=== PATIENT | male | born 1955 | race Caucasian/White ===

== ENCOUNTER → 2017-05-12 06:01 | Outpatient (CLI) | payer OTHER, SELFPAY ==
[2017-05-12 08:24] LABS: Hemoglobin A1c 6.9 % (4.2-6.3)
[2017-05-12 08:31] LABS: AST(SGOT) 24 U/L (15-37); Alanine Aminotransfer ALT/SGPT 32 U/L (16-61); Albumin, Serum 3.3 g/dL (3.2-5.0); Alkaline Phosphatase 52 U/L (45-117); Anion Gap 6 (5-15); BUN 14 mg/dL (7-18); BUN/Creat Ratio 17.7 RATIO (10-20); Calcium,Total 8.3 mg/dL (8.5-10.1); Chloride 110 mmol/L (98-107); Cholesterol 181 mg/dL (200); Creatinine, Serum 0.79 mg/dL (0.70-1.30); EST Glomerular Filtration Rate 107 mL/min (>60); Est Glom Filt Rate - Afr Amer 129 mL/min (>60); Globulin 3.3 g/dL (2.2-4.2); Glucose 73 mg/dL (74-106); High Density Lipoprotein 44 mg/dL; Potassium 3.9 mmol/L (3.5-5.1); Protein, Total 6.6 g/dL (6.4-8.2); Sodium Level 143 mmol/L (136-145); Triglycerides 81 mg/dL; Very Low Density Lipoprotein 16 mg/dL (5-40)
== END ==
PROVIDERS: Family Provider Internal Medicine; PCP Internal Medicine; Visit Provider Nurse Practitioner
DX: E10.65 Type 1 diabetes mellitus with hyperglycemia (principal); E78.2 Mixed hyperlipidemia
CPT/HCPCS: 36415; 80053; 80061; 83036

== ENCOUNTER → 2017-08-28 06:00 | Outpatient (CLI) | payer OTHER, SELFPAY ==
[2017-08-28 07:48] LABS: Hemoglobin A1c 7.4 % (4.2-6.3)
[2017-08-28 07:50] LABS: ALB/GLOB Ratio 0.9 RATIO (0.9-2.4); AST(SGOT) 25 U/L (15-37); Alanine Aminotransfer ALT/SGPT 32 U/L (16-61); Albumin, Serum 3.2 g/dL (3.2-5.0); Alkaline Phosphatase 52 U/L (45-117); Anion Gap 7 (5-15); BUN 16 mg/dL (7-18); BUN/Creat Ratio 18.8 RATIO (10-20); Calcium,Total 8.3 mg/dL (8.5-10.1); Chloride 108 mmol/L (98-107); Cholesterol 180 mg/dL (200); Creatinine, Serum 0.85 mg/dL (0.70-1.30); EST Glomerular Filtration Rate 98 mL/min (>60); Est Glom Filt Rate - Afr Amer 118 mL/min (>60); Globulin 3.4 g/dL (2.2-4.2); Glucose 87 mg/dL (74-106); High Density Lipoprotein 41 mg/dL; Protein, Total 6.6 g/dL (6.4-8.2); Sodium Level 142 mmol/L (136-145); Triglycerides 123 mg/dL; Very Low Density Lipoprotein 25 mg/dL (5-40)
== END ==
PROVIDERS: Family Provider Internal Medicine; PCP Internal Medicine; Visit Provider Nurse Practitioner
DX: E10.9 Type 1 diabetes mellitus without complications (principal)
CPT/HCPCS: 36415; 80053; 80061; 83036

== ENCOUNTER → 2017-10-02 09:26 | Outpatient (CLI) | payer OTHER, SELFPAY ==
[2017-10-02 10:55] LABS: PTHIN 58.7 pg/mL (18.4-80.1)
[2017-10-05 16:56] LABS: Vitamin D 1,25-Dihydroxy 91.8 pg/mL (19.9-79.3)
== END ==
PROVIDERS: Family Provider Internal Medicine; PCP Internal Medicine; Visit Provider Nurse Practitioner
DX: E83.51 Hypocalcemia (principal)
CPT/HCPCS: 36415; 82330; 82652; 83970

== ENCOUNTER → 2018-01-01 05:55 | Outpatient (CLI) | payer OTHER, SELFPAY ==
[2018-01-01 06:48] LABS: Microalbumin,Random Urine 6.4 mg/L (NO RANGE EST.); Microalbumin:Creatinine Ratio 4.6 mg/g CRE (<30 mg/g CRE)
[2018-01-01 06:55] LABS: ALB/GLOB Ratio 0.9 RATIO (0.9-2.4); AST(SGOT) 34 U/L (15-37); Alanine Aminotransfer ALT/SGPT 62 U/L (16-61); Albumin, Serum 3.2 g/dL (3.2-5.0); Alkaline Phosphatase 102 U/L (45-117); Anion Gap 5 (5-15); BUN 14 mg/dL (7-18); BUN/Creat Ratio 16.2 RATIO (10-20); Calcium,Total 8.9 mg/dL (8.5-10.1); Chloride 109 mmol/L (98-107); Creatinine, Serum 0.86 mg/dL (0.70-1.30); EST Glomerular Filtration Rate 96 mL/min (>60); Est Glom Filt Rate - Afr Amer 116 mL/min (>60); Globulin 3.6 g/dL (2.2-4.2); Glucose 113 mg/dL (74-106); Potassium 4.2 mmol/L (3.5-5.1); Protein, Total 6.8 g/dL (6.4-8.2); Sodium Level 140 mmol/L (136-145)
[2018-01-01 07:06] LABS: Hemoglobin A1c 6.6 % (4.2-6.3)
== END ==
PROVIDERS: Family Provider Internal Medicine; PCP Internal Medicine; Referring Provider Nurse Practitioner; Visit Provider Nurse Practitioner
DX: E10.9 Type 1 diabetes mellitus without complications (principal)
CPT/HCPCS: 36415; 80053; 82043; 82570; 83036

== ENCOUNTER 2018-03-30 10:27 | Emergency (ER) | payer OTHER, SELFPAY ==
[2018-03-30 10:30] VITALS: BP 137/68; PULSE 103; RESP 18; TEMP 37.3; O2SAT 92; BMI 23.8
--- NOTE | 2018-03-30 10:41 | RAD_ITS ---
STUDY: X-RAY CHEST REASON FOR EXAM: Male, 62 years old. Flulike symptoms. TECHNIQUE: Single AP portable view of the chest. COMPARISON: None. FINDINGS: Minimal increased linear markings in the medial aspects of the lower lobes suggestive of atelectasis and/or early infiltrate. There is no demonstrated pleural abnormality. Normal size heart. Normal mediastinum and jake. Normal visualized pulmonary arteries. Normal visualized aortic arch and descending thoracic aorta. Normal visualized thoracic spine. Normal visualized ribs, clavicles, and shoulders. There is no demonstrated abnormality of the visualized soft tissue structures of the upper abdomen. RAD/Chest 1 View (Portable) IMPRESSION: Mild degree of increased linear markings in the medial aspects of both lower lobes as described. Follow-up is recommended. Electronically Signed: Alexander Bauer MD at 11:03 EST , Service support ,
--- NOTE | 2018-03-30 10:45 | ED.VISSUMM ---
- ER Visit Summary Date of Service: 03/30/18 Chief Complaint: Cough, congestion, fever History of Present Illness: The patient is a 62 M developed nausea, vomiting, and diarrhea on the evening of March 27. He continues with the symptoms. He is complaining of body aches and headache. He has noted decreased urination with some slight burning. He does have mild cough. Past history is significant for diabetes along with prostate cancer. Physical Examination: Blood pressure is 137/68, temperature 99.1, heart rate 103, respiratory rate 18, pulse ox 92% on room air. Patient sitting upright in bed. He is in no acute distress and nontoxic appearing. Head neck examination grossly unremarkable. Heart is regular rate and rhythm. Lungs sounds are clear. Abdomen is soft with no focal tenderness. Hypoactive bowel sounds are present. Test Results: CBC was normal white count with a left shift. Chemistry studies reveal BUN of 24. Glucose is 128. Portable chest x-ray shows mild increased linear markings in the medial aspect of both lower lobes. Emergency Department Course and Treatment: Patient is given 2 mg of morphine, 30 mg of Toradol, Zofran, and IV fluids. Influenza swab was obtained and returns positive for flu A. Patient is given Tamiflu. He has received 2 L of fluid and still has not had to urinate. Bladder scan shows 220 cc. Patient be discharged home with a prescription for Tamiflu. Treatment Plan: [] Disposition: Discharge Impression: Influenza A This note was generated with [employer] dictation software. It may contain incorrect words, spelling, and punctuation that were not noted in review of the chart prior to signing ED Disposition - Plan for ED Patient: Chief Complaint: General Illness Referrals: Yesi Lombardo NP-C [Nurse Practitioner] -
[2018-03-30] MEDS: Morphine 2 MG/ML Syringe IV (10:52)
[2018-03-30] MEDS: Ondansetron 4 MG/2 ML Vial IV (10:52)
[2018-03-30] MEDS: Ketorolac 30 MG/ML Syringe IV (10:52)
[2018-03-30] MEDS: 0.9% Normal Saline 1,000 ML 1000 ML IV (10:52)
[2018-03-30 10:57] LABS: Absolute Lymphocyte Count 0.56 X10^3/ul (0.83-4.51); Basophil# 0.01 X10^3/uL; Basophil% 0.1 % (0-1); Hematocrit 40.2 % (40-54); Hemoglobin 12.8 g/dl (13.0-16.5); Lymphocyte # 0.56 X10^3/ul (4.0); Lymphocyte % 5.8 % (19-41); Mean Corp Hgb Conc 31.8 g/gl (32-36); Mean Corpuscular Hgb 27.6 pg (27.0-32.0); Mean Corpuscular Volume 86.8 fL (80-94); Mean Platelet Vol. 10.1 fl (6.2-12.0); Monocyte# 1.11 X10^3/uL; Monocyte% 11.4 % (0-10); Neutrophil # 8.02 X10^3/uL (2.7-7.7); Neutrophil % 82.4 % (47-70); Platelet Count 173 K/mm3 (150-450); RBC Distribution Width CV 14.4 % (11.6-14.6); RBC Distribution Width SD 45.1 fl (35.1-43.9); Red Blood Count 4.63 M/mm3 (4.6-6.2); White Blood Count 9.7 K/mm3 (4.4-11.0)
[2018-03-30 10:58] LABS: Differential Indicated SCAN CRITERIA MET; POSITIVE COUNT NO; POSITIVE DIFFERENTIAL YES; POSITIVE MORPHOLOGY NO
[2018-03-30 11:07] LABS: Anion Gap 10 (5-15); BUN 24 mg/dL (7-18); BUN/Creat Ratio 21.1 RATIO (10-20); Calcium,Total 8.6 mg/dL (8.5-10.1); Chloride 101 mmol/L (98-107); Creatinine, Serum 1.14 mg/dL (0.70-1.30); EST Glomerular Filtration Rate 70 mL/min (>60); Est Glom Filt Rate - Afr Amer 84 mL/min (>60); Estimated Creatinine Clearance 66.67 ml/min; Glucose 128 mg/dL (74-106); Potassium 4.3 mmol/L (3.5-5.1); Sodium Level 135 mmol/L (136-145)
[2018-03-30 11:17] LABS: Differential Comment SCANNED
--- NOTE | 2018-03-30 11:32 | ED.RN ---
FLU POS A CALLED FROM THE LAB. DR PRADO AWARE
[2018-03-30 11:33] VITALS: BP 114/58; PULSE 69; RESP 16; TEMP 37.3; O2SAT 91
[2018-03-30] MEDS: Oseltamivir Phosphate 75 MG Capsule PO (11:50)
[2018-03-30] MEDS: 0.9% Normal Saline 1,000 ML 150 ML IV (11:50)
[2018-03-30] MEDS: 0.9% Normal Saline 1,000 ML 999 ML IV (12:03)
[2018-03-30 13:00] VITALS: BP 124/71; PULSE 73; RESP 16; TEMP 37.2; O2SAT 93
[2018-03-30 14:00] VITALS: BP 127/62; PULSE 81; RESP 16
--- NOTE | 2018-03-30 14:08 | ED.DEP ---
ED Disposition - Plan for ED Patient: Disposition: Home or Assisted Living Chief Complaint: General Illness Instructions: ED Flu Prescriptions: Oseltamivir Phosphate [Tamiflu] 75 mg PO BID #10 capsule Referrals: Yesi Lombardo NP-C [Nurse Practitioner] -
[2018-03-30 14:21] VITALS: BP 127/62; PULSE 81; RESP 16
== END 2018-03-30 14:23 | disposition home or self-care (01) ==
PROVIDERS: Emergency Provider Emergency Medicine; Family Provider Internal Medicine; PCP Internal Medicine
DX: J09.X3 Influenza due to identified novel influenza A virus with gastrointestinal manifestations (principal); E11.9 Type 2 diabetes mellitus without complications; Z85.46 Personal history of malignant neoplasm of prostate; Z79.4 Long term (current) use of insulin; Z79.82 Long term (current) use of aspirin
CPT/HCPCS: 71045; 80048; 85025; 87804; 96361; 96374; 96375; 99284; J7030; J2405

== ENCOUNTER → 2018-04-12 05:57 | Outpatient (CLI) | payer OTHER, SELFPAY ==
[2018-03-30 10:30] VITALS: BMI 23.8
[2018-04-12 08:04] LABS: Hemoglobin A1c 7.3 % (4.2-6.3)
== END ==
PROVIDERS: Family Provider Internal Medicine; PCP Internal Medicine; Referring Provider Nurse Practitioner; Visit Provider Nurse Practitioner
DX: E10.9 Type 1 diabetes mellitus without complications (principal)
CPT/HCPCS: 36415; 83036

== ENCOUNTER → 2018-04-14 06:59 | Outpatient (CLI) | payer OTHER, SELFPAY ==
[2018-03-30 10:30] VITALS: BMI 23.8
[2018-04-16 09:22] LABS: Vitamin D,25 Hydroxy 26.1 ng/mL (29.95-100.01)
== END ==
PROVIDERS: Family Provider Internal Medicine; PCP Internal Medicine; Referring Provider Nurse Practitioner; Visit Provider Nurse Practitioner
DX: R97.20 Elevated prostate specific antigen [PSA] (principal); E56.9 Vitamin deficiency, unspecified
CPT/HCPCS: 36415; 82306; 84153; G0103

== ENCOUNTER → 2018-04-24 09:31 | Outpatient (CLI) | payer OTHER, SELFPAY ==
[2018-03-30 10:30] VITALS: BMI 23.8
== END ==
PROVIDERS: Family Provider Internal Medicine; PCP Internal Medicine; Referring Provider Urology; Visit Provider Urology
DX: R97.20 Elevated prostate specific antigen [PSA] (principal)
CPT/HCPCS: 36415; 84153

== ENCOUNTER → 2018-05-10 08:00 | Outpatient (CLI) | payer OTHER, SELFPAY ==
--- NOTE | 2018-05-10 | IMM_PTH ---
PATIENT: NICOLE LANGE LOC: [facility] U#:[id number] AGE/SX: 69/M ROOM: RE05/10/[address]: AJ Gayle : 1955 BED: DIS: SPEC #: [id number] RECD: 05/14/18 11:53 STATUS: BIENVENIDO REQ #: [id number] ETIENNE: 05/10/18 00:[address]: Ingrid Chapa NP DEPT: IMMUNOHISTOCHEMISTRY RECD BY: Gracie Ralph ENTERED: 05/14/18 11:54 SP TYPE: IMMUNO OTHR DR: Dr. Kaylan Fajardo MD Tissues: E - PROSTATE LEFT Procedures: P40 (add) 34BE12 (initial) PHYSICIAN & INSTITUTION [place] [address] SPECIMEN INFORMATION: Tissue Source: E - Left prostate, mid, core biopsy Clinical Info: Elevated PSA Specimen Number: [id number] CPT code: 89082, 03376 METHODOLOGY: Deparaffinized sections of prefer/formalin-fixed tissue or PAP/DQ stained slides are incubated with monoclonal/polyclonal antibodies/oligonucleotide probes. Localization is made via biotin free immunoperoxidase method. Appropriate controls are performed and reacted as expected. Results on target cell population are indicated in the following table: RESULTS: ANTIBODY / CLONE RESULT Block E P40 (BC28) negative 34BE12 (34BE12) negative These tests were developed and their performance characteristics determined by [facility]. They may not have been cleared or approved by the U.S. Food and Drug Administration. The FDA has determined that such clearance or approval is not necessary. INTERPRETATION: E. Left prostate, mid, core biopsy: Adenocarcinoma. AM:severo 05/15/18
--- NOTE | 2018-05-10 08:00 | PROSBIL_PTH ---
PATIENT: NICOLE LANGE LOC: [facility] U#:[id number] AGE/SX: 69/M ROOM: RE05/10/[address]: AJ Gayle : 1955 BED: DIS: SPEC #: [id number] RECD: 05/10/18 16:30 STATUS: BIENVENIDO KRISTOPHER #: [id number] ETIENNE: 05/10/18 08:[address]: Ingrid Chapa NP DEPT: SURGICAL PATHOLOGY RECD BY: Ami Green ENTERED: 05/11/18 08:57 SP TYPE: PROST BX HOSSEIN DR: Dr. Kaylan Fajardo MD Tissues: A - PROSTATE RIGHT B - PROSTATE RIGHT C - PROSTATE RIGHT D - PROSTATE LEFT E - PROSTATE LEFT F - PROSTATE LEFT Procedures: PROSTATE BX HEADER OPERATION: Prostate biopsy PRE-OP DIAGNOSIS: Elevated PSA TISSUE SUBMITTED: A - Right apex, B - Right mid, C - Right base, D - Left apex, E - Left mid, F - Left base MICROSCOPIC DIAGNOSIS A. Right prostate, apex, core biopsy: Benign prostatic tissue. B. Right prostate, mid, core biopsy: Focal glandular atrophy. C. Right prostate, base, core biopsy: Focal high-grade prostatic intraepithelial neoplasia (HGPIN). Glandular atrophy. D. Left prostate, apex, core biopsy: Benign prostatic tissue. E. Left prostate, mid, core biopsy: Adenocarcinoma: [place] grade: 6 (3+3) Cores involved: 1 out of 2 cores Tissue involved: 2% Greatest tumor length: 1.5 mm See comment. F. Left prostate, base, core biopsy: Focal high-grade prostatic intraepithelial neoplasia (HGPIN). AM:severo 05/14/18 COMMENT E. Immunohistochemistry ([id number]) supports the above diagnosis. MICROSCOPIC DESCRIPTION Slides are reviewed. GROSS DESCRIPTION A - Received is one container designated prostate, right apex. The specimen consists of two elongated fragments of light patton-white soft tissue each measuring 1 cm in length and 0.1 cm in diameter. The specimen is totally submitted in one cassette. B - Received is one container designated prostate, right mid. The specimen consists of two elongated fragments of light patton-white soft tissue each measuring 1 cm in length and 0.1 cm in diameter. The specimen is totally submitted in one cassette. C - Received is one container designated prostate, right base. The specimen consists of two elongated fragments of light patton-white soft tissue each measuring 1 cm in length and 0.1 cm in diameter. The specimen is totally submitted in one cassette. D - Received is one container designated prostate, left apex. The specimen consists of two elongated fragments of light patton-white soft tissue each measuring 1 cm in length and 0.1 cm in diameter. The specimen is totally submitted in one cassette. E - Received is one container designated prostate, left mid. The specimen consists of two elongated fragments of light patton-white soft tissue each measuring 1 cm in length and 0.1 cm in diameter. The specimen is totally submitted in one cassette. F - Received is one container designated prostate, left base. The specimen consists of two elongated fragments of light patton-white soft tissue each measuring 1.5 cm in length and 0.1 cm in diameter. The specimen is totally submitted in one cassette. / AM:severo 05/11/18 TC:0 [facility]: [id number] x6 ADDENDUM ADDENDUM ADDENDUM ADDENDUM ADDENDUM ADDENDUM ADDENDUM ADDENDUM 06/13/2018 10:05 ADDENDUM 06/13/2018 10:05 ADDENDUM 06/13/2018 10:05 ADDENDUM 06/13/2018 10:05 ADDENDUM 06/13/2018 10:05 An order for Oncotype testing was received from Dr. Benítez. This necessitated case review, block and slide selection by pathologist at [facility]. Genomic Prostate Score = 26 Results of the complete Oncotype testing ([facility] report) are viewable in EMR under: Reports - Pathology - Lab Pathology Report, Scanned.
== END ==
PROVIDERS: Family Provider Internal Medicine; PCP Internal Medicine; Referring Provider Nurse Practitioner Adult Health; Visit Provider Nurse Practitioner Adult Health
DX: R97.20 Elevated prostate specific antigen [PSA] (principal)
CPT/HCPCS: 88305; 88341; 88342; G0416

== ENCOUNTER → 2018-08-14 | Outpatient (CLI) | payer OTHER, SELFPAY ==
[2018-08-14 07:37] LABS: Absolute Lymphocyte Count 1.59 X10^3/ul (0.83-4.51); Absolute Neutrophil Count 3.8 X10^3/uL (2.0-7.7); Basophil# 0.05 X10^3/uL; Basophil% 0.8 % (0-1); Eosinophil# 0.12 X10^3/uL; Eosinophils% 1.9 % (0-5); Hematocrit 40.6 % (40-54); Lymphocyte # 1.59 X10^3/ul (4.0); Mean Corpuscular Hgb 27.1 pg (27.0-32.0); Mean Corpuscular Volume 84.8 fL (80-94); Mean Platelet Vol. 10.1 fl (6.2-12.0); Monocyte# 0.84 X10^3/uL; Monocyte% 13.2 % (0-10); Neutrophil # 3.76 X10^3/uL (2.7-7.7); Neutrophil % 58.9 % (47-70); Platelet Count 335 K/mm3 (150-450); RBC Distribution Width CV 14.1 % (11.6-14.6); RBC Distribution Width SD 43.8 fl (35.1-43.9); Red Blood Count 4.79 M/mm3 (4.6-6.2); White Blood Count 6.4 K/mm3 (4.4-11.0)
[2018-08-14 07:41] LABS: POSITIVE COUNT NO; POSITIVE DIFFERENTIAL NO; POSITIVE MORPHOLOGY NO
[2018-08-14 08:06] LABS: Microalbumin,Random Urine < 5.0 mg/L (NO RANGE EST.)
[2018-08-14 08:18] LABS: ALB/GLOB Ratio 0.8 RATIO (0.9-2.4); AST(SGOT) 19 U/L (15-37); Alanine Aminotransfer ALT/SGPT 26 U/L (16-61); Albumin, Serum 3.1 g/dL (3.2-5.0); Alkaline Phosphatase 65 U/L (45-117); Anion Gap 3 (5-15); BUN 13 mg/dL (7-18); BUN/Creat Ratio 15.2 RATIO (10-20); Calcium,Total 8.5 mg/dL (8.5-10.1); Chloride 108 mmol/L (98-107); Cholesterol 188 mg/dL (200); Creatinine, Serum 0.86 mg/dL (0.70-1.30); EST Glomerular Filtration Rate 97 mL/min (>60); Est Glom Filt Rate - Afr Amer 117 mL/min (>60); Globulin 3.7 g/dL (2.2-4.2); Glucose 72 mg/dL (74-106); High Density Lipoprotein 44 mg/dL; Potassium 4.2 mmol/L (3.5-5.1); Protein, Total 6.8 g/dL (6.4-8.2); Sodium Level 140 mmol/L (136-145); Thyroid Stim Hormone (TSH) 1.53 uIU/mL (0.358-3.74); Triglycerides 78 mg/dL; Very Low Density Lipoprotein 16 mg/dL (5-40)
== END | disposition home or self-care (01) ==
LOC: LAB 06:09
PROVIDERS: Family Provider Internal Medicine; PCP Internal Medicine
DX: E10.65 Type 1 diabetes mellitus with hyperglycemia (principal)
CPT/HCPCS: 36415; 80053; 80061; 82043; 82570; 83036; 84439; 84443; 85025

== ENCOUNTER → 2018-10-19 | Outpatient (CLI) | payer OTHER, SELFPAY ==
[2018-10-19 17:49] LABS: PSA,Total- Diagnostic 7.21 ng/mL (0.0-4.0)
== END | disposition home or self-care (01) ==
LOC: LAB 15:23
PROVIDERS: Family Provider Internal Medicine; PCP Internal Medicine; Referring Provider Urology; Visit Provider Urology
DX: C61 Malignant neoplasm of prostate (principal)
CPT/HCPCS: 36415; 84153

== ENCOUNTER 2019-01-30 05:52 | Day surgery (SDC) | payer OTHER, SELFPAY ==
[2019-01-22 11:31] VITALS: BP 139/77; PULSE 70; RESP 16; TEMP 36.2; O2SAT 97; BMI 25.5
--- NOTE | 2019-01-22 11:36 | SDCEKG_ITS ---
Test Reason : Blood Pressure : / mmHG Vent. Rate : 063 BPM Atrial Rate : 063 BPM P-R Int : 148 ms QRS Dur : 086 ms QT Int : 390 ms P-R-T Axes : 048 043 050 degrees QTc Int : 399 ms Normal sinus rhythm Normal ECG Confirmed by KANIKA ERNST, THERESE ([id number]), scientific editor GEORGE SURESH ([id number]) on 01/28/2019 9:51:02 AM Referred By: Tadeo Benítez Confirmed By:THERESE BOUDREAUX MD
[2019-01-22 12:31] LABS: Anion Gap 5 (5-15); BUN 16 mg/dL (7-18); BUN/Creat Ratio 16.4 RATIO (10-20); Calcium,Total 8.2 mg/dL (8.5-10.1); Chloride 107 mmol/L (98-107); Creatinine, Serum 0.98 mg/dL (0.70-1.30); EST Glomerular Filtration Rate 83 mL/min (>60); Est Glom Filt Rate - Afr Amer 100 mL/min (>60); Estimated Creatinine Clearance 74.01 ml/min; Glucose 310 mg/dL (74-106); Hematocrit 39.8 % (40-54); Hemoglobin 12.6 g/dL (13.0-16.5); Mean Corp Hgb Conc 31.7 g/dL (32-36); Mean Corpuscular Hgb 27.4 pg (27.0-32.0); Mean Corpuscular Volume 86.5 fL (80-94); Mean Platelet Vol. 10.4 fl (6.2-12.0); Platelet Count 275 K/mm3 (150-450); Potassium 4.6 mmol/L (3.5-5.1); RBC Distribution Width CV 13.9 % (11.6-14.6); RBC Distribution Width SD 44.1 fl (35.1-43.9); Sodium Level 138 mmol/L (136-145); White Blood Count 5.4 K/mm3 (4.4-11.0)
[2019-01-22 13:13] LABS: Hemoglobin A1c 6.8 % (4.2-6.3)
[2019-01-30] VITALS (14 sets, daily range): BP systolic 86–129; BP diastolic 44–67; PULSE 57–91; RESP 16–17; TEMP 36.4–37.2; O2SAT 95–100; BMI 25.2
[2019-01-30 06:21] LABS: Bedside Glucose 200 mg/dL (70-110)
[2019-01-30] MEDS: Lactated Ringers 1,000 ML 100 ML IV ×2 (06:47→06:48)
[2019-01-30] MEDS: Cefazolin 2 GM in 0.9% Normal Saline 100 ML IV (07:28)
--- NOTE | 2019-01-30 07:30 | PROST_PTH ---
PATIENT: [place]ICOLE [place]ANGE [place] [facility] [id number] AGE/SX: 63/M ROOM: RE01/30/[address]: Dr. Tadeo Benítez MD : 1955 BED: DIS: 01/31/2019 SPEC #: [id number] RECD: 01/30/19 12:57 STATUS: BIENVENIDO RESteve #: [id number] ETIENNE: 01/30/19 07:[address]: Tadeo Benítez DEPT: SURGICAL PATHOLOGY RECD BY: Ami Green ENTERED: 01/30/19 13:22 SP TYPE: PROSTATE OTHR DR: Dr. Kaylan Fajardo MD Tissues: A - Adipose tissue B - Prostate, NOS Procedures: Surgery Specimen Level IV Surgery Specimen Level HEADER OPERATION: Lap, robotic radical prostatectomy PRE-OP DIAGNOSIS: Malignant neoplasm of prostate elevated PSA, nocturia TISSUE SUBMITTED: A. Fat of prostate, B. Prostate MICROSCOPIC DIAGNOSIS A. Fat over prostate: Mature adipose tissue, negative for carcinoma. B. Prostate, radical prostatectomy: Prostatic adenocarcinoma. See cancer summary below. SJ:severo 02/04/19 RADICAL PROSTATECTOMY CANCER SUMMARY Procedure: Radical Prostatectomy Prostate Size: Weight: 74 gm Size: 6 cm craniocaudally, 5 cm transversely and 4 cm anterior-posteriorly Histologic type: Acinar adenocarcinoma Histologic grade: Grade group 1 (Candice score 3+3=6) Tumor Quantitation: Estimated percentage of prostate involved by tumor: <5% Extraprostatic Extension: Not identified Seminal Vesicle Invasion: Not identified Lymphovascular Invasion: Not identified Perineural Invasion: Present, focal Margins: Uninvolved by invasive carcinoma. See comment. Treatment Effect: No known presurgical therapy Regional Lymph Nodes: No nodes submitted or found. Distant metastasis: Not applicable Additional Pathologic Findings: Focal high-grade prostatic intraepithelial neoplasia (HGPIN). - Benign prostatic hyperplasia. - Chronic inflammation. Pathologic Staging: pT2 pNx Mx The above summary is in compliance with [employer] (CAP) Cancer Protocol Checklist and [place] Joint Committee on Cancer (AJCC) Staging Manual, 8th Ed. COMMENT Focal high-grade prostatic intraepithelial neoplasia (HGPIN) is noted at the apical margin. The tumor involves predominantly the left lobe and present in the apical, mid and basal portion of the prostate lobe and measures 1.5 x 0.4 cm. The tumor is present in the discontinuous fashion. The tumor in the right lobe is present in the apical and mid portion of the prostate and measures 0.5 x 0.2 cm in greatest dimension. Please make reference to previous specimen ([id number]) left prostate, mid, core biopsy with diagnosis of adenocarcinoma and right prostate, base and left prostate base, core biopsies with diagnosis of focal high-grade prostatic intraepithelial neoplasia and right prostate, apex, core biopsy and left prostate, apex, core biopsy with diagnosis of benign prostatic tissue and right prostate, mid, core biopsy with diagnosis of focal glandular atrophy. Case has been reviewed in consultation with Dr. Ramirez who concurs with the above diagnosis. IDC:AM MICROSCOPIC DESCRIPTION Slides are reviewed. GROSS DESCRIPTION A - Received in fixative is one container labeled with the patient's name and designated fat of prostate. The specimen consists of an irregular piece of yellow adipose tissue measuring 7.5 x 1.5 x 0.5 cm. No mass lesion is identified. The entire specimen is submitted in two cassettes. Sections will be submitted after overnight fixation. / SJ:severo 01/30/19 B - Received in fixative is one container labeled with the patient's name and designated prostate. The specimen consists of a radical prostatectomy specimen consisting of prostate and bilateral seminal vesicles and vas deferens weighing 74 gm. The prostate measures 6 cm craniocaudally, 5 cm transversely and 4 cm anterior-posteriorly. The right seminal vesicle measures 4 x 1 x 1 cm and right vas deferens measures 3.5 cm in length and 0.5 cm in diameter and left seminal vesicle measures 2.5 x 2 x 1 cm and left vas deferens measures 2.5 cm in length and 0.5 cm in diameter. The prostate is inked as follows: anterior surface - yellow, posterior surface - black, right lateral surface - blue, left lateral surface - green. Bilateral seminal vesicles and vas deferens are inked as follows: posterior surface - black, anterior surface right seminal vesicle and vas deferens - blue, anterior surface left seminal vesicle and vas deferens - green. Sections do not reveal any obvious mass lesion. Podiatry Assistant sections are submitted in 20 cassettes as follows: 1 - bilateral seminal vesicles and vas deferens, 2 - distal, apical (urethral) margin, enface, 3 - proximal bladder base margin, enface, 4 - most basal portion of prostate, 510 - apical portion prostate, 11-14 - middle portion prostate, 15-20 - basal portion prostate. / SJ:rg 02/01/19 TC:0 CPT: 99758, 20288
--- NOTE | 2019-01-30 07:42 | PCM.DC ---
- Discharge Diagnoses Current Active Problems: Prostate cancer Reason(s) for Visit for Discharge Instructions: Robotic radical prostatectomy You will use the following diet at home:: Regular Your food should be the consistency of: Regular Discharge Activity: Return to Normal Activity, May Not Drive, May not drive while taking narcotic pain medications., May Shower Return to work on:: 03/06/19 May shower in (days): 1 Call your doctor if your incision/area has: Continuous Slow Oozing, Sudden Increased Bleeding, Increased Pain/ Swelling, Increased Redness, Foul Smelling Discharge, Swelling at the incision site Call your doctor if you observe: Fever of 101 or Higher, Inability to have a bowel movement, Uncontrolled pain Suture Line Care: Avoid Pulling/Pushing, Avoid Pinching/Bending Catheter: Chambers to leg bag Drain: [place] Instructions: Radical Prostatectomy Allergies/Adverse Reactions: Allergies enalaprilat [From Vasotec] Allergy (Severe, Verified 01/30/19 06:22) Unknown lovastatin Allergy (Severe, Verified 01/30/19 06:22) Unknown niacin Allergy (Severe, Verified 01/30/19 06:22) Unknown pravastatin [From Pravachol] Allergy (Severe, Verified 01/30/19 06:22) Unknown ramipril [From Altace] Allergy (Severe, Verified 01/30/19 06:22) Unknown rosuvastatin [From Crestor] Allergy (Severe, Verified 01/30/19 06:22) Unknown simvastatin [From Zocor] Allergy (Severe, Verified 01/30/19 06:22) Unknown hydrocodone Adverse Reaction (Verified 01/30/19 06:22) Nausea/Vom/Diarrhea Medications to take at Discharge aspirin 325 mg tablet 325 mg PO QDAY tab 04/27/17 insulin aspart U-100 100 unit/mL subcutaneous solution See Rx Instructions SC QDAY #90 ml 10/17/17 Multivitamin [Multiple Vitamins] 1 ea PO DAILY 01/22/19 Ciprofloxacin [Cipro] 500 mg PO BID #14 tab 01/30/19 Docusate Sodium [Colace] 100 mg PO BID #20 cap 01/30/19 Hydrocodone/Acetaminophen [[place] 5-325 Tablet] 1 ea PO Q6H PRN PRN 5 Days #14 tab 01/30/19 The following prescriptions were given: Ciprofloxacin [Cipro] 500 mg PO BID #14 tab Prescription Printed Docusate Sodium [Colace] 100 mg PO BID #20 cap Prescription Printed Hydrocodone/Acetaminophen [[place] 5-325 Tablet] 1 ea PO Q6H PRN PRN 5 Days #14 tab PRN Reason: Pain Score 4-10/10 Prescription Printed Primary Care Physician: Kaylan Fajardo [Primary Care Provider] - Test Results: Test results from this visit will be discussed in further detail at your follow-up appointment, if applicable. Please Follow Up With: Tadeo Benítez MD When: Call for an appointment 10 days Proposed Discharge Date: 01/31/19
[2019-01-30] MEDS: Bupivacaine Mpf 0.5% 30 ML VIAL (10:30)
--- NOTE | 2019-01-30 11:17 | PCM.OPRPT ---
Report of Operation Date of Procedure: 01/30/19 Pre-Operative Diagnosis: Prostate cancer Post-Operative Diagnosis: The same Surgery/Procedure Performed:: Laparoscopic robotic assisted radical prostatectomy with bilateral nerve sparing Description of Surgical Findings:: 63-year-old male taken back to the operating room at the smooth induction of general anesthesia he was placed supine on the table with the legs in stirrups he was positioned for a radical prostatectomy, his abdomen was shaved prepped and draped in usual sterile fashion use a Veress needle to enter the peritoneal cavity and then in the insufflated the peritoneal cavity with CO2 gas I then docked my ports camera port and robotic ports we then docked the robot I first dissected the colon off the lateral wall of the pelvis I then went down down to the pelvis open up the peritoneum over the vas deferens and seminal vesicles dissected out the vas deferens and seminal vesicles. And then swept the Denonvilliers' fascia from below the prostate all the way to the apex. We then pulled out of the pelvis and then we drop the bladder created the space of Retzius pulled the bladder on traction I cleaned the fat off the prostate I then incised the lateral pelvic fascia on the right side in the lateral pelvic fashion the left of the prostate dissected to the apex we then placed a stitch in the dorsal vein complex came back between the bladder and prostate dissected between the bladder and prostate the bladder off the prostate he had a large median lobe at the dissected wide to get around the median lobe and then dissected the bladder off the prostate completely I then raised the seminal vesicle vas deferens up on the right side we incised the fascia over the prostate and then released the neurovascular bundles on the right side coming back to the pedicle of the prostate pedicles taken with clips and then we stopped the neurovascular bundle off the prostate on the right side a very large round prostate. We then went to the left side and then again dissected the neurovascular bundle off the left side sweeping the tissue off the prostate were carried back to the pedicle pedicles and taken with clips and then we released neurovascular bundles all the way up to the apex of the prostate both the right and left side, I then transected through the dorsal vein complex transfer to the urethra nice urethral sparing surgery and then remove the prostate we reconstructed the bladder neck with a 0 Vicryl stitches to to close up the gap because of the large median lobe and then we did anastomosis between the bladder neck and the urethra over catheter. This was done very meticulous fashion there was no leakage at the end of the reconstruction and the anastomosis between the bladder neck and the urethra. I did a nice enough nerve sparing on both the right and left side very nice anastomosis between the bladder and the urethra we then extracted the prostate we closed our camera port with 2 figure of 8 stitches we closed our air seal port with a Jed Carlin stitch all the ports were removed the patient anesthetic reversed taken back to PACU in good condition with a catheter in place. Type of Anesthesia:: General Drains: richards - Admit VTE Documentation VTE Present on Admission: No VTE Mechan Device Prophylaxis: SCD's
[2019-01-30 11:36] LABS: Bedside Glucose 204 mg/dL (70-110)
[2019-01-30] MEDS: Ketorolac 15 MG/ML Vial IV ×3 (12:03→23:24)
[2019-01-30] MEDS: 0.45% Normal Saline 1,000 ML 125 ML IV ×2 (13:29→21:17)
[2019-01-30] MEDS: Docusate Sodium 100 MG Capsule PO ×2 (15:49→21:17)
[2019-01-30] MEDS: Ciprofloxacin 500 MG Tablet PO ×2 (15:49→21:17)
[2019-01-30] MEDS: Pantoprazole Sodium 20 MG Tablet PO (15:49)
[2019-01-30] MEDS: Insulin Lispro 100 UNIT/ML INSULN.PEN SC (15:51)
[2019-01-30 16:06] LABS: Bedside Glucose 257 mg/dL (70-110)
[2019-01-30] MEDS: Magnesium Hydroxide 30 ML UDC 15 ML PO (17:45)
[2019-01-30] MEDS: 0.9% Normal Saline 1,000 ML 999 ML IV (17:45)
[2019-01-30] MEDS: 0.9% Saline Lock 10 ML Syringe IV (17:52)
[2019-01-30 18:41] LABS: Absolute Lymphocyte Count 0.77 X10^3/uL (0.83-4.51); Absolute Neutrophil Count 15.7 X10^3/uL (2.0-7.7); Basophil# 0.03 X10^3/uL; Basophil% 0.2 % (0-1); Hematocrit 37.2 % (40-54); Hemoglobin 11.7 g/dL (13.0-16.5); Lymphocyte # 0.77 X10^3/ul (4.0); Lymphocyte % 4.3 % (19-41); Mean Corp Hgb Conc 31.5 g/dL (32-36); Mean Corpuscular Hgb 27.7 pg (27.0-32.0); Mean Corpuscular Volume 88.2 fL (80-94); Mean Platelet Vol. 9.9 fl (6.2-12.0); Monocyte# 1.22 X10^3/uL; Monocyte% 6.8 % (0-10); NRBC Flagged by Analyzer 0 % (0-5); Neutrophil # 15.73 X10^3/uL (2.7-7.7); Platelet Count 272 K/mm3 (150-450); RBC Distribution Width CV 13.9 % (11.6-14.6); RBC Distribution Width SD 44.5 fl (35.1-43.9); Red Blood Count 4.22 M/mm3 (4.6-6.2); White Blood Count 17.9 K/mm3 (4.4-11.0)
[2019-01-30] MEDS: Insulin Basal Pump SC (18:59)
[2019-01-31 02:28] VITALS: BP 94/47; PULSE 80; RESP 16; TEMP 37.2; O2SAT 95
[2019-01-31] MEDS: 0.45% Normal Saline 1,000 ML 125 ML IV (05:24)
[2019-01-31] MEDS: Enoxaparin 40 MG/0.4 ML Syringe SC (05:25)
[2019-01-31] MEDS: Ketorolac 15 MG/ML Vial IV (05:25)
[2019-01-31 06:06] LABS: Hematocrit 33.7 % (40-54); Hemoglobin 10.8 g/dL (13.0-16.5); Mean Corpuscular Hgb 27.6 pg (27.0-32.0); Mean Corpuscular Volume 86.2 fL (80-94); Mean Platelet Vol. 10.3 fl (6.2-12.0); Platelet Count 281 K/mm3 (150-450); RBC Distribution Width CV 13.9 % (11.6-14.6); RBC Distribution Width SD 43.8 fl (35.1-43.9); Red Blood Count 3.91 M/mm3 (4.6-6.2); White Blood Count 11.6 K/mm3 (4.4-11.0)
[2019-01-31 06:35] LABS: Anion Gap 9 (5-15); BUN 19 mg/dL (7-18); BUN/Creat Ratio 19.4 RATIO (10-20); Calcium,Total 7.7 mg/dL (8.5-10.1); Chloride 106 mmol/L (98-107); Creatinine, Serum 0.98 mg/dL (0.70-1.30); EST Glomerular Filtration Rate 83 mL/min (>60); Est Glom Filt Rate - Afr Amer 100 mL/min (>60); Estimated Creatinine Clearance 76.58 ml/min; Glucose 174 mg/dL (74-106); Sodium Level 137 mmol/L (136-145)
--- NOTE | 2019-01-31 07:13 | PCM.PROGNOTE ---
Subjective: doing well, no issues overnight - Physical Exam Vitals/I&O's: Vital Signs Temp Pulse Resp BP Pulse Ox 98.9 F 80 16 94/47 L 95 01/31/19 02:28 01/31/19 02:28 01/31/19 02:28 01/31/19 02:28 01/31/19 02:28 Oxygen Delivery Method Room Air Weight: 75.1 kg Body Mass Index (BMI) 25.2 Finger Stick Blood Glucose 204 Intake and Output for Last 24 Hours 01/29/19 01/30/19 01/31/19 23:59 23:59 23:59 Intake Total 4586.67 / 4586.67 1000 / 1000 Output Total 650 / 650 350 / 350 Balance 3936.67 / 3936.67 650 / 650 General: Alert, Oriented x3, Cooperative HEENT: Atraumatic, PERRLA, EOMI, Normocephalic Neck: Supple, No JVD, Negative Carotid Bruits Lungs: Clear to auscultation, Normal air movement Cardiovascular: Regular rate, No murmurs Abdomen: Bowel Sounds Present, Soft, Non Tender Extremities: No edema, Capillary Refill Less than 3 Seconds Skin: No rashes, No breakdown Musculoskeletal: No Tenderness to Palpation of Joints or Extremities Neurological: Cranial nerves II-XII grossly intact Psych/Mental Status: Normal Affect, Appropriate Laboratory Results 01/30/19 11:32: POC Glucose 204 H 01/30/19 15:48: POC Glucose 257 H 01/30/19 18:30: WBC 17.9 H, RBC 4.22 L, Hgb 11.7 L, Hct 37.2 L, MCV 88.2, MCH 27.7, MCHC 31.5 L, RDW Std Deviation 44.5 H, RDW Coeff of [place] 13.9, Plt Count 272, MPV 9.9, Immature Gran % (Auto) 0.700, Neut % (Auto) 88.0 H, Lymph % (Auto) 4.3 L, Marshall % (Auto) 6.8, Eos % (Auto) 0.0, Baso % (Auto) 0.2, Absolute Neuts (auto) 15.7 H, Absolute Lymphs (auto) 0.77 L, Nucleated RBC % 0 01/31/19 05:05: WBC 11.6 H, RBC 3.91 L, Hgb 10.8 L, Hct 33.7 L, MCV 86.2, MCH 27.6, MCHC 32.0, RDW Std Deviation 43.8, RDW Coeff of [place] 13.9, Plt Count 281, MPV 10.3 01/31/19 05:05: Sodium 137, Potassium 4.0, Chloride 106, Carbon Dioxide 22.0, Anion Gap 9, BUN 19 H, Creatinine 0.98, Estim Creat Clear Calc 76.58, Est GFR (MDRD) Af Amer 100, Est GFR (MDRD) Non-Af 83, BUN/Creatinine Ratio 19.4, Glucose 174 H, Calcium 7.7 L Current Medications Acetaminophen (Tylenol) 500 mg PO Q4H PRN PRN PRN Reason: Pain Score 1-1010 /Headache Belladonna Alkaloids/Opium (B & O) 60 mg RECTAL Q6H PRN PRN PRN Reason: Spasm Ciprofloxacin HCl (Cipro) 500 mg PO BID [facility] Last Admin: 01/30/19 21:17 Dose: 500 mg Documented by: Docusate Sodium (Colace) 100 mg PO BID [facility] Last Admin: 01/30/19 21:17 Dose: 100 mg Documented by: Enoxaparin Sodium (Lovenox) 40 mg SC DAILY@0600 [facility] Last Admin: 01/31/19 05:25 Dose: 40 mg Documented by: Lactated Ringer's () 1,000 mls @ 100 mls/hr IV .Q10H [facility] Last Admin: 01/31/19 00:12 Dose: Not Given Documented by: Sodium Chloride () 1,000 mls @ 125 mls/hr IV .Q8H [facility] Last Admin: 01/31/19 05:24 Dose: 125 mls/hr Documented by: Sodium Chloride () 250 mls @ 15 mls/hr IV .[id number] PRN PRN Reason: Saline Flush Insulin Aspart (Pump, Basal) 0 unit SC DAILY [facility] Last Admin: 01/30/19 18:59 Dose: 1 units Documented by: Ketorolac Tromethamine (Toradol) 15 mg IV Q6 [facility] Stop: 02/04/19 12:01 Last Admin: 01/31/19 05:25 Dose: 15 mg Documented by: Magnesium Hydroxide (Milk Of Magnesia) 15 ml PO DAILY [facility] Last Admin: 01/30/19 17:45 Dose: 15 ml Documented by: Morphine Sulfate () 2 mg IV Q2H PRN PRN PRN Reason: Pain Score 6-10/10 Multivitamins (Multivitamin) 1 tablet PO DAILY@0800 [facility] Ondansetron HCl (Zofran) 4 mg IV Q6H PRN PRN PRN Reason: Nausea Oxycodone HCl (Oxyir) 5 mg PO Q4H PRN PRN PRN Reason: Pain Score 1-10/10 Pantoprazole Sodium (Protonix) 20 mg PO DAILY [facility] Last Admin: 01/30/19 15:49 Dose: 20 mg Documented by: Sodium Chloride () 10 - 40 ml IV UD PRN PRN Reason: SALINE FLUSH Last Admin: 01/30/19 17:52 Dose: 10 ml Documented by: Tolterodine Tartrate (Detrol La) 4 mg PO DAILY PRN PRN PRN Reason: Spasms Medical Necessity - Tobacco Use Smoking Status: Never smoker Tobacco Use: Non-smoker Assessment/Plan All Active Problems (Last Reviewed 04/17/18 @ 08:03 by Tiffany Carlos) Diabetes mellitus (Acute) Postoperative day #1 status post radical prostatectomy doing well plan increase his diet to regular diet today if he can tolerate solids he can go home and is ambulate the hallways he will have to go home with a catheter and I will see him in 10 days.
[2019-01-31 07:48] VITALS: O2SAT 96
[2019-01-31 08:35] VITALS: BP 109/54; PULSE 80; RESP 14; TEMP 37; O2SAT 96
[2019-01-31] MEDS: Docusate Sodium 100 MG Capsule PO (08:41)
[2019-01-31] MEDS: Ciprofloxacin 500 MG Tablet PO (08:41)
[2019-01-31] MEDS: Pantoprazole Sodium 20 MG Tablet PO (08:42)
[2019-01-31] MEDS: Multivitamins,Therapeutic Tablet 1 TABLET PO (08:42)
[2019-01-31] MEDS: Insulin Basal Pump SC (08:43)
[2019-01-31] MEDS: Magnesium Hydroxide 30 ML UDC 15 ML PO (08:48)
== END 2019-01-31 12:20 | disposition home or self-care (01) ==
LOC: SDC 05:53 → AC 05:53 → SDC 08:47 → MS3 11:43
PROVIDERS: Anesthesiology; Family Provider Internal Medicine; PCP Internal Medicine; Referring Provider Urology; Visit Provider Urology
PROC: 0VT04ZZ Resection of Prostate, Percutaneous Endoscopic Approach (ICD-10-PCS; CPT 55866; principal; 2019-01-30 07:10)
DX: C61 Malignant neoplasm of prostate (principal); R97.20 Elevated prostate specific antigen [PSA]; E10.9 Type 1 diabetes mellitus without complications; Z96.41 Presence of insulin pump (external) (internal); Z79.82 Long term (current) use of aspirin; Z79.4 Long term (current) use of insulin
CPT/HCPCS: 55866; 36415; 80048; 82962; 83036; 85025; 85027; 86850; 86900; 86901; 88304; 88305; 88309; 93005; 99251; J7030; J7120; A4216; G0463; J2405

== ENCOUNTER → 2019-03-15 | Outpatient (CLI) | payer BC, SELFPAY ==
[2019-01-30 13:09] VITALS: BMI 25.2
[2019-03-15 07:52] LABS: ALB/GLOB Ratio 0.9 RATIO (0.9-2.4); AST(SGOT) 23 U/L (15-37); Alanine Aminotransfer ALT/SGPT 34 U/L (16-61); Albumin, Serum 3.3 g/dL (3.2-5.0); Alkaline Phosphatase 63 U/L (45-117); Anion Gap 3 (5-15); BUN 20 mg/dL (7-18); Calcium,Total 8.7 mg/dL (8.5-10.1); Chloride 109 mmol/L (98-107); Cholesterol 187 mg/dL (200); Creatinine, Serum 0.95 mg/dL (0.70-1.30); EST Glomerular Filtration Rate 85 mL/min (>60); Est Glom Filt Rate - Afr Amer 103 mL/min (>60); Globulin 3.6 g/dL (2.2-4.2); Glucose 136 mg/dL (74-106); High Density Lipoprotein 44 mg/dL; Potassium 4.1 mmol/L (3.5-5.1); Protein, Total 6.9 g/dL (6.4-8.2); Sodium Level 138 mmol/L (136-145); Triglycerides 104 mg/dL; Very Low Density Lipoprotein 21 mg/dL (5-40)
[2019-03-15 08:13] LABS: Hemoglobin A1c 7.4 % (4.2-6.3)
== END | disposition home or self-care (01) ==
PROVIDERS: Family Provider Internal Medicine; PCP Internal Medicine
DX: E10.9 Type 1 diabetes mellitus without complications (principal)
CPT/HCPCS: 36415; 80053; 80061; 83036

== ENCOUNTER → 2019-04-30 15:36 | Outpatient (CLI) | payer BC, SELFPAY ==
[2019-01-30 13:09] VITALS: BMI 25.2
[2019-04-30 17:34] LABS: PSA,Total - Annual Screen 0.02 ng/mL (0.00-4.00)
== END ==
PROVIDERS: PCP Internal Medicine; Referring Provider Urology; Visit Provider Urology
DX: C61 Malignant neoplasm of prostate (principal)
CPT/HCPCS: 36415; 84153; G0103

== ENCOUNTER → 2019-09-12 06:02 | Outpatient (CLI) | payer BC, SELFPAY ==
[2019-01-30 13:09] VITALS: BMI 25.2
[2019-09-12 06:31] LABS: Absolute Lymphocyte Count 1.35 X10^3/uL (0.83-4.51); Absolute Neutrophil Count 3.9 X10^3/uL (2.0-7.7); Basophil# 0.07 X10^3/uL; Basophil% 1.2 % (0-1); Eosinophil# 0.07 X10^3/uL; Eosinophils% 1.2 % (0-5); Hematocrit 39.7 % (40-54); Hemoglobin 12.5 g/dL (13.0-16.5); Lymphocyte # 1.35 X10^3/ul (4.0); Lymphocyte % 22.4 % (19-41); Mean Corp Hgb Conc 31.5 g/dL (32-36); Mean Corpuscular Hgb 27.1 pg (27.0-32.0); Mean Corpuscular Volume 85.9 fL (80-94); Mean Platelet Vol. 9.7 fl (6.2-12.0); Monocyte# 0.66 X10^3/uL; NRBC Flagged by Analyzer 0 % (0-5); Neutrophil # 3.86 X10^3/uL (2.7-7.7); Platelet Count 280 K/mm3 (150-450); RBC Distribution Width SD 46.2 fl (35.1-43.9); Red Blood Count 4.62 M/mm3 (4.6-6.2)
[2019-09-12 06:54] LABS: Microalbumin,Random Urine 6.2 mg/L (NO RANGE EST.); Microalbumin:Creatinine Ratio 5.5 mg/g CRE (<30 mg/g CRE)
[2019-09-12 07:01] LABS: Hemoglobin A1c 6.9 % (3.8-5.6)
[2019-09-12 07:15] LABS: ALB/GLOB Ratio 0.9 RATIO (0.9-2.4); AST(SGOT) 19 U/L (15-37); Alanine Aminotransfer ALT/SGPT 29 U/L (16-61); Albumin, Serum 3.3 g/dL (3.2-5.0); Alkaline Phosphatase 51 U/L (45-117); Anion Gap 6 (5-15); BUN 16 mg/dL (7-18); BUN/Creat Ratio 19.4 RATIO (10-20); Calcium,Total 8.3 mg/dL (8.5-10.1); Chloride 107 mmol/L (98-107); Cholesterol 185 mg/dL (200); Creatinine, Serum 0.82 mg/dL (0.70-1.30); EST Glomerular Filtration Rate 101 mL/min (>60); Est Glom Filt Rate - Afr Amer 122 mL/min (>60); Ferritin 4 ng/mL (26-388); Globulin 3.6 g/dL (2.2-4.2); Glucose 63 mg/dL (74-106); High Density Lipoprotein 47 mg/dL; Iron 28 ug/dL (65-175); PSA,Total- Diagnostic < 0.01 ng/mL (0.0-4.0); Potassium 3.7 mmol/L (3.5-5.1); Protein, Total 6.9 g/dL (6.4-8.2); Sodium Level 141 mmol/L (136-145); T4 Free Direct 0.93 ng/dL (0.76-1.46); Thyroid Stim Hormone (TSH) 1.42 uIU/mL (0.358-3.74); Triglycerides 86 mg/dL; Very Low Density Lipoprotein 17 mg/dL (5-40)
[2019-09-15 14:29] LABS: Vitamin A, Retinol 59.9 ug/dL (22.0-69.5); Zinc, Plasma or Serum 58 ug/dL (56-134)
== END ==
PROVIDERS: PCP Internal Medicine
DX: E10.9 Type 1 diabetes mellitus without complications (principal); K13.0 Diseases of lips; B00.1 Herpesviral vesicular dermatitis; C61 Malignant neoplasm of prostate
CPT/HCPCS: 36415; 80053; 80061; 82043; 82570; 82728; 83036; 83540; 84153; 84439; 84443; 84590; 84630; 85025

== ENCOUNTER → 2019-11-15 15:18 | Outpatient (CLI) | payer BC, SELFPAY ==
[2019-01-30 13:09] VITALS: BMI 25.2
[2019-11-15 15:43] LABS: Absolute Lymphocyte Count 1.31 X10^3/uL (0.83-4.51); Absolute Neutrophil Count 4.3 X10^3/uL (2.0-7.7); Basophil# 0.05 X10^3/uL; Basophil% 0.8 % (0-1); Eosinophil# 0.07 X10^3/uL; Eosinophils% 1.1 % (0-5); Hematocrit 39.9 % (40-54); Hemoglobin 12.7 g/dL (13.0-16.5); Lymphocyte # 1.31 X10^3/ul (4.0); Lymphocyte % 20.3 % (19-41); Mean Corp Hgb Conc 31.8 g/dL (32-36); Mean Corpuscular Hgb 27.1 pg (27.0-32.0); Mean Corpuscular Volume 85.3 fL (80-94); Mean Platelet Vol. 9.7 fl (6.2-12.0); Monocyte# 0.67 X10^3/uL; Monocyte% 10.4 % (0-10); NRBC Flagged by Analyzer 0 % (0-5); Neutrophil # 4.32 X10^3/uL (2.7-7.7); Neutrophil % 67.1 % (47-70); Platelet Count 330 K/mm3 (150-450); RBC Distribution Width SD 43.2 fl (35.1-43.9); Red Blood Count 4.68 M/mm3 (4.6-6.2); White Blood Count 6.4 K/mm3 (4.4-11.0)
[2019-11-15 16:22] LABS: Ferritin 7 ng/mL (26-388); Iron Binding Capacity,Total 302 ug/dL (250-450)
== END ==
PROVIDERS: PCP Internal Medicine; Referring Provider Internal Medicine; Visit Provider Internal Medicine
DX: E61.1 Iron deficiency (principal)
CPT/HCPCS: 36415; 82728; 83550; 85025

== ENCOUNTER → 2020-03-20 05:57 | Outpatient (CLI) | payer BC, SELFPAY ==
[2019-01-30 13:09] VITALS: BMI 25.2
[2020-03-20 07:59] LABS: AST(SGOT) 24 U/L (15-37); Alanine Aminotransfer ALT/SGPT 31 U/L (16-61); Albumin, Serum 3.3 g/dL (3.2-5.0); Alkaline Phosphatase 55 U/L (45-117); Anion Gap 2 (5-15); BUN 16 mg/dL (7-18); BUN/Creat Ratio 16.8 RATIO (10-20); Calcium,Total 8.6 mg/dL (8.5-10.1); Chloride 110 mmol/L (98-107); Creatinine, Serum 0.95 mg/dL (0.70-1.30); EST Glomerular Filtration Rate 85 mL/min (>60); Est Glom Filt Rate - Afr Amer 103 mL/min (>60); Globulin 3.3 g/dL (2.2-4.2); Glucose 141 mg/dL (74-106); Potassium 4.1 mmol/L (3.5-5.1); Protein, Total 6.6 g/dL (6.4-8.2); Sodium Level 139 mmol/L (136-145)
== END ==
PROVIDERS: PCP Internal Medicine
DX: E10.9 Type 1 diabetes mellitus without complications (principal)
CPT/HCPCS: 36415; 80053; 83036

== ENCOUNTER → 2020-09-10 05:55 | Outpatient (CLI) | payer OTHER, SELFPAY ==
[2019-01-30 13:09] VITALS: BMI 25.2
[2020-09-10 07:35] LABS: Absolute Lymphocyte Count 1.43 X10^3/uL (0.83-4.51); Absolute Neutrophil Count 4.7 X10^3/uL (2.0-7.7); Basophil# 0.06 X10^3/uL; Basophil% 0.8 % (0-1); Eosinophil# 0.18 X10^3/uL; Eosinophils% 2.5 % (0-5); Hematocrit 45.9 % (40-54); Hemoglobin 15.5 g/dL (13.0-16.5); Lymphocyte # 1.43 X10^3/ul (0.83-4.51); Lymphocyte % 19.9 % (19-41); Mean Corp Hgb Conc 33.8 g/dL (32-36); Mean Corpuscular Hgb 30.9 pg (27.0-32.0); Mean Corpuscular Volume 91.6 fL (80-94); Mean Platelet Vol. 10.1 fl (6.2-12.0); Monocyte% 11.2 % (0-10); NRBC Flagged by Analyzer 0 % (0-5); Neutrophil # 4.68 X10^3/uL (2.7-7.7); Neutrophil % 65.3 % (47-70); Platelet Count 292 K/mm3 (150-450); RBC Distribution Width CV 12.6 % (11.6-14.6); RBC Distribution Width SD 42.3 fl (35.1-43.9); Red Blood Count 5.01 M/mm3 (4.6-6.2); White Blood Count 7.2 K/mm3 (4.4-11.0)
[2020-09-10 08:04] LABS: Microalbumin,Random Urine < 5.0 mg/L (NO RANGE EST.)
[2020-09-10 08:13] LABS: AST(SGOT) 26 U/L (15-37); Alanine Aminotransfer ALT/SGPT 34 U/L (16-61); Albumin, Serum 3.2 g/dL (3.2-5.0); Alkaline Phosphatase 59 U/L (45-117); Anion Gap 6 (5-15); BUN 17 mg/dL (7-18); BUN/Creat Ratio 21.3 RATIO (10-20); Calcium,Total 8.7 mg/dL (8.5-10.1); Chloride 106 mmol/L (98-107); Cholesterol 198 mg/dL (200); EST Glomerular Filtration Rate 104 mL/min (>60); Est Glom Filt Rate - Afr Amer 126 mL/min (>60); Globulin 3.2 g/dL (2.2-4.2); Glucose 132 mg/dL (74-106); High Density Lipoprotein 44 mg/dL; Potassium 4.1 mmol/L (3.5-5.1); Protein, Total 6.4 g/dL (6.4-8.2); Sodium Level 139 mmol/L (136-145); T4 Free Direct 0.94 ng/dL (0.76-1.46); Thyroid Stim Hormone (TSH) 1.64 uIU/mL (0.358-3.74); Triglycerides 131 mg/dL; Very Low Density Lipoprotein 26 mg/dL (5-40)
[2020-09-10 08:35] LABS: Hemoglobin A1c 6.3 % (3.8-5.6)
== END ==
PROVIDERS: PCP Internal Medicine
DX: E10.9 Type 1 diabetes mellitus without complications (principal)
CPT/HCPCS: 36415; 80053; 80061; 82043; 82570; 83036; 84439; 84443; 85025

== ENCOUNTER → 2021-03-16 06:03 | Outpatient (CLI) | payer OTHER, SELFPAY ==
[2021-03-16 08:08] LABS: ALB/GLOB Ratio 0.9 RATIO (0.9-2.4); AST(SGOT) 23 U/L (15-37); Alanine Aminotransfer ALT/SGPT 35 U/L (16-61); Alkaline Phosphatase 52 U/L (45-117); Anion Gap 5 (5-15); BUN 16 mg/dL (7-18); BUN/Creat Ratio 17.6 RATIO (10-20); Calcium,Total 8.5 mg/dL (8.5-10.1); Chloride 106 mmol/L (98-107); Creatinine, Serum 0.91 mg/dL (0.70-1.30); EST Glomerular Filtration Rate 90 mL/min (>60); Est Glom Filt Rate - Afr Amer 108 mL/min (>60); Globulin 3.4 g/dL (2.2-4.2); Glucose 115 mg/dL (74-106); Potassium 4.3 mmol/L (3.5-5.1); Protein, Total 6.4 g/dL (6.4-8.2); Sodium Level 141 mmol/L (136-145)
[2021-03-16 08:14] LABS: Hemoglobin A1c 6.2 % (3.8-5.6)
== END ==
PROVIDERS: PCP Internal Medicine
DX: E10.9 Type 1 diabetes mellitus without complications (principal)
CPT/HCPCS: 36415; 80053; 83036

== ENCOUNTER 2021-04-30 12:06 | Outpatient (CLI) | payer OTHER, SELFPAY ==
[2021-04-30 12:53] LABS: PSA,Total- Diagnostic 0.02 ng/mL (0.0-4.0)
== END 2021-04-30 23:59 | disposition home or self-care (01) ==
PROVIDERS: PCP Internal Medicine; Referring Provider Urology; Visit Provider Urology
DX: C61 Malignant neoplasm of prostate (principal)
CPT/HCPCS: 36415; 84153

== ENCOUNTER → 2021-11-16 | Outpatient (CLI) | payer OTHER, SELFPAY ==
[2021-11-16 07:54] LABS: Microalbumin,Random Urine < 5.0 mg/L (NO RANGE EST.)
[2021-11-16 07:59] LABS: ALB/GLOB Ratio 0.9 RATIO (0.9-2.4); AST(SGOT) 19 U/L (15-37); Alanine Aminotransfer ALT/SGPT 31 U/L (16-61); Alkaline Phosphatase 55 U/L (45-117); Anion Gap 6 (5-15); BUN 21 mg/dL (7-18); BUN/Creat Ratio 23.4 RATIO (10-20); Calcium,Total 8.3 mg/dL (8.5-10.1); Chloride 107 mmol/L (98-107); Cholesterol 176 mg/dL (200); EST Glomerular Filtration Rate 90 mL/min (>60); Est Glom Filt Rate - Afr Amer 109 mL/min (>60); Ferritin 77 ng/mL (26-388); Globulin 3.5 g/dL (2.2-4.2); Glucose 148 mg/dL (74-106); High Density Lipoprotein 43 mg/dL; Iron 59 ug/dL (65-175); Potassium 4.7 mmol/L (3.5-5.1); Protein, Total 6.5 g/dL (6.4-8.2); Sodium Level 140 mmol/L (136-145); Thyroid Stim Hormone (TSH) 1.67 uIU/mL (0.358-3.74); Triglycerides 127 mg/dL; Very Low Density Lipoprotein 25 mg/dL (5-40)
[2021-11-16 08:10] LABS: Vitamin D,25 Hydroxy 48.2 ng/mL
== END | disposition home or self-care (01) ==
PROVIDERS: PCP Internal Medicine; Referring Provider Nurse Practitioner Family; Visit Provider Nurse Practitioner Family
DX: E10.9 Type 1 diabetes mellitus without complications (principal); D64.9 Anemia, unspecified
CPT/HCPCS: 36415; 80053; 80061; 82043; 82306; 82570; 82728; 83540; 84443

== ENCOUNTER → 2022-05-12 | Outpatient (CLI) | payer SELFPAY ==
[2022-05-12 11:26] LABS: PSA,Total- Diagnostic < 0.01 ng/mL (0.0-4.0)
== END | disposition home or self-care (01) ==
PROVIDERS: PCP Internal Medicine; Visit Provider Urology
DX: C61 Malignant neoplasm of prostate (principal)
CPT/HCPCS: 36415; 84153

== ENCOUNTER → 2022-05-20 | Outpatient (CLI) | payer SELFPAY ==
--- NOTE | 2022-05-20 14:24 | CT_ITS ---
INDICATION: PROSTATE CA EXAMINATION: CT ABDOMEN AND PELVIS WITH AND WITHOUT CONTRAST - CT Abdomen And Pelvis WO/W Contrast Injection TECHNIQUE: Helically acquired images were obtained of the abdomen and pelvis following IV contrast. A radiation dose optimization technique was used for this scan. IV Contrast dosage and agent: 100 cc Isovue-300 Oral contrast: None. COMPARISON: None. FINDINGS: LOWER CHEST: Lung bases are clear. No cardiomegaly or pericardial effusion. LIVER: Homogeneous. 1.6 cm cyst in the liver. GALLBLADDER AND BILIARY TREE: No calcified gallstones. No gallbladder distension or wall edema. No intra- or extrahepatic biliary ductal dilation. PANCREAS: No focal cystic or solid mass. SPLEEN: Normal size without focal cystic or solid mass. ADRENAL GLANDS: No nodules. KIDNEYS AND URETERS: Normal renal size and position. No hydronephrosis. PERITONEUM: No ascites or free air. No other fluid collection. BOWEL: No evidence of acute appendicitis. Mild fluid distended small bowel suggesting an ileus. No focal inflammatory change. LYMPH NODES: No enlarged mesenteric or retroperitoneal lymph nodes. VESSELS: Aorta is calcified. URINARY BLADDER: Unremarkable. REPRODUCTIVE ORGANS: No pelvic masses. ABDOMINAL WALL: No discrete abdominal or pelvic wall hernia. BONES: No lytic or blastic abnormality. Spondylolysis of L5. CT/CT Abd/Pelvis W/WO Contrast IMPRESSION: Hepatic cysts. Small bowel ileus. No definite sign of obstruction. Electronically Signed: Abhilash Reeves DO at 16:41 EDT Reading Location ID and State: [facility] / [place] Tel [phone], Service support ,
[2022-05-20 15:11] LABS: CREATININE FINGERSTICK < 0.9 mg/dL (0.70-1.30); EGFR FINGERSTICK > 60.0000 mL/min (>60)
== END | disposition home or self-care (01) ==
LOC: CT 14:21
PROVIDERS: PCP Internal Medicine; Referring Provider Urology; Visit Provider Urology
DX: R31.0 Gross hematuria (principal); C61 Malignant neoplasm of prostate
CPT/HCPCS: 74178; Q9967

== ENCOUNTER → 2022-07-08 | Outpatient (CLI) | payer MEDICARE, OTHER, SELFPAY ==
[2022-07-08 08:01] LABS: Glucose 96 mg/dL (74-106)
[2022-07-09 13:07] LABS: C-Peptide < 0.1 ng/mL (1.1-4.4)
== END | disposition home or self-care (01) ==
LOC: LAB 05:59
PROVIDERS: PCP Internal Medicine; Referring Provider Nurse Practitioner Family; Visit Provider Nurse Practitioner Family
DX: E10.9 Type 1 diabetes mellitus without complications (principal)
CPT/HCPCS: 36415; 82947; 84681

== ENCOUNTER 2022-07-12 15:23 | Emergency (ER) | payer MEDICARE, OTHER, SELFPAY ==
[2022-07-12 15:24] VITALS: BP 140/78; PULSE 88; RESP 18; TEMP 36; O2SAT 98; BMI 23.6
[2022-07-12 15:34] VITALS: TEMP 36; O2SAT 98
--- NOTE | 2022-07-12 15:49 | EDS_ITS ---
HPI History of Present Illness Chief Complaint: Trauma Narrative Narrative: 67-year-old male presenting with laceration to the right leg. He states he was working in an attic and ceiling. He did not fall to the ground. He is able to catch himself. He sustained a V-shaped laceration on the right tibial region midway. Last tetanus unknown. Patient was able to get bleeding under control. He states his pain is 2-3 out of 10. He is able to ambulate into the ER. [facility] Medical History Diabetes type 1, uncontrolled Mixed hyperlipidemia Prostate cancer Home Medications aspirin 325 mg tablet 325 mg PO QDAY 04/27/17 [History Last Taken 01/17/19] multivitamin 1 ea PO DAILY supplement 01/22/19 [History Last Taken Unknown] docusate sodium 100 mg capsule 100 mg PO BID #20 caps 01/30/19 [Rx Last Taken Unknown] cholecalciferol (vitamin D3) 50 mcg (2,000 unit) capsule 50 mcg PO DAILY 11/22/21 [History Last Taken Unknown] insulin lispro 100 unit/mL subcutaneous solution (Humalog U-100 Insulin) 100 unit continuous subcutaneous infusion .continuous #90 mL 11/24/21 [Rx Last Taken Unknown] Easy Touch Lancets 30 gauge (lancets) #100 ea 06/15/22 [Rx Last Taken Unknown] blood sugar diagnostic (True Metrix Glucose Test Strip) #100 ea 06/15/22 [Rx Last Taken Unknown] blood-glucose meter (True Metrix Glucose Meter) #1 ea 06/15/22 [Rx Last Taken Unknown] cephalexin 500 mg capsule 500 mg PO Q12 #14 CAPSULES 07/12/22 [Rx Last Taken Unknown] Allergy/AdvReac Type Severity Reaction Status Date / Time enalaprilat [From Vasotec] Allergy Severe Unknown Verified 07/12/22 15:33 lovastatin Allergy Severe Unknown Verified 07/12/22 15:33 niacin Allergy Severe Unknown Verified 07/12/22 15:33 pravastatin [From Pravachol] Allergy Severe Unknown Verified 07/12/22 15:33 ramipril [From Altace] Allergy Severe Unknown Verified 07/12/22 15:33 rosuvastatin [From Crestor] Allergy Severe Unknown Verified 07/12/22 15:33 simvastatin [From Zocor] Allergy Severe Unknown Verified 07/12/22 15:33 hydrocodone AdvReac Nausea/Vom/ Verified 07/12/22 15:33 Diarrhea Family History Daughter Diabetes Other Kidney disease Surgical History H/O prostatectomy Social History Smoking Status: Never smoker second hand exposure: No alcohol intake: never substance use type: does not use ROS ROS ED Constitutional Constitutional ED: Denies chills, fever(s) or sweats Eyes Eyes: Denies blurry vision or change in vision ENT ENT ED: Denies ear pain or sore throat Cardiovascular Cardiovascular: Denies chest pain, palpitations or racing heartbeat Respiratory/Chest Respiratory/Chest: Denies cough, dyspnea or sputum Gastrointestinal Gastrointestinal: Denies abdominal pain, constipation, diarrhea, nausea or vomiting Genitourinary Genitourinary ED: Denies dysuria, hematuria or urinary frequency Musculoskeletal Musculoskeletal: Denies arthralgias, myalgias or neck pain Integumentary Reports other Details: Laceration right tibia ; Denies abscess or Abrasions Neurologic Neurologic: Denies headache(s), paresthesias or weakness Psychiatric Psychiatric: Denies anxiety, depression, suicidal ideation or suicidal thoughts Endocrine Endocrinology: Denies polydipsia or polyuria EXAM Physical Exam Const Vital Signs: 07/12/22 15:24 07/12/22 15:34 07/12/22 15:24 Temperature 96.8 F L 96.8 F L 96.8 F L Temperature Source Temporal Temporal Pulse Rate 88 88 Respiratory Rate 18 18 Respiratory Effort Normal Non-Labored Respiratory Depth Normal Respiratory Pattern Normal Blood Pressure 140/78 H 140/78 H Blood Pressure Mean 98 98 Pulse Ox 98 98 98 Oxygen Delivery Method Room Air Room Air Room Air 07/12/22 19:25 07/12/22 20:14 Temperature Temperature Source Pulse Rate Respiratory Rate 18 18 Respiratory Effort Respiratory Depth Respiratory Pattern Blood Pressure Blood Pressure Mean Pulse Ox Oxygen Delivery Method Room Air Positive well nourished General Appearance ED: NAD HEENT normocephalic and atraumatic Resp normal respiratory effort Cardio regular rate and regular rhythm Extremity Extremity Narrative: V-shaped laceration mid tibia. Each side is 7 cm in length and linear. There is no tendon involvement. There appears to be no foreign bodies. Bleeding is controlled. Mildly tender to palpation Neuro oriented x3 and CN's II-XII intact bilaterally Sensorium / Orientation: alert Motor Exam: strength 5/5 throughout Psych mental status grossly normal Skin Skin Narrative: As described above MDM MDM MDM Narrative Medical decision making narrative: Patient presenting with 14 cm laceration on the right tibia and a V-shape. Bleeding is well controlled. Last tetanus unknown so I updated it today. Patient requested ibuprofen for pain. I do not believe he needs any imaging is ambulatory. The wound was probed and I do not see any foreign bodies. There is no active bleeding. Does not appear any tendon involvement. The wound was cleaned with Shur-Clens. The wound was anesthetized using 12 cc of lidocaine with epinephrine with good anesthesia achieved. Wound was irrigated with 500 cc of sterile saline. Once 3-0 Ethilon suture was used at the apex of the laceration to approximate. After this three 3-0 Ethilon sutures were used in horizontal mattress suture to approximate the wound margins on each side. One 3-0 Ethilon suture was used on the right upper aspect of the laceration for better closure. Good approximation was achieved. A total of 7 sutures were placed. Patient tolerated procedure well. Patient will be started on Keflex to ensure he does not get infection as he is diabetic and the wound is below the waist. First dose was given in the ER. He is counseled on wound care and follow-up. He is counseled to be cautious walking is not serious sutures. He acknowledged understanding. Return precautions discussed. Impression: 1. 14 cm right leg laceration Discharge Plan Triage Chief Complaint: Trauma ED Provider: Ernesto Montana Dx/Rx/DC Orders Instructions: ED Laceration Extremity Prescriptions: New cephalexin 500 mg capsule 500 mg PO Q12 Qty: 14 0RF No Action aspirin 325 mg tablet 325 mg PO QDAY Rx Instructions: will stop 7 days prior cholecalciferol (vitamin D3) 50 mcg (2,000 unit) capsule 50 mcg PO DAILY multivitamin 1 EACH tablet 1 ea PO DAILY docusate sodium 100 MG capsule 100 mg PO BID Qty: 20 0RF insulin lispro [Humalog U-100 Insulin] 100 unit/mL solution 100 unit continuous subcutaneous infusion .continuous Qty: 90 1RF (DME) blood-glucose meter [True Metrix Glucose Meter] Misc See Rx Instructions .Route Qty: 1 0RF Rx Instructions: As directed (DME) True Metrix Glucose Test Strip Strip See Rx Instructions .Route Qty: 100 10RF Rx Instructions: 4x/day (DME) lancets [Easy Touch Lancets] 30 gauge misc See Rx Instructions .Route Qty: 100 5RF Rx Instructions: 4x/day Primary Care Provider: Kaylan Fajardo Referrals: Kaylan Fajardo MD [Primary Care Provider] - Disposition Disposition: Home, Self Care Discharge Date/Time: 07/12/22 20:19
[2022-07-12] MEDS: Ibuprofen 600 MG Tablet PO (15:53)
[2022-07-12] MEDS: Diphth,Pertuss(Acell),Tet Vac 0.5 ML Vial IM (15:56)
[2022-07-12] MEDS: Lidocaine 1% /Epi 1:100 (20ml) 20 ML Vial INFILT (16:06)
--- NOTE | 2022-07-12 16:29 | CM.ED ---
Social Work Patient and reports they are unsure whether they have Advanced Directives, information given to patient regarding AD and scheduling an appointment. Kaur Barbosa [employer], [employer]
[2022-07-12 19:25] VITALS: RESP 18
[2022-07-12 20:14] VITALS: RESP 18
[2022-07-12] MEDS: Cephalexin 250 MG Capsule 500 MG PO (20:17)
== END 2022-07-12 20:19 | disposition home or self-care (01) ==
PROVIDERS: Emergency Provider Student in an Organized Health Care Education/Training Program; PCP Internal Medicine; Visit Provider Student in an Organized Health Care Education/Training Program
DX: S81.811A Laceration without foreign body, right lower leg, initial encounter (principal); Z23 Encounter for immunization; X58.XXXA Exposure to other specified factors, initial encounter
CPT/HCPCS: 12005; 90715; 96372; 99283

== ENCOUNTER → 2022-09-20 | Outpatient (CLI) | payer MEDICARE, OTHER, SELFPAY ==
[2022-09-20 06:39] LABS: Absolute Lymphocyte Count 1.61 X10^3/uL (0.83-4.51); Absolute Neutrophil Count 3.1 X10^3/uL (2.0-7.7); Basophil# 0.07 X10^3/uL; Basophil% 1.2 % (0-1); Eosinophil# 0.19 X10^3/uL; Eosinophils% 3.4 % (0-5); Hematocrit 47.5 % (40-54); Hemoglobin 16.1 g/dL (13.0-16.5); Lymphocyte # 1.61 X10^3/ul (0.83-4.51); Lymphocyte % 28.6 % (19-41); Mean Corp Hgb Conc 33.9 g/dL (32-36); Mean Corpuscular Hgb 31.9 pg (27.0-32.0); Mean Corpuscular Volume 94.2 fL (80-94); Monocyte# 0.61 X10^3/uL; Monocyte% 10.9 % (0-10); NRBC Flagged by Analyzer 0 % (0-5); Neutrophil # 3.12 X10^3/uL (2.7-7.7); Neutrophil % 55.5 % (47-70); Platelet Count 230 K/mm3 (150-450); RBC Distribution Width CV 12.4 % (11.6-14.6); RBC Distribution Width SD 42.6 fl (35.1-43.9); Red Blood Count 5.04 M/mm3 (4.6-6.2); White Blood Count 5.6 K/mm3 (4.4-11.0)
[2022-09-20 07:18] LABS: Cholesterol 173 mg/dL (200); Ferritin 149 ng/mL (26-388); High Density Lipoprotein 50 mg/dL; Iron 97 ug/dL (65-175); Iron Binding Capacity,Total 295 ug/dL (250-450); PERCENT IRON SATURATION 32.9 % (15.0-55.0); Triglycerides 76 mg/dL; Very Low Density Lipoprotein 15 mg/dL (5-40)
== END | disposition home or self-care (01) ==
LOC: LAB 05:56
PROVIDERS: PCP Internal Medicine; Referring Provider Internal Medicine; Visit Provider Internal Medicine
DX: D50.8 Other iron deficiency anemias (principal); E78.2 Mixed hyperlipidemia
CPT/HCPCS: 36415; 80061; 82728; 83540; 83550; 85025

== ENCOUNTER → 2022-12-26 | Outpatient (CLI) | payer MEDICARE, OTHER, SELFPAY ==
[2022-12-26 09:57] LABS: Microalbumin,Random Urine 6.4 mg/L (NO RANGE EST.); Microalbumin:Creatinine Ratio 30.4 mg/g CRE (<30 mg/g CRE)
[2022-12-26 10:13] LABS: AST(SGOT) 23 U/L (15-37); Alanine Aminotransfer ALT/SGPT 35 U/L (16-61); Albumin, Serum 3.4 g/dL (3.2-5.0); Alkaline Phosphatase 48 U/L (45-117); Anion Gap 3 (5-15); BUN 17 mg/dL (7-18); BUN/Creat Ratio 18.9 RATIO (10-20); Calcium,Total 9.7 mg/dL (8.5-10.1); Chloride 105 mmol/L (98-107); EST Glomerular Filtration Rate 90 mL/min (>60); Est Glom Filt Rate - Afr Amer 109 mL/min (>60); Globulin 3.4 g/dL (2.2-4.2); Glucose 136 mg/dL (74-106); Potassium 4.3 mmol/L (3.5-5.1); Protein, Total 6.8 g/dL (6.4-8.2); Sodium Level 138 mmol/L (136-145)
== END | disposition home or self-care (01) ==
LOC: LAB 09:12
PROVIDERS: PCP Internal Medicine; Referring Provider Nurse Practitioner Family; Visit Provider Nurse Practitioner Family
DX: E10.9 Type 1 diabetes mellitus without complications (principal)
CPT/HCPCS: 36415; 80053; 82043; 82570

== ENCOUNTER → 2023-10-09 | Outpatient (CLI) | payer MEDICARE, OTHER, SELFPAY ==
[2023-10-09 07:04] LABS: Absolute Lymphocyte Count 1.17 X10^3/uL (0.83-4.51); Absolute Neutrophil Count 3.1 X10^3/uL (2.0-7.7); Basophil# 0.04 X10^3/uL; Basophil% 0.8 % (0-1); Eosinophil# 0.13 X10^3/uL; Eosinophils% 2.6 % (0-5); Hematocrit 44.6 % (40-54); Hemoglobin 14.8 g/dL (13.0-16.5); Lymphocyte # 1.17 X10^3/ul (0.83-4.51); Lymphocyte % 23.3 % (19-41); Mean Corp Hgb Conc 33.2 g/dL (32-36); Mean Corpuscular Hgb 30.8 pg (27.0-32.0); Mean Corpuscular Volume 92.9 fL (80-94); Mean Platelet Vol. 10.3 fl (6.2-12.0); Monocyte# 0.53 X10^3/uL; Monocyte% 10.6 % (0-10); NRBC Flagged by Analyzer 0 % (0-5); Neutrophil # 3.14 X10^3/uL (2.7-7.7); Neutrophil % 62.5 % (47-70); Platelet Count 243 K/mm3 (150-450); RBC Distribution Width CV 12.3 % (11.6-14.6); RBC Distribution Width SD 42.3 fl (35.1-43.9)
[2023-10-09 07:41] LABS: Ferritin 298 ng/mL (26-388); Iron 95 ug/dL (65-175); Iron Binding Capacity,Total 236 ug/dL (250-450); PERCENT IRON SATURATION 40.3 % (15.0-55.0); PSA,Total- Diagnostic < 0.01 ng/mL (0.0-4.0)
[2023-10-09 07:48] LABS: AST(SGOT) 27 U/L (15-37); Alanine Aminotransfer ALT/SGPT 35 U/L (16-61); Albumin, Serum 3.1 g/dL (3.2-5.0); Alkaline Phosphatase 50 U/L (45-117); Anion Gap 6 (5-15); BUN 19 mg/dL (7-18); BUN/Creat Ratio 24.8 RATIO (10-20); Calcium,Total 8.4 mg/dL (8.5-10.1); Chloride 110 mmol/L (98-107); Cholesterol 156 mg/dL (200); Creatinine, Serum 0.76 mg/dL (0.70-1.30); EST Glomerular Filtration Rate 108 mL/min (>60); Est Glom Filt Rate - Afr Amer 131 mL/min (>60); Glucose 106 mg/dL (74-106); High Density Lipoprotein 51 mg/dL; Potassium 4.3 mmol/L (3.5-5.1); Protein, Total 6.1 g/dL (6.4-8.2); Sodium Level 142 mmol/L (136-145); Thyroid Stim Hormone (TSH) 1.32 uIU/mL (0.358-3.74); Triglycerides 72 mg/dL; Very Low Density Lipoprotein 14 mg/dL (5-40)
[2023-10-09 08:02] LABS: Vitamin D,25 Hydroxy 73.2 ng/mL
[2023-10-09 10:49] LABS: Microalbumin,Random Urine < 5.0 mg/L (NO RANGE EST.)
== END | disposition home or self-care (01) ==
LOC: LAB 06:03
PROVIDERS: PCP Internal Medicine; Referring Provider Nurse Practitioner Family; Visit Provider Nurse Practitioner Family
DX: E10.9 Type 1 diabetes mellitus without complications (principal); E55.9 Vitamin D deficiency, unspecified; Z86.2 Personal history of diseases of the blood and blood-forming organs and certain disorders involving the immune mechanism; Z85.46 Personal history of malignant neoplasm of prostate
CPT/HCPCS: 36415; 80053; 80061; 82043; 82306; 82570; 82728; 83540; 83550; 84153; 84443; 85025

== ENCOUNTER → 2024-10-10 | Outpatient (CLI) | payer MEDICARE, OTHER, SELFPAY ==
--- OUTSIDE RECORDS SUMMARY | 2024-10-10 06:19 | XMS RPT_ITS | CCD ---
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 Name Role Phone Zarrabi, Kaylan Unavailable Unavailable Zarrabi, Kaylan Unavailable Unavailable Zarrabi, Kaylan Unavailable Unavailable Zarrabi, Kaylan Unavailable Unavailable Zarrabi, Kaylan Primary Care Provider [phone] Zarrabi Kaylan Unavailable Unavailable Zarrabi, Kaylan Unavailable Unavailable Zarrabi, Kaylan Primary Care Provider Kaylan Fajardo MD Primary Care Provider Kaylan Fajardo MD Unavailable Unavailable Zarrabi, Kaylan Unavailable Unavailable KRUNAL WILSON Attending Unavailab le ZARRABI, KAYLAN Primary Care Unavailable KRUNAL WILSON Attending Unavailab le ZARRABI, KAYLAN Primary Care Unavailable ELIZABETH GLYNN Attending Unavailable ZARRABI, KAYLAN Primary Care Unavailable ELIZABETH GLYNN Attending Unavailable ZARRABI, KAYLAN Primary Care Unavailable KRUNAL WILSON Attending Unavailab le ZARRABI, KAYLAN Primary Care Unavailable KRUNAL WILSON Attending Unavailab le ZARRABI, KAYLAN Primary Care Unavailable ELIZABETH GLYNN Attending Unavailable ZARRABI, KAYLAN Primary Care Unavailable Dr. Kaylan Fajardo Primary Care Provider Dr. Kaylan Fajardo Referring Provider AJ Lopez Attending Provider Dr. Kaylan Fajardo Referring Provider [phone] AJ Lopez Attending Provider KAYLAN FAJARDO Attending Unavailable ZARRABI, KAYLAN Primary Care Unavailable ZARRABI, KAYLAN Attending Unavailable ZARRABI, KAYLAN Primary Care Unavailable ZARRABI, KAYLAN Attending Unavailable ZARRABI, KAYLAN Primary Care Unavailable Tana ERNST, Kaylan Primary Care Provider Kaylan Fajardo MD Unavailable Dr. Amelia Monique MD Primary Care Provider Dr. Amelia Monique MD Referring Provider John SEWELL-CCharis Attending Provider [phone] Dr. Kaylan Fajardo MD Referring Provider Dr. Amelia Monique MD Attending Provider Charis Lopez Attending Unavailable JohnCharis Referring Unavailable Tillatoba, Amelia Primary Care Unavailable Kayden, Amelia Referring Unavailable JohnCharis Attending Unavailable Kayden, Amelia Primary Care Unavailable Tillatoba, Amelia Referring Unavailable Charis Loepz Attending Unavailable Tillatoba, Amelia Primary Care Unavailable Kayden, Amelia Primary Care Unavailable Zarrabi, Kaylan Referring Unavailable Tillatoba, Amelia Attending Unavailable Tillatoba, Amelia Referring Unavailable Kayden, Amelia Primary Care Unavailable Charis Lopez Attending Unavailable Zarrabi, Kaylan Primary Care Unavailable Zarrabi, Kaylan Referring Unavailable Charis Lopez Attending Unavailable Allergies Allergy Classification Reported Allergen(s) Allergy Type Date of Onset Reaction(s) Facility Angiotensin Converting Enzyme (MEÑO) Inhibitors (4 sources) Ramipril Drug Allergy 9 [facility] HMG-CoA Reductase Inhibitors (statins) (8 sources) Lovastatin Drug Allergy 9 [facility] Niacin (2 sources) Niacin Drug Allergy 9 [facility] (1 source) No Known Medication Allergies; Translations: [No Known Medication Allergies] Propensity to adverse reactions to drug (disorder) [facility] Repository (12 sources) Enalapril; Translations: [ENALAPRIL MALEATE] Drug Allergy 6 Headache [facility] (20 sources) Lovastatin; Translations: [LOVASTATIN] Drug Allergy 6 Other, Unknown [facility] (20 sources) Niacin; Translations: [NIACIN] Drug Allergy 2 Other, Unknown [facility] (20 sources) Pravastatin; Translations: [PRAVASTATIN] Drug Allergy 6 Other, Unknown [facility] (20 sources) Ramipril; Translations: [RAMIPRIL] Drug Allergy 6 Other, Dizziness, Unknown [facility] (20 sources) rosuvastatin; Translations: [ROSUVASTATIN] Drug Allergy 6 Other, Unknown [facility] (20 sources) Simvastatin; Translations: [SIMVASTATIN] Drug Allergy 9 Other, Unknown [facility] (10 sources) Enalaprilat; Translations: [ENALAPRILAT] Drug Allergy 6 Other, Unknown [facility] (10 sources) HYDROcodone; Translations: [HYDROCODONE] Drug Allergy 9 Diarrhea, Unknown [facility] (1 source) Enalaprilat Drug Allergy 5 [facility] (1 source) HYDROcodone Drug Allergy 5 [facility] (1 source) Lovastatin Drug Allergy 5 [facility] (1 source) Niacin Drug Allergy 5 [facility] (1 source) Pravastatin Drug Allergy 5 [facility] (1 source) Ramipril Drug Allergy 5 [facility] (1 source) rosuvastatin Drug Allergy 5 [facility] (1 source) Simvastatin Drug Allergy 5 [facility] Rep[facility] Medications Current Medications Medication Drug Class(es) Dates Sig (Normalized) Sig (Original) ascorbic acid 250 mg oral tablet (1 source) Vitamin C Start: 05-04-2023 take 1 tablet by mouth once daily Ascorbic Acid (Vitamin C) 250 mg tablet Active 250 mg PO DAILY May 04, 2023 1:00am aspirin 325 mg oral tablet (20 sources) Platelet Aggregation Inhibitor, Nonsteroidal Anti-inflammatory Drug Start: 04-27-2017 Aspirin 325 mg tablet Active 325 mg PO daily April 27, 2017 1:00am will stop 7 days prior take 1 tablet by mouth once naveen y aspirin 325 MG tablet Take 325 mg by mouth daily . 0 Active Blood-Glucose Meter (True Metrix Glucose Meter) mis (5 sources) Start: 06-15-2022 Blood-Glucose Meter (True Metrix Glucose Meter) [facility] [place] 0 .Route 1 June 15, 2022 12:00am As directed cholecalciferol 0.05 mg oral capsule (8 sources) Vitamin D Start: 11-22-2021 take 1 capsule by mouth once daily Cholecalciferol (Vitamin D3) 50 mcg (2,000 unit) capsule Active 50 ug PO DAILY November 22, 2021 12:00am ezetimibe 10 mg oral tablet (17 sources) Dietary Cholesterol Absorption Inhibitor Start: 01-18-2023 End: 02-08-2024 take 1 tablet by mouth once daily Ezetimibe 10 mg tablet Active 10 mg PO DAILY February 08, 2024 12:37pm Start: 05-12-2021 End: 06-27-2022 take 1 tablet by mouth once daily Ezetimibe (Zetia) 10 mg tablet Discontinued 10 mg PO DAILY May 12, 2021 1:00am June 27, 2022 1:25pm Start: 08-16-2018 End: 03-23-2020 take 1 tablet by mouth once daily ezetimibe (ZETIA) 10 mg tablet Take 1 (one) tablet (10 mg total) by mouth daily . 90 tablet 3 11/01/2018 03/23/2020 Discontinued ferrous gluconate 324 mg oral tablet (5 sources) take 1 tablet by blair th twice daily ferrous gluconate 324 (38 Fe) mg tablet Take 1 tablet (38 mg of iron) by mouth twice a day. 0 Active take 1 tablet by mouth twice kriss ly ferrous gluconate (FERGON) 324 MG tablet Take 324 mg by mouth 2 (two) times a day . 0 Active ferrous sulfate 325 mg oral tablet (1 source) Start: 05-04-2023 take 1 tablet by mouth once daily Ferrous Sulfate 325 mg (65 mg iron) tablet Active 325 mg PO DAILY May 04, 2023 1:00am insulin lispro 100 unt/ml injectable solution (10 sources) Insulin Analog Start: 11-24-2021 insulin lispro (HumaLOG) 100 unit/mL injection 1 mL (100 Units). 0 11/24/2021 Active Start: 11-24-2021 End: 07-12-2023 Insulin Lispro (Humalog U-10 0 Insulin) 100 unit/mL solution Active 100 U continuous subcutaneous infusion .continuous July 12, 2023 4:36pm losartan potassium 50 mg oral tablet (6 sources) Angiotensin 2 Receptor Curt Start: 07-03-2023 End: 01-19-2024 take 1 tablet by mouth once daily Losartan 50 mg tablet Active 50 mg PO DAILY January 19, 2024 10:22am Start: 12-26-2022 End: 07-03-2023 take 1 tablet by mouth once daily Losartan 25 mg tablet Discontinued 25 mg PO DAILY May 04, 2023 9:56am July 03, 2023 9:37am magnesium oxide 400 mg oral tablet (1 source) Start: 01-17-2024 take 1 tablet by mouth every other day Magnesium Oxide 400 mg magnesium tablet Active 400 mg PO .QOD January 17, 2024 1:00am Multivitamin 1 EACH tablet (1 source) Start: 01-22-2019 Multivitamin 1 EACH tablet Active 1 NMA PO DAILY January 22, 2019 1:00am multivitamin Chew (11 sources) multivitamin Mitzi w Chew and Swallow 1 tablet daily . 0 Active Multivitamin preparation (7 sources) Start: 01-22-2019 Multivitamin Active 1 EACH PO DAILY January 22, 2019 1:00am multivitamin tablet,chewable (1 source) multivitamin tablet,chewable Chew 1 tablet once daily. 0 Active sildenafil 100 mg oral tablet (3 sources) Phosphodiesterase 5 Inhibitor sildenafil (Viagra) 100 mg tablet Take 1 tablet (100 mg) by mouth if needed. 0 Active Viagra TABS TAKE 1 TABLET DAILY 1 HOUR BEFORE NEEDED Refills: 0 Active tadalafil 20 mg oral tablet (1 source) Phosphodiesterase 5 Inhibitor Start: 06-19-2022 take 1 tablet by mouth once daily tadalafil 20 mg tablet Take 1 tablet (20 mg) by mouth once daily. as directed 0 06/19/2022 Active True Metrix Glucose Meter misc (1 source) Start: 06-15-2022 True Metrix Glucose Meter misc use as directed to test blood sugar 0 06/15/2022 Active Completed/Discontinued Medications Medication Drug Class(es) Dates Sig (Normalized) Sig (Original) acetaminophen 325 mg / HYDROcodone bitartrate 5 mg oral tablet (8 sources) Opioid Agonist Start: 01-30-2019 End: 02-20-2019 Hydrocodone-Acetami nophen 1 EACH tablet Discontinued 1 NMA PO EVERY 6 HOURS NEEDED as needed for Pain Score 4-10/10 14 January 30, 2019 February 03, 2019 1:00am February 20, 2019 1:08am Start: 01-30-2019 End: 02-20-2019 Hydrocodone-Acetaminophen Di scontinued 1 EACH PO EVERY 6 HOURS NEEDED 14 January 30, 2019 February 20, 2019 1:08am cephalexin 500 mg oral capsule (5 sources) Cephalosporin Antibacterial Start: 07-12-2022 End: 09-21-2022 take 1 capsule by mouth every twelve hours Cephalexin 500 mg capsule Discontinued 500 mg PO EVERY 12 HOURS July 12, 2022 12:00am September 21, 2022 10:13am ciprofloxacin 500 mg oral tablet (8 sources) Quinolone Antimicrobial Start: 01-30-2019 End: 11-22-2021 take 1 tablet by mouth twice daily Ciprofloxacin Hcl 500 MG tablet Discontinued 500 mg PO TWICE A DAY January 30, 2019 1:00am November 22, 2021 9:35am docusate sodium 100 mg oral capsule (9 sources) Start: 01-30-2019 End: 09-21-2022 take 1 capsule by mouth twice daily Docusate Sodium 100 MG capsule Discontinued 100 mg PO TWICE A DAY January 30, 2019 1:00am September 21, 2022 10:14am insulin aspart, human 100 unt/ml injectable solution (20 sources) Insulin Analog Start: 11-22-2021 End: 11-24-2021 Insulin Aspart U-100 (Novolog U-100 Insulin Aspart) 100 unit/mL solution Discontinued 100 U continuous subcutaneous infusion .continuous 90 November 22, 2021 12:00am November 24, 2021 1:05pm Start: 10-19-2020 insulin aspart U-100 (NovoLOG) 100 unit/mL injection Use via insulin pump approx 100 units daily. . 90 mL 3 10/19/2020 Active Start: 12-18-2018 End: 10-16-2020 insulin aspart U-100 (NovoLO G) 100 unit/mL injection Use via insulin pump approx 100 units daily. . 90 mL 3 03/23/2020 10/16/2020 Discontinued (Reorder) Start: 04-27-2017 End: 11-22-2021 Insulin Aspart U-100 (Novolo g U-100 Insulin Aspart) 100 unit/mL solution Discontinued 0 SC daily 90 October 17, 2017 10:00am November 22, 2021 9:56am uses up to 75U qd via pump SC QDAY Start: 06-24-2015 insulin aspart (NovoLOG) 100 unit/mL injection 100 Units. 0 06/24/2015 Active NovoLOG SOLN via insulin pump Refills: 0 Active 10 ML Vial insulin aspart U -100 (NovoLOG) 100 unit/mL injection Inject under the skin 3 (three) times a day before meals . 0 Active predniSONE 5 mg oral tablet (1 source) End: 05-15-2018 take 1 tablet by mouth once daily predniSONE (DELTASONE) 5 MG tablet Take 5 mg by mouth daily . 0 05/15/2018 Discontinued valACYclovir 500 mg oral tablet (2 sources) Herpesvirus Nucleoside Analog DNA Polymerase Inhibitor, Herpes Simplex Virus Nucleoside Analog DNA Polymerase Inhibitor, Herpes Zoster Virus Nucleoside Analog DNA Polymerase Inhibitor Start: 07-09-2019 take 1 tablet by mouth twice daily valACYclovir HCl - 500 MG Oral Tablet TAKE 1 TABLET TWICE DAILY. Quantity: 28 Refills: 5 Kaylan Fajardo MD Start : 09-Jul-2019 Active Problems Active Problems Problem Classification Problem Date Documented Da te Episodic/Chronic Cancer of prostate (6 sources) History of malignant neoplasm of prostate; Translations: [Personal history of malignant neoplasm of prostate] Onset: 05-18-2022 Episodic Deficiency and other anemia (11 sources) Anemia; Translations: [Anemia, unspecified] Onset: 11-22-2021 Resolved: 07-26-2022 09-13-2021 Episodic Diabetes mellitus with complications (4 sources) Type 1 diabetes mellitus with hyperglycemia; Translations: [Diabetes mellitus] Onset: 05-15-2018 05-15-2018 Chronic Diabetes mellitus without complication (20 sources) Type 1 diabetes mellitus without complication; Translations: [Type 1 diabetes mellitus] Onset: 06-10-2005 Resolved: 07-26-2022 08-16-2018 Chronic Diabetes mellitus without complication (16 sources) Insulin pump present; Translations: [Presence of insulin pump (external) (internal)] Onset: 10-15-2015 11-22-2021 Episodic Disorders of lipid metabolism (20 sources) Mixed hyperlipidemia; Translations: [Mixed hyperlipidemia] Onset: 05-12-2015 Resolved: 07-26-2022 08-16-2018 Chronic Essential hypertension (6 sources) Hypertensive disorder; Translations: [Essential (primary) hypertension] Onset: 07-17-2024 09-21-2022 Chronic Genitourinary symptoms and ill-defined conditions (6 sources) Nocturia; Translations: [Nocturia] Onset: 05-26-2022 07-25-2022 Episodic Immunizations and screening for infectious disease (2 sources) Encounter for immunization; Translations: [Encounter for immunization] Onset: 01-30-2023 Episodic Nutritional deficiencies (1 source) Vitamin D deficiency, unspecified; Translations: [Vitamin D deficiency, unspecified] Onset: 07-17-2024 Chronic Nutritional deficiencies (3 sources) Iron deficiency; Translations: [Iron deficiency anemia, unspecified] Onset: 07-26-2022 01-30-2023 Episodic Other circulatory disease (4 sources) Elevated blood-pressure reading without diagnosis of hypertension; Translations: [Elevated blood-pressure reading, without diagnosis of hypertension] Onset: 09-27-2022 Resolved: 09-27-2022 09-21-2022 Episodic Other circulatory disease (3 sources) Elevated blood-pressure reading, without diagnosis of hypertension; Translations: [Elevated blood pressure reading without diagnosis of hypertension] 09-21-2022 Episodic Other hematologic conditions (1 source) History of anemia; Translations: [Personal history of diseases of the blood and blood-forming organs and certain disorders involving the immune mechanism] 05-06-2024 Episodic Other male genital disorders (2 sources) Impotence of organic origin; Translations: [Impotence of organic origin] Chronic Other male genital disorders (1 source) Secondary erectile dysfunction; Translations: [Male erectile dysfunction, unspecified] Onset: 07-25-2022 07-25-2022 Chronic Other screening for suspected conditions (not mental disorders or infectious disease) (4 sources) Patient encounter status; Translations: [Screening for malignant neoplasms of prostate] Onset: 02-23-2016 01-30-2023 Episodic Residual codes; unclassified (1 source) Medication refused; Translations: [Immunization not carried out because of patient refusal] 05-06-2024 Episodic Past or Other Problems Problem Classification Problem Date Documented Da te Episodic/Chronic Cancer of prostate (1 source) Malignant tumor of prostate; Translations: [Malignant neoplasm of prostate] Onset: 02-09-2016 Resolved: 09-26-2022 09-26-2022 Chronic Deficiency and other anemia (2 sources) Other iron deficiency anemias; Translations: [Other iron deficiency anemias] Onset: 07-25-2022 Episodic Deficiency and other anemia (1 source) Iron deficiency anemia; Translations: [Iron deficiency anemia, unspecified] Onset: 07-25-2022 Resolved: 09-27-2022 09-27-2022 Episodic Diseases of mouth; excluding dental (3 sources) Cheilodynia; Translations: [Cheilitis] Onset: 07-25-2022 Resolved: 01-30-2023 01-30-2023 Episodic Malaise and fatigue (1 source) Fatigue; Translations: [Other fatigue] Onset: 07-25-2022 Resolved: 09-27-2022 09-27-2022 Episodic Other circulatory disease (2 sources) Low blood pressure; Translations: [Hypotension, unspecified] Onset: 07-26-2022 Resolved: 07-26-2022 07-26-2022 Episodic Other injuries and conditions due to external causes (2 sources) Personal history of other (healed) physical injury and trauma; Translations: [Personal history of other (healed) physical injury and trauma] Onset: 07-26-2022 Episodic Other lower respiratory disease (1 source) Cough; Translations: [Cough] Onset: 09-26-2022 Resolved: 09-27-2022 09-27-2022 Episodic Other skin disorders (2 sources) Other skin changes; Translations: [Other skin changes] Onset: 07-26-2022 Episodic Residual codes; unclassified (1 source) Other specified health status; Translations: [Statin intolerance] Episodic Residual codes; unclassified (1 source) History of clinical finding in subject; Translations: [Personal history of other specified diseases] Episodic Unclassified (1 source) History of clinical finding in subject; Translations: [History of elevated prostate specific antigen (PSA)] Unclassified (1 source) Patient encounter status; Translations: [History of Prostate cancer screening] Unclassified (1 source) Onset: 01-30-2023 01-30-2023 Viral infection (3 sources) Herpes labialis; Translations: [Herpes simplex without mention of complication] Onset: 07-25-2022 Resolved: 07-26-2022 3 Episodic NEGATED: Highlighted row has not occurred!Residual codes; unclassified (4 sources) Disease Episodic Results Test Name Value Interpretation Reference Range Facility Endocrinology Visit Reporton 07-17-2024 Endocrinology Visit Report [facility] [address] [place] [address] OFFICE VISIT Date of Service: 07/17/24 MR#: [id number] Acct: [id number] Name: GUTIERREZ LANGE Rep #: [id number] : 1955 Provider: AJ gaxiola Age/Sex: 69/M [place] [facility] [place]: [place] Intake Vital Signs 04/24/24 08:06 05/06/24 07:29 07/17/24 08:04 Height 5 ft 8 in 5 ft 8 in 5 ft 8 in Weight: 159 lb 159 lb 155 lb 8 oz BMI 24.1 24.1 23.6 BP 135/74 H 118/62 125/69 H Blood Pressure Location Lt brachial Rt brachial Rt brachial Position Sitting Sitting Sitting Respiration 16 Pulse 68 67 67 Pulse Source Monitor Monitor Monitor Temp 97.1 F L Temp Source Temporal Pulse Oximetry (%) 97 97 96 Oxygen Delivery Method room air room air room air Intake Visit Reasons: 3 M FU Chief Complaint: Diabetes Is patient in pain?: No Allergies enalaprilat (From Vasotec) Allergy (Severe, Verified 07/17/24 08:09) Unknown lovastatin Allergy (Severe, Verified 07/17/24 08:09) Unknown niacin Allergy (Severe, Verified 07/17/24 08:09) Unknown pravastatin (From Pravachol) Allergy (Severe, Verified 07/17/24 08:09) Unknown ramipril (From Altace) Allergy (Severe, Verified 07/17/24 08:09) Unknown rosuvastatin (From Crestor) Allergy (Severe, Verified 07/17/24 08:09) Unknown simvastatin (From Zocor) Allergy (Severe, Verified 07/17/24 08:09) Unknown hydrocodone Adverse Reaction (Verified 07/17/24 08:09) Nausea/Vom/Diarrhea Medications ???Medication ???Instructions ???Recorded ???Confirmed ???Type aspirin 325 mg tablet 325 mg PO QDAY 04/27/17 07/17/24 H istory multivitamin 1 ea PO DAILY supplement 01/22/19 07/17/24 History cholecalciferol (vitamin D3) 50 50 mcg PO DAILY 11/22/21 07/17/24 History mcg (2,000 unit) capsule blood-glucose meter (True Metrix #1 ea 06/15/22 07/17/24 Rx Glucose Meter) ascorbic acid (vitamin C) 250 mg 250 mg PO DAILY 05/04/23 07/17/24 History tablet ferrous sulfate 325 mg (65 mg 325 mg PO DAILY 05/04/23 07/17/24 History iron) tablet insulin lispro 100 unit/mL 100 unit continuous subcutaneous 0 07/12/23 07/17/24 Rx subcutaneous solution (Humalog infusion .continuous #90 mL U-100 Insulin) blood sugar diagnostic (True #100 ea 09/04/23 07/17/24 Rx Metrix Glucose Test Strip) magnesium oxide 400 mg PO .QOD 01/17/24 07/17/24 H istory losartan 50 mg tablet 50 mg PO DAILY #90 tabs 01/19/24 0 07/17/24 Rx ezetimibe 10 mg tablet 10 mg PO DAILY #90 tabs 02/08/24 0 07/17/24 Rx Have you fallen in the past year?: No PFSH Medical History Anemia Prostate cancer Mixed hyperlipidemia Diabetes type 1, uncontrolled Surgical History H/O prostatectomy Family History Daughter Diabetes Father Cancer prostate Mother Kidney disease Social History adopted: No household members: spouse housing: house number of children: 2 current occupational status: retired 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 A1C today is 6.1%, essentially unchanged from 04/24/24. He has lost 4 lbs since that time. Currently using Medtronic 780 insulin pump with Guardian CGM. CGM tracings downloaded and reviewed- he is having recurrent lows after correcting for high blood sugar. He is entering fake carbohydrates to address elevations. He treats elevations aggressively. He will have lows with increased activity. He denies any significant episode of hypoglycemia that has required assistance from others. BP controlled. Currently taking losartan 50 mg once daily. He is taking ezetimibe 10 mg once daily. Labs are up to date and unremarkable. Denies any acute concerns. ROS Const Constitutional: Positive for weight change (intentional loss); No fatigue ENT ENT: No dizziness/vertigo Cardio Cardiology: No chest pain at rest, chest pain with exertion, shortness of breath or palpitations Skin Skin: No wounds Endo Endocrine: Positive for weight change (intentional loss); No fatigue Exam Const General: cooperative, h (more content not included)... Normal [facility] Office Vis [place] 05-02-2024 Internal Medicine Office Visit [facility] [address] [place] [address] [place] [address] OFFICE VISIT Date of Service: 05/06/24 MR#: [id number] Acct: [id number] Name: GUTIERREZ LANEG Rep #: [id number] : 1955 Provider: Dr. Amelia parada MD Age/Sex: 68/M Location: [facility] [place] Status: Signed Intake Vital Signs 05/04/23 08:21 04/24/24 08:06 05/06/24 07:29 Height 5 ft 8 in 5 ft 8 in 5 ft 8 in Weight: 159 lb BMI 24.1 BP 118/62 Blood Pressure Location Rt brachial Position Sitting Respiration 16 Pulse 67 Pulse Source Monitor Temp 97.1 F L Temp Source Temporal Pulse Oximetry (%) 97 Oxygen Delivery Method room air Intake Visit Reasons: 1 Y FU Sliver Cutter Required: No Is patient in pain?: No Allergies enalaprilat (From Vasotec) Allergy (Severe, Verified 05/06/24 06:55) Unknown lovastatin Allergy (Severe, Verified 05/06/24 06:55) Unknown niacin Allergy (Severe, Verified 05/06/24 06:55) Unknown pravastatin (From Pravachol) Allergy (Severe, Verified 05/06/24 06:55) Unknown ramipril (From Altace) Allergy (Severe, Verified 05/06/24 06:55) Unknown rosuvastatin (From Crestor) Allergy (Severe, Verified 05/06/24 06:55) Unknown simvastatin (From Zocor) Allergy (Severe, Verified 05/06/24 06:55) Unknown hydrocodone Adverse Reaction (Verified 05/06/24 06:55) Nausea/Vom/Diarrhea Medications ???Medication ???Instructions ???Recorded ???Confirmed ???Type aspirin 325 mg tablet 325 mg PO QDAY 04/27/17 05/06/24 H istory multivitamin 1 ea PO DAILY supplement 01/22/19 05/06/24 History cholecalciferol (vitamin D3) 50 50 mcg PO DAILY 11/22/21 05/06/24 History mcg (2,000 unit) capsule blood-glucose meter (True Metrix #1 ea 06/15/22 05/06/24 Rx Glucose Meter) ascorbic acid (vitamin C) 250 mg 250 mg PO DAILY 05/04/23 05/06/24 History tablet ferrous sulfate 325 mg (65 mg 325 mg PO DAILY 05/04/23 05/06/24 History iron) tablet insulin lispro 100 unit/mL 100 unit continuous subcutaneous 0 07/12/23 05/06/24 Rx subcutaneous solution (Humalog infusion .continuous #90 mL U-100 Insulin) blood sugar diagnostic (True #100 ea 09/04/23 05/06/24 Rx Metrix Glucose Test Strip) magnesium oxide 400 mg PO .QOD 01/17/24 05/06/24 H istory losartan 50 mg tablet 50 mg PO DAILY #90 tabs 01/19/24 0 05/06/24 Rx ezetimibe 10 mg tablet 10 mg PO DAILY #90 tabs 02/08/24 0 05/06/24 Rx Have you fallen in the past year?: No Nurse's Note: Pt is not fasting. 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 He is up to date on his routine blood work and screening. He doesn't want any immunizations. He doesn't smoke and doesn't need any refills. He reports he is eating healthy and staying active. The patient was diagnosed with type 1 diabetes 53 years ago at the age of 15. He does check his sugars at home through his sensor. He reports his sugars are usually in normal range, mostly around the 120s. He is following with endocrinology and has an insulin pump in place. He does try to monitor his carbohydrate and sugar intake. He is up to date on his diabetic eye exam and doesn't see podiatry. He hasn't checked his blood pressure at home recently. He is taking his medication as prescribed without problems. He does still use more salt than he should. The patient is taking his cholesterol medication without problems. He has tried multiple statins in the past and didn't tolerate them. He has a history of prostate cancer s/p prostatectomy. He no longer follows with urology. He denies any urinary symptoms. He has no other questions or concerns at this time. Medications reviewed: Yes Gutierrez doesn't do any formal exercise, but stays active. They watch their diet for sodium, low fat, and low cholesterol most of (more content not included)... Normal [facility] Endocrinology Visit Reporton 04-24-2024 Endocrinology Visit Report [facility] [address] [place] [address] OFFICE VISIT Date of Service: 04/24/24 MR#: [id number] Acct: [id number] Name: GUTIERREZ LANGE Rep #: [id number] : 1955 Provider: AJ gaxiola Age/Sex: 68/M [place] [facility] [place]: [place]igned Intake Vital Signs 01/17/24 08:08 04/24/24 08:06 Height 5 ft 8 in 5 ft 8 in Weight: 164 lb 159 lb BMI 24.9 24.1 BP 141/73 H 135/74 H Blood Pressure Location Lt brachial Lt brachial Position Sitting Sitting Pulse 61 68 Pulse Source Monitor Monitor Pulse Oximetry (%) 98 97 Oxygen Delivery Method room air room air Intake Visit Reasons: 3 M FU Chief Complaint: Diabetes Sliver Cutter Required: No Accompanied by: Self Is patient in pain?: No Allergies enalaprilat (From Vasotec) Allergy (Severe, Verified 04/24/24 08:11) Unknown lovastatin Allergy (Severe, Verified 04/24/24 08:11) Unknown niacin Allergy (Severe, Verified 04/24/24 08:11) Unknown pravastatin (From Pravachol) Allergy (Severe, Verified 04/24/24 08:11) Unknown ramipril (From Altace) Allergy (Severe, Verified 04/24/24 08:11) Unknown rosuvastatin (From Crestor) Allergy (Severe, Verified 04/24/24 08:11) Unknown simvastatin (From Zocor) Allergy (Severe, Verified 04/24/24 08:11) Unknown hydrocodone Adverse Reaction (Verified 04/24/24 08:11) Nausea/Vom/Diarrhea Medications ???Medication ???Instructions ???Recorded ???Confirmed ???Type aspirin 325 mg tablet 325 mg PO QDAY 04/27/17 04/24/24 H istory multivitamin 1 ea PO DAILY supplement 01/22/19 04/24/24 History cholecalciferol (vitamin D3) 50 50 mcg PO DAILY 11/22/21 04/24/24 History mcg (2,000 unit) capsule blood-glucose meter (True Metrix #1 ea 06/15/22 04/24/24 Rx Glucose Meter) ascorbic acid (vitamin C) 250 mg 250 mg PO DAILY 05/04/23 04/24/24 History tablet ferrous sulfate 325 mg (65 mg 325 mg PO DAILY 05/04/23 04/24/24 History iron) tablet insulin lispro 100 unit/mL 100 unit continuous subcutaneous 0 07/12/23 04/24/24 Rx subcutaneous solution (Humalog infusion .continuous #90 mL U-100 Insulin) blood sugar diagnostic (True #100 ea 09/04/23 04/24/24 Rx Metrix Glucose Test Strip) magnesium oxide 400 mg PO .QOD 01/17/24 04/24/24 H istory losartan 50 mg tablet 50 mg PO DAILY #90 tabs 01/19/24 0 04/24/24 Rx ezetimibe 10 mg tablet 10 mg PO DAILY #90 tabs 02/08/24 0 04/24/24 Rx Have you fallen in the past year?: No PFSH Medical History Anemia Prostate cancer Mixed hyperlipidemia Diabetes type 1, uncontrolled Surgical History H/O prostatectomy Family History Daughter Diabetes Father Cancer prostate Mother Kidney disease Social History household members: spouse housing: house current occupational status: retired 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 A1C today is 6.0%, consistent with 01/17/24 at 6.1%. He has lost 5 lbs since that time. Currently using [employer] 780 g with Guardian 4 CGM. CareMax-Viz downloaded and reviewed- he is bolusing for carbs late causing significant elevation, he boluses to get blood sugars down, with automode, this is typically causing a low. He denies any significant episode of hypoglycemia that has required assistance from others. BP today is controlled. He is taking losartan 50 mg once daily. He is unable to tolerate statins, he takes ezetimibe 10 mg once daily. Hx of microalbuminuria. Labs are up to date. Denies any acute concerns. ROS Const Constitutional: No fatigue, weakness or weight change Cardio Cardiology: No chest pain at rest, chest pain with exertion or shortness of breath Musc Musculoskeletal: No numbness Neuro Neurology: No weakness or numbness Skin Skin: No wounds Endo Endocrine: No fatigue or weight change Exam Const General: cooperative, healthy appearing, comfortable and no acute distress Nutritional Appearance: average body habitus Orientation: alert, awake and oriented x3 HENMT Head: normal to inspection Ears: hearing grossly normal bilaterally Nose: external nose normal Face and sinus: normal facial exam (more content not included)... Normal [facility] - Hematology and Cell countsOrdered By: Charis Lopez on 04-24-2024 HbA1c (Bld) [Mass fraction] 6.0 % 4.2-6.3 [facility] Endocrinology Visit Reporton 01-17-2024 Endocrinology Visit Report [facility] [address] [place] [address] OFFICE VISIT Date of Service: 01/17/24 MR#: [id number] Acct: [id number] Name: GUTIERREZ LAGNE Rep #: [id number] : 1955 Provider: AJ gaxiola Age/Sex: 68/M [place] [facility] [place] Signed Intake Vital Signs 10/02/23 08:10 01/17/24 08:08 Height 5 ft 8 in 5 ft 8 in Weight: 162 lb 164 lb BMI 24.6 24.9 BP 123/72 H 141/73 H Blood Pressure Location Lt brachial Lt brachial Position Sitting Sitting Pulse 62 61 Pulse Source Monitor Monitor Pulse Oximetry (%) 98 98 Oxygen Delivery Method room air room air Intake Visit Reasons: 3 M FU Chief Complaint: Diabetes Sliver Cutter Required: No Accompanied by: Self Is patient in pain?: No Allergies enalaprilat (From Vasotec) Allergy (Severe, Verified 01/17/24 08:08) Unknown lovastatin Allergy (Severe, Verified 01/17/24 08:08) Unknown niacin Allergy (Severe, Verified 01/17/24 08:08) Unknown pravastatin (From Pravachol) Allergy (Severe, Verified 01/17/24 08:08) Unknown ramipril (From Altace) Allergy (Severe, Verified 01/17/24 08:08) Unknown rosuvastatin (From Crestor) Allergy (Severe, Verified 01/17/24 08:08) Unknown simvastatin (From Zocor) Allergy (Severe, Verified 01/17/24 08:08) Unknown hydrocodone Adverse Reaction (Verified 01/17/24 08:08) Nausea/Vom/Diarrhea Medications ???Medication ???Instructions ???Recorded ???Confirmed ???Type aspirin 325 mg tablet 325 mg PO QDAY 04/27/17 01/17/24 History multivitamin 1 ea PO DAILY supplement 01/22/19 01/17/24 History cholecalciferol (vitamin D3) 50 50 mcg PO DAILY 11/22/21 01/17/24 History mcg (2,000 unit) capsule blood-glucose meter (True Metrix #1 ea 06/15/22 01/17/24 Rx Glucose Meter) ascorbic acid (vitamin C) 250 mg 250 mg PO DAILY 05/04/23 01/17/24 History tablet ferrous sulfate 325 mg (65 mg 325 mg PO DAILY 05/04/23 01/17/24 History iron) tablet losartan 50 mg tablet 50 mg PO DAILY #90 tabs 07/03/23 01/17/24 Rx insulin lispro 100 unit/mL 100 unit continuous subcutaneous 07/12/23 01/17/24 Rx subcutaneous solution (Humalog infusion .continuous #90 mL U-100 Insulin) ezetimibe 10 mg tablet 10 mg PO DAILY #90 tabs 08/15/23 01/17/24 Rx blood sugar diagnostic (True #100 ea 09/04/23 01/17/24 Rx Metrix Glucose Test Strip) magnesium oxide 400 mg PO .QOD 01/17/24 01/17/24 History Have you fallen in the past year?: No PFSH Medical History Anemia Prostate cancer Mixed hyperlipidemia Diabetes type 1, uncontrolled Surgical History H/O prostatectomy Family History Daughter Diabetes Father Cancer prostate Mother Kidney disease Social History household members: spouse housing: house current occupational status: retired 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 A1C today is 6.1%, increased from 10/02/23 at 5.8%. He has gained 2 lbs. Currently using [employer] 780g with [employer] 4 CGM- he is pleased with system. CGM tracings reviewed- he is entering ghost carbs to address elevated blood sugars. This is causing rapid dropping of blood sugars. He denies any significant episode of hypoglycemia that has required assistance from others. BP initially 141/73, repeat manual 130/72. Currently taking losartan 50 mg once daily. Labs updated at his last appointment and were unremarkable. He is unable to tolerate statins. He takes ezetimibe 10 mg once daily. Denies any acute concerns. ROS Const Constitutional: No fatigue, weakness or weight change Cardio Cardiology: No chest pain at rest, chest pain with exertion or shortness of breath Musc Musculoskeletal: No numbness Neuro Neurology: No weakness or numbness Skin Skin: No wounds Endo Endocrine: No fatigue or weight change Exam Const General: cooperative, healthy appearing, comfortable and no acute distress Nutritional Appearance: average body habitus Orientation: alert, awake and oriented x3 HENMT Head: normal to inspection Ears: hearing grossly normal bilaterally Nose: external nose normal Face and sinus: normal facial exam Eyes General: appearan (more content not included)... Normal [facility] CBC W/Diff, Automatedon 08-0 Absolute Lymph 1.17 X10 3/uL Normal 0.83-4.51 [facility] Comment on above: Performed By: #### L 501.9940, L503.6030, L503.6550, L506.1000, L100.0100 #### [facility] [address] [place], [address] Absolute Neut 3.1 X10 3/uL Normal 2.0-7.7 [facility] Comment on above: Performed By: #### L 501.9940, L503.6030, L503.6550, L506.1000, L100.0100 #### [facility] [address] [place], [address] Basophils/100 WBC (Bld) 0.8 % Normal 0-1 [facility] Comment on above: Performed By: #### L 501.9940, L503.6030, L503.6550, L506.1000, L100.0100 #### [facility] [address] [place], [address] Eosinophils/100 WBC (Bld) 2.6 % Normal 0-5 [facility] Comment on above: Performed By: #### L 501.9940, L503.6030, L503.6550, L506.1000, L100.0100 #### [facility] [address] [place], [address] Erythrocyte distribution width (RBC) [Ratio] 12.3 % Normal 11.6-14.6 [facility] Comment on above: Performed By: #### L 501.9940, L503.6030, L503.6550, L506.1000, L100.0100 #### [facility] [address] [place], [address] Hematocrit (Bld) [Volume fraction] 44.6 % Normal 40-54 [facility] Comment on above: Performed By: #### L 501.9940, L503.6030, L503.6550, L506.1000, L100.0100 #### [facility] [address] [place], [address] Hemoglobin (Bld) [Mass/Vol] 14.8 g/dL Normal 13.0-16.5 [facility] Comment on above: Performed By: #### L 501.9940, L503.6030, L503.6550, L506.1000, L100.0100 #### [facility] [address] [place], [address] IG% 0.200 Normal 0.0-0.9 [facility] Comment on above: Result Comment: IG% - Immature Granulocytes (promyelocytes, myelocytes and metamyelocytes) > 1% indicates that a LEFT SHIFT is Present. Performed By: #### L 501.9940, L503.6030, L503.6550, L506.1000, L100.0100 #### [facility] [address] [place], [address] Lymphocytes/100 WBC (Bld) 23.3 % Normal 19-41 [facility] Comment on above: Performed By: #### L 501.9940, L503.6030, L503.6550, L506.1000, L100.0100 #### [facility] [address] [place], [address] MCH (RBC) [Entitic mass] 30.8 pg Normal 27.0-32.0 [facility] Comment on above: Performed By: #### L 501.9940, L503.6030, L503.6550, L506.1000, L100.0100 #### [facility] [address] [place], [address] MCHC (RBC) [Mass/Vol] 33.2 g/dL Normal 32-36 [facility] Comment on above: Performed By: #### L 501.9940, L503.6030, L503.6550, L506.1000, L100.0100 #### [facility] [address] [place], [address] MCV (RBC) [Entitic vol] 92.9 fL Normal 80-94 [facility] Comment on above: Performed By: #### L 501.9940, L503.6030, L503.6550, L506.1000, L100.0100 #### [facility] [address] [place], [address] Monocytes/100 WBC (Bld) 10.6 % High 0-10 [facility] Comment on above: Performed By: #### L 501.9940, L503.6030, L503.6550, L506.1000, L100.0100 #### [facility] [address] [place], [address] Neutrophils/100 WBC (Bld) 62.5 % Normal 47-70 [facility] Comment on above: Performed By: #### L 501.9940, L503.6030, L503.6550, L506.1000, L100.0100 #### [facility] [address] [place], [address] Nucleated RBC (Bld) [#/Vol] 0 10*3/uL Normal 0-5 [facility] Comment on above: Performed By: #### L 501.9940, L503.6030, L503.6550, L506.1000, L100.0100 #### [facility] [address] [place], [address] Platelet mean volume (Bld) [Entitic vol] 10.3 fL Normal 6.2-12.0 [facility] Comment on above: Performed By: #### L 501.9940, L503.6030, L503.6550, L506.1000, L100.0100 #### [facility] [address] [place], [address] Platelets (Bld) [#/Vol] 243 10*3/uL Normal 150-450 [facility] Comment on above: Performed By: #### L 501.9940, L503.6030, L503.6550, L506.1000, L100.0100 #### [facility] [address] [place], [address] RBC (Bld) [#/Vol] 4.80 10*6/uL Normal 4.6-6.2 [facility] Comment on above: Performed By: #### L 501.9940, L503.6030, L503.6550, L506.1000, L100.0100 #### [facility] [address] [place], [address] RDW SD 42.3 fl Normal 35.1-43.9 [facility] Comment on above: Performed By: #### L 501.9940, L503.6030, L503.6550, L506.1000, L100.0100 #### [facility] [address] [place], [address] WBC (Bld) [#/Vol] 5.0 10*3/uL Normal 4.4-11.0 [facility] Comment on above: Performed By: #### L 501.9940, L503.6030, L503.6550, L506.1000, L100.0100 #### [facility] [address] [place], [address] Comprehensive Metabolic Prof ilon 10-09-2023 Albumin [Mass/Vol] 3.1 g/dL Low 3.2-5.0 [facility] Comment on above: Performed By: #### L 500.4100, L502.0250, L500.4050, L501.9520 #### [facility] [address] [place], [address] Albumin/Globulin [Mass ratio] 1.0 {ratio} Normal 0.9-2.4 [facility] Comment on above: Performed By: #### L 500.4100, L502.0250, L500.4050, L501.9520 #### [facility] [address] [place], [address] ALK P 50 U/L Normal 45-117 [facility] Comment on above: Performed By: #### L 500.4100, L502.0250, L500.4050, L501.9520 #### [facility] [address] [place], [address] ALT [Catalytic activity/Vol] 35 U/L Normal 16-61 [facility] Comment on above: Performed By: #### L 500.4100, L502.0250, L500.4050, L501.9520 #### [facility] [address] [place], [address] AST [Catalytic activity/Vol] 27 U/L Normal 15-37 [facility] Comment on above: Performed By: #### L 500.4100, L502.0250, L500.4050, L501.9520 #### [facility] [address] [place], [address] Bilirubin [Mass/Vol] 0.50 mg/dL Normal 0.20-1.00 [facility] Comment on above: Result Comment: For patients on eltrombopag therapy, use of Dimension [place] TBIL is not recommended. Performed By: #### L 500.4100, L502.0250, L500.4050, L501.9520 #### [facility] [address] [place], [address] BUN/CRE 24.8 RATIO High 10-20 [facility] Comment on above: Performed By: #### L 500.4100, L502.0250, L500.4050, L501.9520 #### [facility] [address] [place], [address] CA,Total 8.4 mg/dL Low 8.5-10.1 [facility] Comment on above: Performed By: #### L 500.4100, L502.0250, L500.4050, L501.9520 #### [facility] [address] [place], [address] Chloride [Moles/Vol] 110 mmol/L High 98-107 [facility] Comment on above: Performed By: #### L 500.4100, L502.0250, L500.4050, L501.9520 #### [facility] [address] [place], [address] CO2 [Moles/Vol] 26.0 mmol/L Normal 21.0-32.0 [facility] Comment on above: Performed By: #### L 500.4100, L502.0250, L500.4050, L501.9520 #### [facility] [address] [place], [address] Creatinine [Mass/Vol] 0.76 mg/dL Normal 0.70-1.30 [facility] Comment on above: Result Comment: The validity of the calculated GFR GFRAA in patients over 70 years has not been determined. Clinical correlation is essential. Performed By: #### L 500.4100, L502.0250, L500.4050, L501.9520 #### [facility] [address] [place], [address] EST GFR - AA 131 mL/min Normal >60 [facility] Comment on above: Result Comment: Afri can Ecuadorean GFR Calc Performed By: #### L 500.4100, L502.0250, L500.4050, L501.9520 #### [facility] [address] [place], [address] GAP 6 Normal 5-15 [facility] Comment on above: Performed By: #### L 500.4100, L502.0250, L500.4050, L501.9520 #### [facility] [address] [place], [address] GFR/1.73 sq M.predicted among non-blacks MDRD (S/P/Bld) [Vol rate/Area] 108 mL/min/{1.73_m2} Normal >60 [facility] Comment on above: Result Comment: Non- GFR Calc Performed By: #### L 500.4100, L502.0250, L500.4050, L501.9520 #### [facility] [address] [place], [address] Globulin (S) [Mass/Vol] 3.0 g/dL Normal 2.2-4.2 [facility] Comment on above: Performed By: #### L 500.4100, L502.0250, L500.4050, L501.9520 #### [facility] [address] [place], [address] Glucose [Mass/Vol] 106 mg/dL Normal 74-106 [facility] Comment on above: Result Comment: Fast ing Glucose result from 100 to 125 mg/dL suggests IMPAIRED HOMEOSTASIS per A.D.A. criteria. Performed By: #### L 500.4100, L502.0250, L500.4050, L501.9520 #### [facility] [address] [place], [address] Potassium [Moles/Vol] 4.3 mmol/L Normal 3.5-5.1 [facility] Comment on above: Performed By: #### L 500.4100, L502.0250, L500.4050, L501.9520 #### [facility] [address] [place], [address] Sodium [Moles/Vol] 142 mmol/L Normal 136-145 [facility] Comment on above: Performed By: #### L 500.4100, L502.0250, L500.4050, L501.9520 #### [facility] [address] [place], [address] T PROT 6.1 g/dL Low 6.4-8.2 [facility] Comment on above: Performed By: #### L 500.4100, L502.0250, L500.4050, L501.9520 #### [facility] [address] [place], [address] Urea nitrogen [Mass/Vol] 19 mg/dL High 7-18 [facility] Comment on above: Performed By: #### L 500.4100, L502.0250, L500.4050, L501.9520 #### [facility] [address] [place], [address] Ferritinon 10-09-2023 Ferritin [Mass/Vol] 298 ng/mL Normal 26-388 [facility] Comment on above: Performed By: #### L 501.9940, L503.6030, L503.6550, L506.1000, L100.0100 ####[facility] [id number] [place], [address] Iron+Iron Binding Capacityon 10-09-2023 Iron [Mass/Vol] 95 ug/dL Normal 65-175 [facility] Comment on above: Performed By: #### L 501.9940, L503.6030, L503.6550, L506.1000, L100.0100 ####[facility] [address] [place], [address] IRON SATURATION 40.3 Normal 15.0-55.0 [facility] Comment on above: Performed By: #### L 501.9940, L503.6030, L503.6550, L506.1000, L100.0100 ####[facility] [id number] [place], [address] TIBC 236 ug/dL Low 250-450 [facility] Comment on above: Performed By: #### L 501.9940, L503.6030, L503.6550, L506.1000, L100.0100 ####[facility] [id number] [place], [address] Lipid Profileon 10-09-2023 Cholesterol [Mass/Vol] 156 mg/dL Normal 200 [facility] Comment on above: Result Comment: <200 mg/dL Desirable 200-240 mg/dL Borderline >240 mg/dL High Risk Performed By: #### L 500.4100, L502.0250, L500.4050, L501.9520 #### [facility] [address] [place], [address] Cholesterol in HDL [Mass/Vol] 51 mg/dL Normal [facility] Comment on above: Result Comment: The drugs N-Acetylcysteine and Metamizole may falsely depress this assay. Reference Range HDL <40 mg/dL Low HDL Cholesterol HDL >or= 60 mg/dL High HDL Cholesterol Performed By: #### L 500.4100, L502.0250, L500.4050, L501.9520 #### [facility] [address] [place], [address] Cholesterol in LDL [Mass/Vol] 91 mg/dL Normal 0-130 [facility] Comment on above: Performed By: #### L 500.4100, L502.0250, L500.4050, L501.9520 #### [facility] [address] [place], [address] Cholesterol in VLDL [Mass/Vol] 14 mg/dL Normal 5-40 [facility] Comment on above: Performed By: #### L 500.4100, L502.0250, L500.4050, L501.9520 #### [facility] [address] [place], [address] Triglyceride [Mass/Vol] 72 mg/dL Normal [facility] Comment on above: Result Comment: The drugs N-Acetylcysteine and Metamizole may falsely depress this assay. Serum Triglycerides Reference Interval Normal <150 mg/dL Borderline high 150 - 199 mg/dL High 200 - 499 mg/dL Very High > or = 500 mg/dL Performed By: #### L 500.4100, L502.0250, L500.4050, L501.9520 #### [facility] [address] [place], [address] Microalb:Creat Ratio,Random URon 10-09-2023 Creatinine [Mass/Vol] 85.30 mg/dL Normal NO RANGE EST. [facility] Comment on above: Performed By: #### L 500.4100, L502.0250, L500.4050, L501.9520 #### [facility] [address] [place], [address] MALB:CRE TNP Normal <30 mg/g CRE [facility] Comment on above: Performed By: #### L 500.4100, L502.0250, L500.4050, L501.9520 #### [facility] [address] [place], [address] MICROALBUMIN,UR < 5.0 Normal NO RANGE EST. [facility] Comment on above: Performed By: #### L 500.4100, L502.0250, L500.4050, L501.9520 #### [facility] [address] [place], [address] PSA,Total- Diagnosticon PSA, DIAGNOSTIC < 0.01 Normal 0.0-4.0 [facility] Comment on above: Result Comment: This test was performed using the TPSA assay method for the [employer] chemistry system. Values obtained with different assay methods cannot be used interchangably. When changing PSA assays in the course of monitoring a patient, additional sequential testing should be carried out to confirm baseline values. Performed By: #### L 501.9940, L503.6030, L503.6550, L506.1000, L100.0100 ####[facility] [id number] [place], [address] Thyroid Stim Hormone (TSH)on 10-09-2023 TSH 1.32 uIU/mL Normal 0.358-3.74 [facility] Comment on above: Performed By: #### L 500.4100, L502.0250, L500.4050, L501.9520 #### [facility] [address] [place], [address] Vitamin D,25 Hydroxyon 10-08 Vitamin D 25-OH 73.2 ng/mL Normal [facility] Comment on above: Result Comment: Tere min D 25(OH) Status Range Deficiency <20 ng/mL (50nmol/L) Insufficiency 20 - 30 ng/mL (50 - 75 nmol/L) Sufficiency 30 - 100 ng/mL (75 - 250 nmol/L) Toxicity >100 ng/mL (>250 nmol/L) Performed By: #### L 501.9940, L503.6030, L503.6550, L506.1000, L100.0100 ####[facility] [id number] [place], [address] Endocrinology Visit Reporton 10-02-2023 Endocrinology Visit Report [facility] [address] [place], [place] [address] OFFICE VISIT Date of Service: 10/02/23 MR#: [id number] Acct: [id number] Name: GUTIERREZ LANGE Rep #: [id number] : 1955 Provider: AJ gaxiola Age/Sex: 68/M [place] [facility] [place]: Signed Intake Vital Signs 07/03/23 09:08 10/02/23 08:10 Height 5 ft 8 in 5 ft 8 in Weight: 163 lb 162 lb BMI 24.7 24.6 BP 142/82 H 123/72 H Blood Pressure Location Rt brachial Lt brachial Position Sitting Sitting Respiration 16 Pulse 65 62 Pulse Source Monitor Monitor Temp 97.0 F L Temp Source Temporal Pulse Oximetry (%) 97 98 Oxygen Delivery Method room air room air Intake Visit Reasons: 3 M FU Chief Complaint: Diabetes Allergies enalaprilat (From Vasotec) Allergy (Severe, Verified 07/03/23 09:07) Unknown lovastatin Allergy (Severe, Verified 07/03/23 09:07) Unknown niacin Allergy (Severe, Verified 07/03/23 09:07) Unknown pravastatin (From Pravachol) Allergy (Severe, Verified 07/03/23 09:07) Unknown ramipril (From Altace) Allergy (Severe, Verified 07/03/23 09:07) Unknown rosuvastatin (From Crestor) Allergy (Severe, Verified 07/03/23 09:07) Unknown simvastatin (From Zocor) Allergy (Severe, Verified 07/03/23 09:07) Unknown hydrocodone Adverse Reaction (Verified 07/03/23 09:07) Nausea/Vom/Diarrhea Medications ???Medication ???Instructions ???Recorded ???Confirmed ???Type aspirin 325 mg tablet 325 mg PO QDAY 04/27/17 10/02/23 History multivitamin 1 ea PO DAILY supplement 01/22/19 10/02/23 History cholecalciferol (vitamin D3) 50 50 mcg PO DAILY 11/22/21 10/02/23 History mcg (2,000 unit) capsule blood-glucose meter (True Metrix #1 ea 06/15/22 10/02/23 Rx Glucose Meter) ascorbic acid (vitamin C) 250 mg 250 mg PO DAILY 05/04/23 10/02/23 History tablet ferrous sulfate 325 mg (65 mg 325 mg PO DAILY 05/04/23 10/02/23 History iron) tablet losartan 50 mg tablet 50 mg PO DAILY #90 tabs 07/03/23 10/02/23 Rx insulin lispro 100 unit/mL 100 unit continuous subcutaneous 07/12/23 10/02/23 Rx subcutaneous solution (Humalog infusion .continuous #90 mL U-100 Insulin) ezetimibe 10 mg tablet 10 mg PO DAILY #90 tabs 08/15/23 10/02/23 Rx blood sugar diagnostic (True #100 ea 09/04/23 10/02/23 Rx Metrix Glucose Test Strip) Have you fallen in the past year?: No PFSH Medical History Anemia Prostate cancer Mixed hyperlipidemia Diabetes type 1, uncontrolled Surgical History H/O prostatectomy Family History Daughter Diabetes Father Cancer prostate Mother Kidney disease Social History household members: spouse housing: house current occupational status: retired 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 A1C today is 5.8%, slightly improved from 07/03/23 at 5.9%. Weight is stable. Currently using [employer] 780g with Guardian 4 CGM- overall he is pleased with system. Carelink report downloaded and reviewed- he is doing well. Denies any significant episode of hypoglycemia that has required assistance from others. BP today is 123/72, improved from 07/03/23 at 142/82. Currently taking losartan 50 mg once daily. Hx of high cholesterol, unable to tolerate statins. Currently taking ezetimibe 10 mg once daily. He is due for labs. Denies any acute concerns. ROS Const Constitutional: Positive for other (ROS negative x10 body systems) Exam Const General: cooperative, healthy appearing, comfortable and no acute distress Nutritional Appearance: average body habitus Orientation: alert, awake and oriented x3 HENMT Head: normal to inspection Ears: hearing grossly normal bilaterally Nose: external nose normal Face and sinus: normal facial exam Eyes General: appearance normal, both eyes and all related structures Alignment and Position: alignment normal Sclera: sclerae normal Neck Neck: normal visual inspection Carotids: normal carotid upstroke Chest Chest palpation inspection: normal inspection of the chest Resp Effort Inspection: normal respiratory effort, able to speak in complete sentences, symmetric chest movement, (more content not included)... Normal [facility] Basophil percentageOrdered B y: Charis Lopez on 12-26-2022 Bilirubin [Mass/Vol] 0.40 mg/dL 0.20-1.00 [facility] Comment on above: For patients on eltr ombopag therapy, use of Dimension [place] TBIL is not recommended. Chloride [Moles/Vol] 105 mmol/L 98-107 [facility] Glucose [Mass/Vol] 136 mg/dL 74-106 [facility] Comment on above: Fasting Glucose resu lt greater than or equal to 126 mg/dL suggests DIABETES MELLITUS per A.D.A. criteria. Potassium [Moles/Vol] 4.3 mmol/L 3.5-5.1 [facility] Protein [Mass/Vol] 6.8 g/dL 6.4-8.2 [facility] Sodium [Moles/Vol] 138 mmol/L 136-145 [facility] Laboratory - Chemistry and C hemistry - challengeOrdered By: Charis Lopez on 12-26-2022 ALP [Catalytic activity/Vol] 48 U/L 45-117 [facility] ALT [Catalytic activity/Vol] 35 U/L 16-61 [facility] CO2 [Moles/Vol] 30.0 mmol/L 21.0-32.0 [facility] Globulin (S) [Mass/Vol] 3.4 g/dL 2.2-4.2 [facility] Urea nitrogen/Creatinine [Mass ratio] 18.9 mg/mg 10-20 [facility] - Hematology and Cell countson 12-26-2022 HbA1c (Bld) [Mass fraction] 6.5 % 4.2-6.3 [facility] No Panel InformationOrdered By: Charis Lopez on 12-26-2022 Urine Microalbumin/Creatinine Ratio 30.4 mg/g CRE <30 [facility] Estimated GFR (MDRD) Amer 109 mL/min >60 [facility] Comment on above: GFR Calc Estimated GFR (MDRD) Non-Af Amer 90 mL/min >60 [facility] Comment on above: Non- GFR Calc Serum or plasma albumin jey urement (mass/volume)Ordered By: Charis Lopez on 12-26-2022 Albumin [Mass/Vol] 3.4 g/dL 3.2-5.0 [facility] Serum or plasma albumin/glob ulin mass ratioOrdered By: Charis Lopez on 12-26-2022 Albumin/Globulin [Mass ratio] 1.0 {ratio} 0.9-2.4 [facility] Serum or plasma calcium jey urement (mass/volume)Ordered By: Charis Lopez on 12-26-2022 Calcium [Mass/Vol] 9.7 mg/dL 8.5-10.1 [facility] Serum or plasma creatinine m easurement (mass/volume)Ordered By: Charis Lopez on 12-26-2022 Creatinine [Mass/Vol] 0.90 mg/dL 0.70-1.30 [facility] Comment on above: The validity of the calculated GFR & GFRAA in patients over 70 years has not been determined. Clinical correlation is essential. Serum or plasma urea nitroge n measurement (mass/volume)Ordered By: Charis Lopez on 12-26-2022 Urea nitrogen [Mass/Vol] 17 mg/dL 7-18 [facility] Thin prep Papanicolaou smear with manual screeningOrdered By: Charis Lopez on 12-26-2022 Thin prep Papanicolaou smear with manual screening 6.4 mg/L NO RANGE EST. [facility] Thin prep Papanicolaou smear with manual screening 23 U/L 15-37 [facility] Thin prep Papanicolaou smear with manual screening 3 5-15 [facility] Urine creatinine measurement (mass/volume)Ordered By: Charis Lopez on 12-26-2022 Creatinine (U) [Mass/Vol] 20.90 mg/dL NO RANGE EST. [facility] - Hematology and Cell countson 09-21-2022 HbA1c (Bld) [Mass fraction] 6.1 % 4.2-6.3 [facility] Absolute lymphocyte countOrd ered By: KAYLAN FAJARDO on 09-20-2022 Lymphocytes Auto (Unsp spec) [#/Vol] 1.61 10*3/uL 0.83-4.51 [facility] Basophil percentageOrdered B y: KAYLAN FAJARDO on 09-20-2022 Basophils/100 WBC (Bld) 1.2 % 0-1 [facility] Cholesterol [Mass/Vol] 173 mg/dL <200 [facility] Comment on above: <200 mg/dL Desirable 200-240 mg/dL Borderline >240 mg/dL High Risk Eosinophils/100 WBC (Bld) 3.4 % 0-5 [facility] Neutrophils (Bld) [#/Vol] 3.1 10*3/uL 2.0-7.7 [facility] Neutrophils/100 WBC (Bld) 55.5 % 47-70 [facility] Triglyceride [Mass/Vol] 76 mg/dL <199 [facility] Comment on above: The drugs N-Acetylcy steine and Metamizole may falsely depress this assay.Serum Triglycerides Reference Interval Normal <150 mg/dL Borderline high 150 - 199 mg/dL High 200 - 499 mg/dL Very High > or = 500 mg/dL WBC (Bld) [#/Vol] 5.6 10*3/uL 4.4-11.0 [facility] Blood erythrocytes count (nu mber/volume)Ordered By: KAYLAN FAJARDO on 09-20-2022 RBC (Bld) [#/Vol] 5.04 10*6/uL 4.6-6.2 [facility] Blood hemoglobin measurement (mass/volume)Ordered By: KAYLAN FAJARDO on 09-20-2022 Hemoglobin (Bld) [Mass/Vol] 16.1 g/dL 13.0-16.5 [facility] Blood lymphocytes/100 leukoc ytesOrdered By: KAYLAN FAJARDO on 09-20-2022 Lymphocytes/100 WBC (Bld) 28.6 % 19-41 [facility] Blood monocytes/100 leukocyt esOrdered By: KAYLAN FAJARDO on 09-20-2022 Monocytes/100 WBC (Bld) 10.9 % 0-10 [facility] Blood platelet mean volumeOr dered By: KAYLAN FAJARDO on 09-20-2022 Platelet mean volume (Bld) [Entitic vol] 10.0 fL 6.2-12.0 [facility] Determination of erythrocyte mean corpuscular volume (MCV)Ordered By: KAYLAN FAJARDO on 09-20-2022 MCV (RBC) [Entitic vol] 94.2 fL 80-94 [facility] Hematocrit Auto (Bld) [Volum e fraction]Ordered By: KAYLAN FAJARDO on 09-20-2022 Hematocrit (Bld) [Volume fraction] 47.5 % 40-54 [facility] Iron measurement (mass/mass) Ordered By: KAYLAN FAJARDO on 09-20-2022 Iron (Unsp spec) [Mass/Mass] 97 ug/dL 65-175 [facility] - Hematology and Cell countsOrdered By: KAYLAN FAJARDO on 09-20-2022 Erythrocyte distribution width (RBC) [Entitic vol] 42.6 fL 35.1-43.9 [facility] Erythrocyte distribution width (RBC) [Ratio] 12.4 % 11.6-14.6 [facility] Immature granulocytes/100 WBC (Bld) 0.400 % 0.0-0.9 [facility] Comment on above: IG% - Immature Granu locytes (promyelocytes, myelocytes and metamyelocytes) > 1% indicates that a LEFT SHIFT is Present. MCH (RBC) [Entitic mass] 31.9 pg 27.0-32.0 [facility] Nucleated RBC/100 WBC (Bld) [Ratio] 0 % 0-5 [facility] MCHC Auto (RBC) [Mass/Vol]Or dered By: KAYLAN FAJARDO on 09-20-2022 MCHC (RBC) [Mass/Vol] 33.9 g/dL 32-36 [facility] No Panel InformationOrdered By: KAYLAN FAJARDO on 09-20-2022 Total Iron Binding Capacity 295 ug/dL 250-450 [facility] Platelets bldOrdered By: STEPHON FAJARDO on 09-20-2022 Platelets (Bld) [#/Vol] 230 10*3/uL 150-450 [facility] Serum or plasma cholesterol in HDL measurement (mass/volume)Ordered By: KAYLAN FAJARDO on 09-20-2022 Cholesterol in HDL [Mass/Vol] 50 mg/dL >40 [facility] Comment on above: The drugs N-Acetylcy steine and Metamizole may falsely depress this assay. Reference Range HDL <40 mg/dL Low HDL Cholesterol HDL >or= 60 mg/dL High HDL Cholesterol Serum or plasma cholesterol in VLDL measurement (mass/volume)Ordered By: KAYLAN FAJARDO on 09-20-2022 Cholesterol in VLDL [Mass/Vol] 15 mg/dL 5-40 [facility] Serum or plasma ferritin karina surement (mass/volume)Ordered By: KAYLAN FAJARDO on 09-20-2022 Ferritin [Mass/Vol] 149 ng/mL 26-388 [facility] Serum or plasma iron saturat ion measurement (mass fraction)Ordered By: KAYLANKEYLA FAJARDO on 09-20-2022 Iron saturation [Mass fraction] 32.9 % 15.0-55.0 [facility] Serum or plasma low density lipoprotein (LDL) cholesterol measurement (mass/volume)Ordered By: KAYLANKEYLA FAJARDO on 09-20-2022 Cholesterol in LDL [Mass/Vol] 108 mg/dL 0-130 [facility] Basophil percentageOrdered B y: Charis Lopez on 07-08-2022 Glucose [Mass/Vol] 96 mg/dL 74-106 [facility] No Panel InformationOrdered By: Charis Lopez on 07-08-2022 C-Peptide < 0.1 ng/mL 1.1-4.4 [facility] Comment on above: C-Peptide reference interval is for fasting patients.Performed at: [facility] [id number] Director: Orlin Dailey PhD, Phone: [phone] Laboratory - Hematology and Cell countson 06-27-2022 HbA1c (Bld) [Mass fraction] 6.4 % 4.2-6.3 [facility] Basophil percentageOrdered B y: Dr. Benítez on 05-20-2022 Basophil percentage < 0.9 mg/dL 0.70-1.30 [facility] No Panel InformationOrdered By: Dr. Benítez on 05-20-2022 Bedside Estimated GFR (eGFR) > 60.0000 mL/min >60 [facility] No Panel InformationOrdered By: Dr. Benítez on 05-12-2022 Prostate Specific Antigen Total < 0.01 ng/mL 0.0-4.0 [facility] Comment on above: This test was perfor med using the TPSA assay method for the[facility] chemistry system. Values obtained with differentassay methods cannot be used interchangably.When changing PSA assays in the course of monitoring apatient, additional sequential testing should be carriedout to confirm baseline values. Basophil percentageon 2021 Bilirubin [Mass/Vol] 0.30 mg/dL 0.20-1.00 [facility] Work Phone: Comment on above: For patients on eltr ombopag therapy, use of Dimension [place] TBIL is not recommended. Chloride [Moles/Vol] 107 mmol/L 98-107 [facility] Work Phone: Cholesterol [Mass/Vol] 176 mg/dL <200 [facility] Work Phone: Comment on above: <200 mg/dL Desirable 200-240 mg/dL Borderline >240 mg/dL High Risk Glucose [Mass/Vol] 148 mg/dL 74-106 [facility] Work Phone: Comment on above: Fasting Glucose resu lt greater than or equal to 126 mg/dL suggests DIABETES MELLITUS per A.D.A. criteria. Potassium [Moles/Vol] 4.7 mmol/L 3.5-5.1 [facility] Work Phone: Protein [Mass/Vol] 6.5 g/dL 6.4-8.2 [facility] Work Phone: Sodium [Moles/Vol] 140 mmol/L 136-145 [facility] Work Phone: Triglyceride [Mass/Vol] 127 mg/dL <199 [facility] Work Phone: Comment on above: The drugs N-Acetylcy steine and Metamizole may falsely depress this assay.Serum Triglycerides Reference Interval Normal <150 mg/dL Borderline high 150 - 199 mg/dL High 200 - 499 mg/dL Very High > or = 500 mg/dL Iron measurement (mass/mass) on 11-16-2021 Iron (Unsp spec) [Mass/Mass] 59 ug/dL 65-175 [facility] Work Phone: Laboratory - Chemistry and C hemistry - challengeon 11-16-2021 ALP [Catalytic activity/Vol] 55 U/L 45-117 [facility] Work Phone: ALT [Catalytic activity/Vol] 31 U/L 16-61 [facility] Work Phone: CO2 [Moles/Vol] 27.0 mmol/L 21.0-32.0 [facility] Work Phone: Globulin (S) [Mass/Vol] 3.5 g/dL 2.2-4.2 [facility] Work Phone: Urea nitrogen/Creatinine [Mass ratio] 23.4 mg/mg 10-20 [facility] Work Phone: No Panel Informationon 11-16 Urine Microalbumin/Creatinine Ratio TNP [facility] Work Phone: Comment on above: Test not performed Estimated GFR (MDRD) Amer 109 mL/min >60 [facility] Work Phone: Comment on above: GFR Calc Estimated GFR (MDRD) Non-Af Amer 90 mL/min >60 [facility] Work Phone: Comment on above: Non- GFR Calc Thyroid Stimulating Hormone (TSH) 1.67 uIU/mL 0.358-3.74 [facility] Work Phone: Vitamin D 25-Hydroxy 48.2 ng/mL [facility] Work Phone: Comment on above: Vitamin D 25(OH) Sta tus Range Deficiency <20 ng/mL (50nmol/L) Insufficiency 20 - 30 ng/mL (50 - 75 nmol/L) Sufficiency 30 - 100 ng/mL (75 - 250 nmol/L) Toxicity >100 ng/mL (>250 nmol/L) Serum or plasma albumin jey urement (mass/volume)on 11-16-2021 Albumin [Mass/Vol] 3.0 g/dL 3.2-5.0 [facility] Work Phone: Serum or plasma albumin/glob ulin mass ratioon 11-16-2021 Albumin/Globulin [Mass ratio] 0.9 {ratio} 0.9-2.4 [facility] Work Phone: Serum or plasma calcium jey urement (mass/volume)on 11-16-2021 Calcium [Mass/Vol] 8.3 mg/dL 8.5-10.1 [facility] Work Phone: Serum or plasma cholesterol in HDL measurement (mass/volume)on 11-16-2021 Cholesterol in HDL [Mass/Vol] 43 mg/dL >40 [facility] Work Phone: Comment on above: The drugs N-Acetylcy steine and Metamizole may falsely depress this assay. Reference Range HDL <40 mg/dL Low HDL Cholesterol HDL >or= 60 mg/dL High HDL Cholesterol Serum or plasma cholesterol in VLDL measurement (mass/volume)on 11-16-2021 Cholesterol in VLDL [Mass/Vol] 25 mg/dL 5-40 [facility] Work Phone: Serum or plasma creatinine m easurement (mass/volume)on 11-16-2021 Creatinine [Mass/Vol] 0.90 mg/dL 0.70-1.30 [facility] Work Phone: Comment on above: The validity of the calculated GFR & GFRAA in patients over 70 years has not been determined. Clinical correlation is essential. Serum or plasma ferritin karina surement (mass/volume)on 11-16-2021 Ferritin [Mass/Vol] 77 ng/mL 26-388 [facility] Work Phone: Serum or plasma low density lipoprotein (LDL) cholesterol measurement (mass/volume)on 11-16-2021 Cholesterol in LDL [Mass/Vol] 108 mg/dL 0-130 [facility] Work Phone: Serum or plasma urea nitroge n measurement (mass/volume)on 11-16-2021 Urea nitrogen [Mass/Vol] 21 mg/dL 7-18 [facility] Work Phone: Thin prep Papanicolaou smear with manual screeningon 11-16-2021 Thin prep Papanicolaou smear with manual screening < 5.0 mg/L NO RANGE EST. [facility] Work Phone: Thin prep Papanicolaou smear with manual screening 19 U/L 15-37 [facility] Work Phone: Thin prep Papanicolaou smear with manual screening 6 5-15 [facility] Work Phone: Urine creatinine measurement (mass/volume)on 11-16-2021 Creatinine (U) [Mass/Vol] 93.40 mg/dL NO RANGE EST. [facility] Work Phone: CORONAVIRUS 2019, SCREEN ASY MPTOMATICon 01-31-2020 CORONAVIRUS 2019,PCR Canceled Normal [facility] [place] Comment on above: Order Comment: TEST CORONAVIRUS 2019, SCREEN ASYMPTOMATIC WAS CANCELLED, 01/31/2020 15:36 DUPLICATE ORDER. Result Comment: . This assay is designed to detect the N, ORF1ab and/or S genes of SARS-CoV-2 via nucleic acid amplification. A Negative (NOT DETECTED) result does not preclude 2019-nCoV infection since the adequacy of sample collection and/or low viral burden may result in presence of viral nucleic acids below the clinical sensitivity of this test method. Negative (NOT DETECTED) result should not be used as the sole basis for treatment or other patient management decisions. Rather negative results should be combined with clinical observations, patient history, and epidemiological information to make patient management decisions. Fact sheet for providers: https://www.fda.gov/media/564237/download Fact sheet for patients: https://www.fda.gov/media/087313/download This test has received FDA Emergency Use Authorization (EUA) and has been verified by [facility] ([facility]). This test is only authorized for the duration of time that circumstances exist to justify the authorization of the emergency use of in vitro diagnostic tests for the detection of SARS-CoV-2 virus and/or diagnosis of COVID-19 infection under section 564(b)(1) of the Act, 21 U.S.C. 360bbb-3(b)(1), unless the authorization is terminated or revoked sooner. [facility] is certified under CLIA-88 as qualified to perform high complexity testing. Testing is performed in the [facility] laboratories located at [address] [place] [address]. Performed By: #### C OVSC #### [facility] [id number] [place] [address] CORONAVIRUS 2019, SCREEN ASY MPTOMATICon 11-21-2019 Lab Specimen Source Nasal, Nasopharyngeal Normal [facility] Comment on above: Order Comment: TEST CORONAVIRUS 2018, SCREEN ASYMPTOMATIC WAS CANCELLED, 01/31/2020 15:36 DUPLICATE ORDER. Performed By: #### C OVSC #### [facility] [id number] [facility] [place] [address] Hemoglobin A1C, Levelon 03-06 HbA1c (Bld) [Mass fraction] 7.4 % 0 [facility] [employer] Work Phone: Vital Signs Date Time Vital Sign Value Performing Clinician Facility 07-17-2024 08:04-0400 Body height 172.[address] Amelia Monique MD Work Phone: [facility] 07-17-2024 08:04-0400 Body mass index (BMI) [Ratio] 23.6 kg/m2 Dr. Amelia Monique MD Work Phone: [facility] 07-17-2024 08:04-0400 Body weight 70.[address] Amelia Monique MD Work Phone: [facility] 07-17-2024 08:04-0400 Diastolic blood pressure 69 mm[Hg] Dr. Amelia Monique MD Work Phone: [facility] 07-17-2024 08:04-0400 Heart rate 67 /min Dr. Amelia Monique MD Work Phone: [facility] 07-17-2024 08:04-0400 SaO2% (BldA) [Mass fraction] 96 % Dr. Amelia Monique MD Work Phone: [facility] 07-17-2024 08:04-0400 Systolic blood pressure 125 mm[Hg] Dr. Amelia Monique MD Work Phone: [facility] 05-06-2024 07:29-0500 Body mass index (BMI) [Ratio] 24.1 kg/m2 Dr. Amelia Monique MD Work Phone: [facility] 05-06-2024 07:29-0500 Body temperature 97.1 [degF] Dr. Amelia Monique MD Work Phone: [facility] 05-06-2024 07:29-0500 Body weight 72.[address] Amelia Monique MD Work Phone: [facility] 05-06-2024 07:29-0500 Diastolic blood pressure 62 mm[Hg] Dr. Amelia Monique MD Work Phone: [facility] 05-06-2024 07:29-0500 Heart rate 67 /min Dr. Amelia Monique MD Work Phone: [facility] 05-06-2024 07:29-0500 Respiratory rate 16 /min Dr. Amelia Monique MD Work Phone: [facility] 05-06-2024 07:29-0500 SaO2% (BldA) [Mass fraction] 97 % Dr. Amelia Monqiue MD Work Phone: [facility] 05-06-2024 07:29-0500 Systolic blood pressure 118 mm[Hg] Dr. Amelia Monique MD Work Phone: [facility] 04-24-2024 08:06-0500 Body mass index (BMI) [Ratio] 24.1 kg/m2 Dr. Amelia Monique MD Work Phone: [facility] 04-24-2024 08:06-0500 Body weight 72.[address] Amelia Monique MD Work Phone: [facility] 04-24-2024 08:06-0500 Diastolic blood pressure 74 mm[Hg] Dr. Amelia Monique MD Work Phone: [facility] 04-24-2024 08:06-0500 Heart rate 68 /min Dr. Amelia Monique MD Work Phone: [facility] 04-24-2024 08:06-0500 SaO2% (BldA) [Mass fraction] 97 % Dr. Amelia Monique MD Work Phone: [facility] 04-24-2024 08:06-0500 Systolic blood pressure 135 mm[Hg] Dr. Amelia Monique MD Work Phone: [facility] 01-30-2023 08:15-0500 Body height 172.7 cm Kaylan Fajardo MD Work Phone: [phone] [place] [address] 01-30-2023 08:15-0500 Body mass index (BMI) [Ratio] 24.94 kg/m2 Kaylan Fajardo MD Work Phone: 2(732)[phone] [place] [address] 01-30-2023 08:15-0500 Body weight 74.39 kg Kaylan Fajardo MD Work Phone: 9(739)877-926128 [place] [address] 01-30-2023 08:15-0500 Diastolic blood pressure 72 mm[Hg] Kaylan Fajardo MD Work Phone: [facility] 01-30-2023 08:15-0500 Heart rate 66 /min Kaylan Fajardo MD Work Phone: 6(960)[phone] [place] [address] 01-30-2023 08:15-0500 Systolic blood pressure 124 mm[Hg] Kaylan Fajardo MD Work Phone: 9(807)[phone] [address] 12-26-2022 08:07-0400 Body height 172.[address] Kaylan Fajardo Work Phone: [facility] 12-26-2022 08:07-0400 Body mass index (BMI) [Ratio] 24.7 kg/m2 Dr. Kaylan Fajardo Work Phone: [facility] 12-26-2022 08:07-0400 Body temperature 97.8 [degF] Dr. Kaylan Fajardo Work Phone: [facility] 12-26-2022 08:07-0400 Body weight 73.[address] Kaylan Fajardo Work Phone: [facility] 12-26-2022 08:07-0400 Diastolic blood pressure 82 mm[Hg] Dr. Kaylan Fajardo Work Phone: [facility] 12-26-2022 08:07-0400 Heart rate 68 /min Dr. Kaylan Fajardo Work Phone: [facility] 12-26-2022 08:07-0400 Respiratory rate 16 /min Dr. Kaylan Fajardo Work Phone: [facility] 12-26-2022 08:07-0400 SaO2% (BldA) [Mass fraction] 97 % Dr. Kaylan Fajardo Work Phone: [facility] 12-26-2022 08:07-0400 Systolic blood pressure 146 mm[Hg] Dr. Kaylan Fajardo Work Phone: [facility] 09-21-2022 10:06-0400 Body height 172.[address] Kaylan Fajardo Work Phone: [facility] 09-21-2022 10:06-0400 Body mass index (BMI) [Ratio] 24.2 kg/m2 Dr. Kaylan Fajardo Work Phone: [facility] 09-21-2022 10:06-0400 Body temperature 98.2 [degF] Dr. Kaylan Fajardo Work Phone: [facility] 09-21-2022 10:06-0400 Body weight 72.[address] Kaylan Fajardo Work Phone: [facility] 09-21-2022 10:06-0400 Diastolic blood pressure 74 mm[Hg] Dr. Kaylan Fajardo Work Phone: [facility] 09-21-2022 10:06-0400 Heart rate 62 /min Dr. Kaylan Fajardo Work Phone: [facility] 09-21-2022 10:06-0400 Respiratory rate 16 /min Dr. Kaylan Fajardo Work Phone: [facility] 09-21-2022 10:06-0400 SaO2% (BldA) [Mass fraction] 97 % Dr. Kaylan Fajardo Work Phone: [facility] 09-21-2022 10:06-0400 Systolic blood pressure 160 mm[Hg] Dr. Kaylan Fajardo Work Phone: [facility] 07-12-2022 20:14-0400 Respiratory rate 18 /min Dr. Kaylan Fajardo Work Phone: [facility] 07-12-2022 15:34-0400 Body temperature 96.8 [degF] Dr. Kaylan Fajardo Work Phone: [facility] 07-12-2022 15:34-0400 SaO2% (BldA) [Mass fraction] 98 % Dr. Kaylan Fajardo Work Phone: [facility] 07-12-2022 15:24-0400 Body height 172.[address] Kaylan Fajardo Work Phone: [facility] 07-12-2022 15:24-0400 Body mass index (BMI) [Ratio] 23.6 kg/m2 Dr. Kaylan Fajardo Work Phone: [facility] 07-12-2022 15:24-0400 Body weight 70.[address] Kaylan Fajardo Work Phone: [facility] 07-12-2022 15:24-0400 Diastolic blood pressure 78 mm[Hg] Dr. Kaylan Fajardo Work Phone: [facility] 07-12-2022 15:24-0400 Heart rate 88 /min Dr. Kaylan Fajardo Work Phone: [facility] 07-12-2022 15:24-0400 Systolic blood pressure 140 mm[Hg] Dr. Kaylan Fajardo Work Phone: [facility] 06-27-2022 13:18-0400 Body mass index (BMI) [Ratio] 24.5 kg/m2 Dr. Kaylan Fajardo Work Phone: [facility] 06-27-2022 13:18-0400 Body temperature 97.8 [degF] Dr. Kaylan Fajardo Work Phone: [facility] 06-27-2022 13:18-0400 Body weight 73.[address] Kaylan Fajardo Work Phone: [facility] 06-27-2022 13:18-0400 Diastolic blood pressure 73 mm[Hg] Dr. Kaylan Fajardo Work Phone: [facility] 06-27-2022 13:18-0400 Heart rate 67 /min Dr. Kaylan Fajardo Work Phone: [facility] 06-27-2022 13:18-0400 Respiratory rate 18 /min Dr. Kaylan Fajardo Work Phone: [facility] 06-27-2022 13:18-0400 SaO2% (BldA) [Mass fraction] 97 % Dr. Kaylan Fajardo Work Phone: [facility] 06-27-2022 13:18-0400 Systolic blood pressure 151 mm[Hg] Dr. Kaylan Fajardo Work Phone: [facility] 03-19-2021 14:51-0500 Diastolic blood pressure 68 mm[Hg] Krunal Wilson [employer] Work Phone: [facility] 03-19-2021 14:51-0500 Heart rate 71 /min Krunal Wilson [employer] Work Phone: [facility] 03-19-2021 14:51-0500 Systolic blood pressure 124 mm[Hg] Krunalkana Wilson [employer] Work Phone: [facility] 03-19-2021 14:43-0500 Body height 172.7 cm Krunal Wilson [employer] Work Phone: [facility] 03-19-2021 14:43-0500 Body mass index (BMI) [Ratio] 24.19 kg/m2 Krunal Wilson [employer] Work Phone: [facility] 03-19-2021 14:43-0500 Body weight 72.17 kg Krunalkana Wilson [employer] Work Phone: [facility] 09-21-2020 14:16-0400 Diastolic blood pressure 69 mm[Hg] Krunal Wilson [employer] Work Phone: [facility] 09-21-2020 14:16-0400 Heart rate 64 /min Krunal Wilson [employer] Work Phone: [facility] 09-21-2020 14:16-0400 Systolic blood pressure 131 mm[Hg] Krunalkana Wilson [employer] Work Phone: [facility] 09-21-2020 14:07-0400 Body height 172.7 cm Krunal Wilson [employer] Work Phone: [facility] 09-21-2020 14:07-0400 Body mass index (BMI) [Ratio] 24.08 kg/m2 Krunal Wilsno [employer] Work Phone: [facility] 09-21-2020 14:07-0400 Body weight 71.85 kg Krunal Wilson [employer] Work Phone: [facility] 03-23-2020 13:40-0500 BMI (Body Mass Index) 24.89 kg/m2 Krunal Wilson [facility] 03-23-2020 13:40-0500 Body weight 74.25 kg Krunal Wilson [facility] 03-23-2020 13:40-0500 BP Diastolic 68 mm[Hg] Krunal Wilson [facility] 03-23-2020 13:40-0500 BP Systolic 117 mm[Hg] Krunal Wilson [facility] 03-23-2020 13:40-0500 Height 172.7 cm Krunal [facility] 03-23-2020 13:40-0500 Pulse (Heart Rate) 86 /min Krunal [facility] 09-16-2019 13:43-0400 BMI (Body Mass Index) 24.63 kg/m2 Krunal [facility] 09-16-2019 13:43-0400 Body weight 73.48 kg Krunal [facility] 09-16-2019 13:43-0400 BP Diastolic 71 mm[Hg] Krunal [facility] 09-16-2019 13:43-0400 BP Systolic 126 mm[Hg] Krunal [facility] 09-16-2019 13:43-0400 Height 172.7 cm [facility] 09-16-2019 13:43-0400 Pulse (Heart Rate) 63 /min [facility] 07-09-2019 11:13-0400 BMI (Body Mass Index) 25.61 kg/m2 Kaylan Fajardo [facility] Work Phone: 07-09-2019 11:13-0400 Body weight 76.4 kg Kaylan Fajardo [facility] Work Phone: 07-09-2019 11:13-0400 BP Diastolic 74 mm[Hg] Kaylan Fajardo [facility] Work Phone: 07-09-2019 11:13-0400 BP Systolic 114 mm[Hg] Kaylan Fajardo [facility] Work Phone: 07-09-2019 11:13-0400 BSA (Body Surface Area) 1.9 m2 Kaylan Fajardo [facility] Work Phone: 07-09-2019 11:13-0400 Height 172.72 cm Kaylan Fajardo [facility] Work Phone: 07-09-2019 11:13-0400 Pulse (Heart Rate) 72 /min Kaylan Fajardo [facility] Medicine Work Phone: 03-18-2019 14:28-0500 BMI (Body Mass Index) 25.44 kg/m2 [facility] 03-18-2019 14:28-0500 Body Temperature 97.5 [degF] [facility] 03-18-2019 14:28-0500 Body weight 75.89 kg [facility] 03-18-2019 14:28-0500 BP Diastolic 88 mm[Hg] [facility] 03-18-2019 14:28-0500 BP Systolic 138 mm[Hg] [facility] 03-18-2019 14:28-0500 Height 172.7 cm [facility] 03-18-2019 14:28-0500 Pulse (Heart Rate) 74 /min [facility] 03-18-2019 14:28-0500 Pulse Oximetry 97 % [facility] 03-18-2019 14:28-0500 Respiratory Rate 16 /min [facility] 11-20-2018 15:06-0400 BMI (Body Mass Index) 24.91 kg/m2 [facility] 11-20-2018 15:06-0400 Body weight 74.39 kg [facility] 11-20-2018 15:06-0400 BP Diastolic 74 mm[Hg] [facility] 11-20-2018 15:06-0400 BP Systolic 147 mm[Hg] [facility] 11-20-2018 15:06-0400 Height 172.8 cm [facility] 11-20-2018 15:06-0400 Pulse (Heart Rate) 71 /min [facility] 08-16-2018 14:57-0400 BMI (Body Mass Index) 25.71 kg/m2 [facility] 08-16-2018 14:57-0400 BP Diastolic 78 mm[Hg] [facility] [address] 08-16-2018 14:57-0400 BP Systolic 151 mm[Hg] [facility] [address] 08-16-2018 14:57-0400 Height 172.8 cm [facility] [address] 08-16-2018 14:57-0400 Pulse (Heart Rate) 69 /min [facility] [address] 08-16-2018 14:57-0400 Weight 76.8 kg [facility] [address] 05-15-2018 12:51-0400 BMI (Body Mass Index) 24.75 kg/m2 [facility] 05-15-2018 12:51-0400 BP Diastolic 81 mm[Hg] [facility] [address] 05-15-2018 12:51-0400 BP Systolic 151 mm[Hg] [facility] [address] 05-15-2018 12:51-0400 Height 172.7 cm [facility] [address] 05-15-2018 12:51-0400 Pulse (Heart Rate) 81 /min [facility] [address] 05-15-2018 12:51-0400 Weight 73.85 kg [facility] [address] Encounters Encounter Date Encounter Type Care Provider Facility Start: 07-17-2024 End: 07-17-2024 Patient encounter procedure Charis ROCHA -[facility] Work Phone: Start: 07-17-2024 End: 07-17-[address] Amelia Monique MD Work Phone: [facility] Work Phone: Start: 05-06-2024 End: 05-06-[address] Amelia Monique MD -[facility] Work Phone: Start: 05-06-2024 End: 05-06-2024 ambulatory Amelia Monique Facility:[facility] Start: 04-24-2024 End: 04-24-2024 Patient encounter procedure Charis ROCHA -[facility] Work Phone: Start: 04-24-2024 End: 04-24-2024 ambulatory Amelia Monique Facility:[facility] Start: 01-17-2024 End: 01-17-2024 ambulatory Amelia Monique Facility:[facility] Start: 10-09-2023 End: 10-09-2023 ambulatory Charis Lopez Facility:[facility] Start: 10-02-2023 End: 10-02-2023 ambulatory [facility] Facility:[facility] Start: 01-30-2023 End: 01-30-2023 ambulatory [facility] Start: 01-30-2023 End: 01-30-2023 Patient encounter procedure Kaylan Fajardo MD Work Phone: [facility] Comment on above: Medicare annual well ness visit, initial (Primary Dx); Encounter for vaccination; Type 1 diabetes mellitus without complication (CMS/HCC); Mixed hyperlipidemia; Iron deficiency; Anemia, unspecified type Start: 12-26-2022 End: 12-26-[address] Kaylan Fajardo Work Phone: [facility] Work Phone: Start: 12-26-2022 End: 12-26-[address] [facility] Work [facility]: Start: 12-26-2022 End: 12-26-[address] Kaylan Fajardo Work Phone: [facility] Work Phone: Start: 09-27-2022 End: 09-27-2022 ambulatory [facility] Start: 09-21-2022 End: 09-21-[address] Kaylan Fajardo Work Phone: [facility] Work Phone: Start: 09-20-2022 End: 09-20-[address] Kaylan Fajardo Work Phone: [facility] Work Phone: Start: 09-20-2022 End: 09-20-[address] Kaylan Fajardo Work Phone: [facility] Work Phone: Start: 07-26-2022 End: 07-26-2022 ambulatory [facility] Start: 07-12-2022 End: 07-12-2022 Emergency department patient visit Dr. Kaylan Fajardo Work Phone: [facility] Start: 07-08-2022 End: 07-08-[address] Kaylan Fajardo Work Phone: [facility] Work Phone: Start: 07-08-2022 End: 07-08-[address] Kaylan Fajardo Work Phone: [facility] Start: 06-27-2022 End: 06-27-[address] Kaylan Fajardo Work Phone: [facility] Start: 05-20-2022 End: 05-20-2022 ambulatory [facility] Work Phone: Start: 05-20-2022 End: 05-20-2022 Patient encounter procedure [facility] Start: 05-12-2022 End: 05-12-2022 ambulatory [facility] Work Phone: Start: 05-12-2022 End: 05-12-2022 Patient encounter procedure [facility] Start: 11-16-2021 End: 11-16-2021 ambulatory [facility] Work Phone: Start: 11-16-2021 End: 11-16-2021 Patient encounter procedure [facility] Start: 04-06-2021 ambulatory [facility] Start: 03-19-2021 End: 03-19-2021 ambulatory KRUNAL WILSON [facility] Amb[facility] Start: 03-19-2021 End: 03-19-2021 Office outpatient visit 25 minutes Krunal Wilson [employer] Work Phone: [facility] [place] Comment on above: Type 1 diabetes tabitha itus without complication (HCC) (Primary Dx); Mixed hyperlipidemia Start: 03-16-2021 ambulatory KRUNAL WILSON [facility] Start: 02-12-2021 ambulatory [facility] Start: 10-16-2020 Refill Krunal Wilson [employer] Work Phone: [facility] Start: 09-22-2020 ambulatory [facility] Start: 09-21-2020 End: 09-21-2020 ambulatory KRUNAL WILSON [facility] Start: 09-21-2020 End: 09-21-2020 Office outpatient visit 25 minutes Krunal Wilson [employer] Work Phone: [facility] [place] Comment on above: Type 1 diabetes tabitha itus without complication (HCC) (Primary Dx); Mixed hyperlipidemia Start: 05-12-2020 End: 05-12-2020 Orders Only Heidi Yadav Ruthie Work Phone: [facility] Provider Hospitalist Start: 03-23-2020 End: 03-23-2020 Office outpatient visit 25 minutes Krunal Wilson Work Phone: [facility] Comment on above: Type 1 diabetes tabitha itus without complication (HCC) (Primary Dx); Mixed hyperlipidemia Start: 11-19-2019 Patient encounter procedure Kaylan Fajardo [facility] [employer] Work Phone: Start: 10-08-2019 Patient encounter procedure Kaylan Fajardo [facility] [employer] Work Phone: Start: 09-16-2019 End: 09-16-2019 Office outpatient visit 25 minutes Krunal Wilson Work Phone: [facility] Comment on above: Type 1 diabetes tabitha itus without complication (HCC) (Primary Dx); Mixed hyperlipidemia Start: 08-05-2019 Patient encounter procedure Kaylan Fajardo [facility] [employer] Work Phone: Start: 07-09-2019 Patient encounter procedure Kaylan Fajardo [facility] [employer] Work Phone: Start: 03-18-2019 End: 03-18-2019 Office outpatient visit 25 minutes Krunal Wilson Work Phone: [facility] Comment on above: Type 1 diabetes tabitha itus without complication (HCC) (Primary Dx); Mixed hyperlipidemia Start: 11-20-2018 End: 11-20-2018 Office outpatient visit 25 minutes Krunal Wilson Work Phone: [facility] Comment on above: Type 1 diabetes tabitha itus without complication (HCC) (Primary Dx); Mixed hyperlipidemia Start: 08-16-2018 End: 08-16-2018 Office outpatient visit 25 minutes [facility] [place] Work Phone: [facility] Comment on above: Type 1 diabetes tabitha itus without complication (HCC) (Primary Dx); Mixed hyperlipidemia Start: 05-15-2018 End: 05-15-2018 Office outpatient new 45 minutes [facility] [place] Work Phone: [facility] Comment on above: Controlled type 1 di abetes mellitus with hyperglycemia (HCC) (Primary Dx) Start: 11-09-2017 End: 11-10-2017 Patient encounter Kaylan Fajardo Facility:[facility] Start: 10-26-2017 End: 10-26-2017 Patient encounter Kaylan Fajardo Facility:[facility] Internal [facility] Procedures Date Procedure Procedure Detail Performing Clinician Start: 09-27-2022 Follow-up visit Follow-up KAYLAN FAJARDO Start: 05-20-2022 Computed tomography of abdomen and pelvis with contrast Start: 03-19-2021 3 comp foot exam completed Krunal Wilson [employer] Work Phone: Start: 09-21-2020 3 comp foot exam completed Krunal Wilson [employer] Work Phone: Start: 03-23-2020 3 comp foot exam completed Krunal Wilson Start: 09-12-2019 Microalbumin [Mass/v olume] in Urine by Test strip Krunal Wilson [employer] Work Phone: Start: 07-09-2019 Follow-up visit Start: 03-18-2019 3 comp foot exam completed Krunal Wilson Start: 11-20-2018 3 comp foot exam completed Krunal Wilson Start: 05-15-2018 3 comp foot exam completed [place] Start: 02-04-2010 End: 02-04-2010 Lisa Fajardo End: 01-27-2019 Radha Fajardo Plan of Treatment Date Care Activity Detail Author Start: 07-12-2032 DTaP/Tdap/Td Vaccine s (2 - Td or Tdap) DTaP/Tdap/Td Vaccines (2 - Td or Tdap) [facility] Start: 12-27-2027 Diabetes: Celiac Disease Screening Diabetes: Celiac Disease Screening [facility] Start: 12-27-2023 Urine screening for protein Diabetes: Urine Protein Screening [facility] Start: 07-27-2023 Screening for malignant neoplasm of colon Colorectal Cancer Screening [facility] Comment on above: Postponed from 06/04 (Patient Refused) Start: 07-26-2023 End: 07-26-2023 Patient encounter procedure 07/26/2023 8:00 AM EDT Office Visit [facility] [address] [place] [id number] Kaylan Fajardo MD [address] [place], [place] [id number] [facility] Start: 03-24-2023 Hemoglobin A1c measurement Diabetes: Hemoglobin A1C [facility] Start: 01-30-2023 End: 01-31-2024 CBC W Auto Differential panel - Blood CBC and Auto Differential Lab Routine Anemia, unspecified type Expected: 01/30/2023 (Approximate), Expires: 01/31/2024 [facility] Work Phone: Comment on above: Expected: 01/30/2023 (Approximate), Expires: 01/31/2024 Start: 01-30-2023 End: 01-31-2024 Comprehensive metabolic 2000 panel - Serum or Plasma Comprehensive Metabolic Panel Lab Routine Type 1 diabetes mellitus without complication (CMS/HCC) Expected: 01/30/2023 (Approximate), Expires: 01/31/2024 [facility] Service Area Work Phone: Comment on above: Expected: 01/30/2023 (Approximate), Expires: 01/31/2024 Start: 01-30-2023 End: 01-31-2024 Ferritin [Mass/volume] in Serum or Plasma Ferritin Lab Routine Iron deficiency Expected: 01/30/2023 (Approximate), Expires: 01/31/2024 [facility] Work Phone: Comment on above: Expected: 01/30/2023 (Approximate), Expires: 01/31/2024 Start: 01-30-2023 End: 01-31-2024 Hemoglobin A1c/Hemoglobin.total in Blood Hemoglobin A1C Lab Routine Type 1 diabetes mellitus without complication (CMS/HCC) Expected: 01/30/2023 (Approximate), Expires: 01/31/2024 [facility] Work Phone: Comment on above: Expected: 01/30/2023 (Approximate), Expires: 01/31/2024 Start: 01-30-2023 End: 01-31-2024 Iron and Iron binding capacity panel - Serum or Plasma Iron and TIBC Lab Routine Iron deficiency Expected: 01/30/2023 (Approximate), Expires: 01/31/2024 [facility] Work Phone: Comment on above: Expected: 01/30/2023 (Approximate), Expires: 01/31/2024 Start: 01-30-2023 End: 01-31-2024 Lipid 1996 panel - Serum or Plasma Lipid Panel Lab Routine Mixed hyperlipidemia Expected: 01/30/2023 (Approximate), Expires: 01/31/2024 [facility] Work Phone: Comment on above: Expected: 01/30/2023 (Approximate), Expires: 01/31/2024 Start: 11-04-2022 Influenza vaccination Influenza Vacc ine (#1) [facility] Start: 07-12-2022 Smpl rpr scalp/neck/ax/genit/tr unk 12.6-20.0cm RPR S/N/A/GEN/[id number] CM [facility] Start: 03-19-2022 Diabetic foot examination Foot Exam [facility] Start: 09-21-2021 Diabetic foot examination Foot Exam [facility] Start: 09-13-2021 Hemoglobin A1c measurement A1C [facility] Start: 09-11-2021 Prostate specific antigen measurement PSA Level [facility] Start: 03-23-2021 Diabetic foot examination Foot Exam [facility] Start: 03-19-2021 End: 03-19-2021 Patient encounter procedure 03/19/2021 Office Visit Endocrinology Krunal Wilson, [employer] [address] [place] [address] [facility] [place] Start: 03-13-2021 Hemoglobin A1c measurement A1C [facility] Start: 03-06-2021 End: 09-22-2021 Comprehensive metabolic 2000 panel - Serum or Plasma Comprehensive Metabolic Panel Lab Routine Type 1 diabetes mellitus without complication (HCC) Expected: 03/06/2021, Expires: 09/22/2021 [facility] [facility] Comment on above: Expected: 03/06/2021 , Expires: 09/22/2021 Start: 03-06-2021 End: 09-22-2021 Hemoglobin A1c/Hemoglobin.total in Blood Hemoglobin A1c Lab Routine Type 1 diabetes mellitus without complication (HCC) Expected: 03/06/2021, Expires: 09/22/2021 [facility] Work Phone: Comment on above: Expected: 03/06/2021 , Expires: 09/22/2021 Start: 11-04-2020 Influenza vaccination Sequenti al Influenza Vaccine (#1) [facility] Start: 09-21-2020 End: 09-21-2020 Office Visit 09/21/2020 Office Visit Endocrinology Krunal Wilson, [employer] [address] [place] [address] [phone] [facility] [place] Start: 09-17-2020 HbA1c (Bld) [Mass fraction] A1C [facility] Start: 09-11-2020 Microalbumin measurement, urine, quantitative Urine Microalbumin [facility] Start: 09-03-2020 End: 03-24-2021 Complete blood count with white cell differential, manual CBC and Differential Lab Routine Type 1 diabetes mellitus without complication (HCC) Expected: 09/03/2020, Expires: 03/24/2021 [facility] Comment on above: Expected: 09/03/2020 , Expires: 03/24/2021 Start: 09-03-2020 End: 03-24-2021 Comprehensive metabolic 2000 panel Comprehensive Metabolic Panel Lab Routine Type 1 diabetes mellitus without complication (HCC) Expected: 09/03/2020, Expires: 03/24/2021 [facility] Comment on above: Expected: 09/03/2020 , Expires: 03/24/2021 Start: 09-03-2020 End: 03-24-2021 Free T4 [Mass/Vol] T4, Free Lab Routine Type 1 diabetes mellitus without complication (HCC) Expected: 09/03/2020, Expires: 03/24/2021 [facility] Comment on above: Expected: 09/03/2020 , Expires: 03/24/2021 Start: 09-03-2020 End: 03-24-2021 HbA1c (Bld) [Mass fraction] Hemoglobin A1c Lab Routine Type 1 diabetes mellitus without complication (HCC) Expected: 09/03/2020, Expires: 03/24/2021 [facility] Comment on above: Expected: 09/03/2020 , Expires: 03/24/2021 Start: 09-03-2020 End: 03-24-2021 Lipid 1996 panel Lipid Panel Lab Routine Type 1 diabetes mellitus without complication (HCC) Expected: 09/03/2020, Expires: 03/24/2021 [facility] Comment on above: Expected: 09/03/2020 , Expires: 03/24/2021 Start: 09-03-2020 End: 03-23-2021 Microalbumin measurement, urine, quantitative Microalbumin/Creatinin e Ratio, UR Random Lab Routine Type 1 diabetes mellitus without complication (HCC) Expected: 09/03/2020, Expires: 03/23/2021 [facility] Comment on above: Expected: 09/03/2020 , Expires: 03/23/2021 Start: 09-03-2020 End: 03-24-2021 TSH Qn TSH Lab Routine Type 1 diabetes mellitus without complication (HCC) Expected: 09/03/2020, Expires: 03/24/2021 [facility] Comment on above: Expected: 09/03/2020 , Expires: 03/24/2021 Start: 03-23-2020 End: 03-23-2020 Office Visit 03/23/2020 Office Visit Endocrinology Krunal Wilson, [employer] [address] [address] [phone] [facility] Start: 03-18-2020 Diabetic foot examination Foot Exam [facility] Start: 03-14-2020 HbA1c (Bld) [Mass fraction] A1C [facility] Start: 02-05-2020 Screening for malignant neoplasm of colon [facility] Start: 11-21-2019 Diabetic foot examination FOOT EXAM [facility] Start: 11-05-2019 Influenza vaccinatio n given Sequential Influenza Vaccine (#1) [facility] Start: 09-16-2019 End: 09-16-2019 Office Visit 09/16/2019 Office Visit Endocrinology Krunal Wilson, [employer] [address] [facility] [address] [place] [address] [phone] [facility] Start: 09-13-2019 HbA1c (Bld) [Mass fraction] A1C [facility] Start: 05-16-2019 Diabetic foot examination FOOT EXAM [facility] Start: 03-21-2019 End: 03-21-2019 Office Visit 03/21/2019 Office Visit Endocrinology Krunal Wilson, JEAN [address] [facility] [address] [place] [address] [phone] [facility] Start: 02-13-2019 Hemoglobin A1c/Hemoglobin.total mass fraction (Bld) A1C [facility] Start: 11-20-2018 End: 11-20-2018 Office Visit 11/20/2018 Office Visit Endocrinology Krunal Wilson CNP [address] [facility] [address] [place] [address] [phone] [facility] Start: 11-04-2018 Influenza vaccinatio n given [facility] Start: 08-16-2018 End: 08-16-2018 Office Visit [facility] Start: 11-04-2017 Influenza vaccinatio n given SEQUENTIAL INFLUENZA VACCINE (#1) [facility] Start: 06-05-2007 Administration of herpes zoster vaccine ZOSTER VACCINES (1 of 2) [facility] Start: 06-05-2007 Screening for malignant neoplasm of colon [facility] Start: 06-05-2007 Zoster Vaccines (1 o f 2) Zoster Vaccines (1 of 2) [facility] Start: 06-05-1975 Hepatitis C antibody , confirmatory test Hepatitis C Screening [facility] Start: 06-05-1975 Hepatitis C screening Hepatitis C Sc reening [facility] Start: 1973 COVID-19 Vaccine (1 of 2) COVID-19 Vaccine (1 of 2) [facility] Start: 1972 HIV screening HIV Screening [facility] Start: 1969 Adolescent depressio n screening assessment Depression Screening (PHQ9) [facility] Start: 1969 COVID-19 Vaccine (1) COVID-19 Vaccin e (1) [facility] Start: 1969 Depression screening using PHQ-9 (Patient Health Questionnaire 9) score [facility] Start: 06-05-1967 Albumin DL <= 20 mg/ L mass conc (U) URINE MICROALBUMIN [facility] Start: 06-05-1967 Diabetic foot examination Diabetes: Foot Exam [facility] Start: 06-05-1967 Glaucoma screening Diabetes: R etinopathy Screening [facility] Start: 06-05-1967 Ophthalmic examinati on and evaluation Ophthalmology Exam [facility] Start: 06-05-1963 Pneumococcal Vaccine : 65+ Years (1 - PCV) Pneumococcal Vaccine: 65+ Years (1 - PCV) [facility] Start: 06-05-1963 Pneumococcal Vaccine : Ped or At-Risk (1 of 2 - PPSV23) Pneumococcal Vaccine: Ped or At-Risk (1 of 2 - PPSV23) [facility] Start: 1962 COVID-19 Vaccine (1) COVID-19 Vaccin e (1) [facility] Start: 1960 History and physical examination, annual for health maintenance Wellness Visit [facility] Start: 1958 MMR Vaccines (1 of 1 - Standard series) MMR Vaccines (1 of 1 - Standard series) [facility] Start: 1957 COVID-19 Vaccine (#1) COVID-19 Vacci ne (#1) [facility] Start: 1957 Cyanocobalamin vitam in b-12 Vitamin B-12 [facility] Start: 1957 Hepatitis C antibody , confirmatory test HEPATITIS C SCREENING [facility] Start: 1957 Lipid panel Lipid Panel [facility] Start: 1957 Prostate specific antigen measurement PSA Level [facility] Start: 1957 Screening for malignant neoplasm of colon [facility] Start: 1957 Tetanus vaccination [facility] Start: 1957 Thyroid stimulating hormone measurement TSH Level [facility] End: 05-16-2019 Complete blood count with white cell differential, manual CBC and Differential Routine Controlled type 1 diabetes mellitus with hyperglycemia (HCC) 1 Occurrences starting 05/15/2018 until 05/16/2019 [facility] Comment on above: 1 Occurrences starti ng 05/15/2018 until 05/16/2019 End: 03-18-2020 Complete blood count with white cell differential, manual CBC and Differential Lab Routine Type 1 diabetes mellitus without complication (HCC) 1 Occurrences starting 03/18/2019 until 03/18/2020 [facility] Comment on above: 1 Occurrences starti ng 03/18/2019 until 03/18/2020 End: 05-16-2019 Comprehensive metabolic 2000 panel Comprehensive Metabolic Panel Routine Controlled type 1 diabetes mellitus with hyperglycemia (HCC) 1 Occurrences starting 05/15/2018 until 05/16/2019 [facility] Comment on above: 1 Occurrences starti ng 05/15/2018 until 05/16/2019 End: 08-17-2019 Comprehensive metabolic 2000 panel Comprehensive Metabolic Panel Lab Routine Type 1 diabetes mellitus without complication (HCC) 1 Occurrences starting 08/16/2018 until 08/17/2019 [facility] Comment on above: 1 Occurrences starti ng 08/16/2018 until 08/17/2019 End: 11-21-2019 Comprehensive metabolic 2000 panel Comprehensive Metabolic Panel Lab Routine Type 1 diabetes mellitus without complication (HCC) 1 Occurrences starting 11/20/2018 until 11/21/2019 [facility] Comment on above: 1 Occurrences starti ng 11/20/2018 until 11/21/2019 End: 03-18-2020 Comprehensive metabolic 2000 panel Comprehensive Metabolic Panel Lab Routine Type 1 diabetes mellitus without complication (HCC) 1 Occurrences starting 03/18/2019 until 03/18/2020 [facility] Comment on above: 1 Occurrences starti ng 03/18/2019 until 03/18/2020 End: 09-16-2020 Comprehensive metabolic 2000 panel Comprehensive Metabolic Panel Lab Routine Type 1 diabetes mellitus without complication (HCC) 1 Occurrences starting 09/16/2019 until 09/16/2020 [facility] Comment on above: 1 Occurrences starti ng 09/16/2019 until 09/16/2020 Comprehensive metabolic 2000 panel - Serum or Plasma [facility] End: 05-16-2019 External Lab Microalbumin/Creatinin e External Lab Microalbumin/Creatinin e Routine Controlled type 1 diabetes mellitus with hyperglycemia (HCC) 1 Occurrences starting 05/15/2018 until 05/16/2019 [facility] Comment on above: 1 Occurrences starti ng 05/15/2018 until 05/16/2019 End: 03-18-2020 Free T4 [Mass/Vol] T4, Free Lab Routine Type 1 diabetes mellitus without complication (HCC) 1 Occurrences starting 03/18/2019 until 03/18/2020 [facility] Comment on above: 1 Occurrences starti ng 03/18/2019 until 03/18/2020 End: 11-21-2019 HbA1c (Bld) [Mass fraction] Hemoglobin A1c Lab Routine Type 1 diabetes mellitus without complication (HCC) 1 Occurrences starting 11/20/2018 until 11/21/2019 [facility] Comment on above: 1 Occurrences starti ng 11/20/2018 until 11/21/2019 End: 03-18-2020 HbA1c (Bld) [Mass fraction] Hemoglobin A1c Lab Routine Type 1 diabetes mellitus without complication (HCC) 1 Occurrences starting 03/18/2019 until 03/18/2020 [facility] Comment on above: 1 Occurrences starti ng 03/18/2019 until 03/18/2020 End: 09-16-2020 HbA1c (Bld) [Mass fraction] Hemoglobin A1c Lab Routine Type 1 diabetes mellitus without complication (HCC) 1 Occurrences starting 09/16/2019 until 09/16/2020 [facility] Comment on above: 1 Occurrences starti ng 09/16/2019 until 09/16/2020 End: 05-16-2019 Hemoglobin A1c/Hemoglobin.total mass fraction (Bld) Hemoglobin A1c Routine Controlled type 1 diabetes mellitus with hyperglycemia (HCC) 1 Occurrences starting 05/15/2018 until 05/16/2019 [facility] Comment on above: 1 Occurrences starti ng 05/15/2018 until 05/16/2019 End: 08-17-2019 Hemoglobin A1c/Hemoglobin.total mass fraction (Bld) Hemoglobin A1c Lab Routine Type 1 diabetes mellitus without complication (HCC) 1 Occurrences starting 08/16/2018 until 08/17/2019 [facility] Comment on above: 1 Occurrences starti ng 08/16/2018 until 08/17/2019 End: 05-16-2019 Lipid 1996 panel Lipid Panel Routine Controlled type 1 diabetes mellitus with hyperglycemia (HCC) 1 Occurrences starting 05/15/2018 until 05/16/2019 [facility] Comment on above: 1 Occurrences starti ng 05/15/2018 until 05/16/2019 End: 11-21-2019 Lipid 1996 panel Lipid Panel Lab Routine Type 1 diabetes mellitus without complication (HCC) 1 Occurrences starting 11/20/2018 until 11/21/2019 [facility] Comment on above: 1 Occurrences starti ng 11/20/2018 until 11/21/2019 End: 03-18-2020 Lipid 1996 panel Lipid Panel Lab Routine Type 1 diabetes mellitus without complication (HCC) 1 Occurrences starting 03/18/2019 until 03/18/2020 [facility] Comment on above: 1 Occurrences starti ng 03/18/2019 until 03/18/2020 Lipid 1996 panel - Serum or Plasma [facility] End: 03-18-2020 Microalbumin measurement, urine, quantitative Microalbumin/Creatinin e Ratio, UR Random Lab Routine Type 1 diabetes mellitus without complication (HCC) 1 Occurrences starting 03/18/2019 until 03/18/2020 [facility] Comment on above: 1 Occurrences starti ng 03/18/2019 until 03/18/2020 Patient Education ED Laceration Extremity [facility] Work Phone: Patient referral [facility] Work Phone: Prostate specific antigen measurement [facility] End: 05-16-2019 T4 free mass conc T4, Free Routine Controlled type 1 diabetes mellitus with hyperglycemia (HCC) 1 Occurrences starting 05/15/2018 until 05/16/2019 [facility] Comment on above: 1 Occurrences starti ng 05/15/2018 until 05/16/2019 Thyroid stimulating hormone measurement [facility] End: 05-16-2019 Thyrotropin Qn TSH Routine Controlled type 1 diabetes mellitus with hyperglycemia (HCC) 1 Occurrences starting 05/15/2018 until 05/16/2019 [facility] Comment on above: 1 Occurrences starti ng 05/15/2018 until 05/16/2019 End: 03-18-2020 TSH Qn TSH Lab Routine Type 1 diabetes mellitus without complication (HCC) 1 Occurrences starting 03/18/2019 until 03/18/2020 [facility] Comment on above: 1 Occurrences starti ng 03/18/2019 until 03/18/2020 Urine microalbumin/creatinin e ratio measurement [facility] Vitamin D, 25-hydrox y measurement [facility] NEGATED: Highlighted row has been ruled out! Planned Goals not documented [facility] Work Phone: Immunizations Immunization Date Immunization Notes Care Provider Fa cili 01-30-2023 zoster vaccine-recombinant adjuvanted (Shingrix, PF,) 50 mcg/0.5 mL vaccine Kaylan Fajardo MD Work Phone: [facility] Work Phone: 01-30-2023 pneumoc 20-erich conj- dip cr,PF, (Prevnar 20, PF,) 0.5 mL vaccine Kaylan Fajardo MD Work Phone: [facility] Work Phone: 07-12-2022 tetanus toxoid, redu brandy diphtheria toxoid, and acellular pertussis vaccine, adsorbed Dr. Kaylan Fajardo Work Phone: [facility] Payers Date Payer Category Payer Self-pay [id number] 2022 Unknown [id number] 2022 Medicare [id number] 2022 Medicare MEDICARE MEDICAR E PART A AND B [id number] 2022-Present [address] [place] [address] [id number] 2020 Unknown [id number] 2020 Unknown [id number] 2020 Unknown [id number] .[id number] 2020 Unknown [id number] 2019 Unknown [place] [facility] [id number]-Present [id number] 2019 Unknown [place]THKEN[place] BC[place] [facility] [place] [id number] 2019-Present [id number] 2019 Unknown [id number] 2016 Private Health Insurance 2007 Private Health Insurance [id number] 2007 Private Health Insurance [id number] 1957 Unknown [id number] [id number] .903 1957 Unknown [id number] 2.16.840.1.697439.3.579.2 .903 1957 Unknown [id number] 2.16.840.1.834135.3.579.2 .903 1957 Unknown [id number] 2.16.840.1.493904.3.579.2 .903 1957 Unknown [id number] 2.16.840.1.398636.3.579.2 .903 1957 Unknown [id number] 2.16.840.1.262849.3.579.2 .903 1957 Unknown [id number] 2.16.840.1.634551.3.579.2 .903 1957 Unknown [id number] 2.16.840.1.001405.3.579.2 .1244 1957 Unknown [id number] 2.16.840.1.911764.3.579.2 .1244 1957 Unknown [id number] 2.16.840.1.466351.3.579.[address] [facility] PACKAGE PLAN [id number] Unknown [id number] 2.16.840.1.485862.3.579.2 .462 Unknown [id number] 2.16.840.1.935617.3.579.2 .462 Unknown [id number] 2.16.840.1.953140.3.579.2 .462 Unknown [id number] 2.16.840.1.524728.3.579.2 .462 Unknown [id number] 2.16.840.1.622405.3.579.2 .462 Unknown [id number] [id number] .462 Social History Date Type Detail Facility Start: 05-15-2018 End: 05-06-2024 Tobacco smoking status NHIS Never smoker [facility] Start: 05-15-2018 End: 03-23-2020 History SDOH Alcohol Frequency 1 [facility] Start: 1955 Sex Assigned At Not on file [facility] Start: 11-20-2018 End: 01-30-2023 Alcohol intake Lifetime non-drinker (finding) [facility] Start: 01-20-2023 End: 01-30-2023 Exposure to SARS-CoV-2 (event) Not sure [facility] Start: 03-23-2020 End: 07-26-2022 Tobacco use and exposure Never used [facility] Start: 05-12-2021 End: 12-26-2022 Tobacco smoking status NHIS Unknown if ever smoked [facility] Start: 01-22-2019 Non-smoker [facility] Start: 1955 Sex Assigned At Male [facility] Start: 01-30-2023 History of Social function [facility] Work Phone: Start: 01-30-2023 Tobacco use panel [facility] Work Phone: Sexual Orientation Heterosexual (finding) [facility] NEGATED: Highlighted row - - [facility] Work Phone: Medical Equipment Procedure Code Equipment Code Equipment Origin al Text Equipment Identifier Dates Use as directed 4 times per day E10.9 . [id number] Start: 06-17-2019 End: 10-16-2020 Use as directed 4 times per day E10.9 . [id number] Start: 10-19-2020 by Miscellaneous route 4 (four) times a day before meals and nightly . [id number] Start: 03-19-2021 CLIP,SUNITA MICHELLE [employer] Sta rt: 01-30-2019 CLIP,SUNITA TRIPP FDA Sta rt: 01-30-2019 CLIP,SUNITA RESENDEZ [employer] FDA St art: 01-30-2019 CLIP,SUNITA TRIPP FDA Sta rt: 01-30-2019 CLIP,SUNTIA TRIPP FDA Sta rt: 01-30-2019 CLIP,SUNITA TRIPP FDA St art: 01-30-2019 CLIP,SUNITA TRIPP FDA Sta rt: 01-30-2019 CLIP,SUNITA TRIPP FDA Sta rt: 01-30-2019 CLIP,SUNITA RESENDEZ [employer] FDA St art: 01-30-2019 CLIP,SUNITA TRIPP FDA Sta rt: 01-30-2019 CLIP,SUNITA TRIPP FDA Sta rt: 01-30-2019 CLIP,SUNITA RESENDEZ [employer] FDA St art: 01-30-2019 Blood Sugar Diag nostic (True Metrix Glucose Test Strip) strip Start: 06-15-2022 Lancets (Easy To uch Lancets) 30 gauge misc Start: 06-15-2022 Blood Sugar Diag nostic (Accu-Chek Guide Test Strips) strip Start: 06-08-2022 End: 06-15-2022 CLIP,SUNITA DE PAZ FDA Sta rt: 01-30-2019 CLIP,SUNITA TRIPP FDA Sta rt: 01-30-2019 CLIP,SUNITA RESENDEZ [employer] FDA St art: 01-30-2019 Blood Sugar Diag nostic (True Metrix Glucose Test Strip) strip Start: 06-15-2022 Lancets (Easy To uch Lancets) 30 gauge misc Start: 06-15-2022 Blood Sugar Diag nostic (Accu-Chek Guide Test Strips) strip Start: 06-08-2022 End: 06-15-2022 CLIP,SUNITA TRIPP FDA Sta rt: 01-30-2019 SUNITA HERNANDEZ [facility] Sta rt: 01-30-2019 [facility]: 01-30-2019 Blood Sugar Diag nostic (True Metrix Glucose Test Strip) strip Start: 06-15-2022 Lancets (Easy To uch Lancets) 30 gauge misc Start: 06-15-2022 Blood Sugar Diag nostic (Accu-Chek Guide Test Strips) strip Start: 06-08-2022 End: 06-15-2022 SUNITA HERNANDEZ [facility] Sta rt: 01-30-2019 SUNITA HERNANDEZ [facility] Sta rt: 01-30-2019 SUNITA HERNANDEZ [facility] St art: 01-30-2019 Blood Sugar Diag nostic (True Metrix Glucose Test Strip) strip Start: 06-15-2022 Lancets (Easy To uch Lancets) 30 gauge misc Start: 06-15-2022 Blood Sugar Diag nostic (Accu-Chek Guide Test Strips) strip Start: 06-08-2022 End: 06-15-2022 by Miscellaneous route 4 (four) times a day before meals and nightly . [id number] Start: 03-19-2021 use to test bloo d sugar FOUR TIMES DAILY [id number] Start: 06-15-2022 SUNITA HERNANDEZ [facility] Sta rt: 01-30-2019 SUNITA HERNANDEZ [facility] Sta rt: 01-30-2019 SUNITA HERNANDEZ [facility] St art: 01-30-2019 Blood Sugar Diag nostic (True Metrix Glucose Test Strip) strip Start: 09-04-2023 Blood Sugar Diag nostic (Accu-Chek Guide Test Strips) strip Start: 06-08-2022 End: 06-15-2022 Blood Sugar Diag nostic (True Metrix Glucose Test Strip) strip Start: 06-15-2022 End: 09-04-2023 Lancets (Easy To uch Lancets) 30 gauge misc Start: 06-15-2022 End: 10-02-2023 Functional Status Date Assessment Result Facility NEGATED: Highlighted row Functional performance Functional status health issues are not documented Disease [facility] Work Phone: Mental Status Date Assessment Result Facility NEGATED: Highlighted row Cognitive function [Interpretation] Cognitive status health issues are not documented [facility] Work Phone: Clinical Notes 09-21-2020 to 04-24-2024 Note Date & Type Note Facility 04-24-2024 Evaluation note Diagnosis Onset Date Resolution Diabetes mellitus type 1, controlled, without complications chronic April 24, 2 8:05am Hypertension chronic April 8:05am Insulin pump titration chronic Fe bruary 2024 8:05am Microalbuminuria chronic April 24, 2024 8:05am Mixed hyperlipidemia chronic Febr uary 2024 8:05am Presence of insulin pump chronic April 24, 2024 8:05am Diabetes mellitus type 1, controlled, without complications chronic May 06, 2024 7:25am Mixed hyperlipidemia chronic Fransico 2024 7:25am Immunization declined noneactive [facility] 2024 7:25am Annual wellness visit noneactive [facility] 2024 7:25am History of prostate cancer noneactive May 06, 2024 7:25am Essential hypertension noneactive [facility] 2024 7:25am History of anemia noneactive May 062024 7:25am [facility] Work Phone: [phone] 218-132211-27-2023 History of Present illness Narrative* Kaylan Fajardo MD - 01/30/2023 8:15 AM EST Subjective Reason for Visit: Gutierrez Lange is an 67 y.o. male here for a Medicare Wellness visit. Past Medical, Surgical, and Family History reviewed and updated in chart. Reviewed all medications by prescribing practitioner or clinical pharmacist (such as prescriptions,OTCs, herbal therapies and supplements) and documented in the medical record. HPI F/U ON D,1. HAS ENDO F/U Q 3-6 MONTHS FOR DM1 AND IS ON INSULIN PUMP. HAS F/U WITH UROLOGIST TOO. MEDICARE WELLNESS EXAM (INITIAL) . Patient Care Team: Kaylan Fajardo MD as PCP - General Kaylan Fajardo MD as PCP - MSSP ACO Attributed Provider Review of Systems Constitutional: Negative for chills and fever. HENT: Negative. Negative for congestion, postnasal drip and rhinorrhea. Eyes: Negative. Negative for visual disturbance. Respiratory: Negative for cough, shortness of breath and wheezing. Cardiovascular: Negative. Negative for chest pain, palpitations and leg swelling. Gastrointestinal: Negative. Negative for abdominal distention, abdominal pain, constipation, diarrhea, nausea and vomiting. Endocrine: Negative. Genitourinary: Negative for dysuria and urgency. Musculoskeletal: Negative. Negative for back pain. Skin: Negative. Negative for rash. Allergic/Immunologic: Negative for immunocompromised state. Neurological: Negative. Negative for dizziness, weakness, light-headedness and headaches. Psychiatric/Behavioral: Negative. Negative for agitation. Objective Vitals: BP 124/72 (BP Location: Left arm, Patient Position: Sitting) Pulse 66 Ht 1.727 m (5' 8) Wt 74.4 kg (164 lb) BMI 24.94 kg/m Physical Exam Constitutional: General: He is not in acute distress. HENT: Head: Normocephalic. Nose: Nose normal. Mouth/Throat: Mouth: Mucous membranes are moist. Eyes: Conjunctiva/sclera: Conjunctivae normal. Pupils: Pupils are equal, round, and reactive to light. Cardiovascular: Rate and Rhythm: Normal rate and regular rhythm. Pulses: Normal pulses. Heart sounds: Normal heart sounds. Pulmonary: Effort: No respiratory distress. Breath sounds: No wheezing. Chest: Chest wall: No tenderness. Abdominal: General: Abdomen is flat. Bowel sounds are normal. Palpations: Abdomen is soft. Tenderness: There is no abdominal tenderness. Musculoskeletal: General: No tenderness. Normal range of motion. Cervical back: Normal range of motion. Lymphadenopathy: Cervical: No cervical adenopathy. Skin: General: Skin is warm and dry. Findings: No rash. Neurological: General: No focal deficit present. Mental Status: He is alert. Mental status is at baseline. Psychiatric: Mood and Affect: Mood normal. Behavior: Behavior normal. Assessment/Plan 1. Encounter for vaccination zoster vaccine-recombinant adjuvanted (Shingrix, PF,) 50 mcg/0.5 mL vaccine pneumoc 20-erich conj-dip cr,PF, (Prevnar 20, PF,) 0.5 mL vaccine 2. Type 1 diabetes mellitus without complication ([facility]) Comprehensive Metabolic Panel Hemoglobin A1C 3. Mixed hyperlipidemia Lipid Panel 4. Iron deficiency Ferritin Iron and TIBC 5. Anemia, unspecified type CBC and Auto Differential 1800 ML ADA HGA1C GOAL LESS THAN 7 LOSE WT EXERCISE DAILY ADVISED TO HAVE LOW FAT AND LOW CALORIE DIET AND TO LOOSE WEIGHT, DAILY EXERCISE. PT REFUSED FLU VACCINE .PER PT HE'S UP TO DATE WITH YEARLY FOOT EXAM AND DIABETIC EYE EXAM ,BUT DOESN'T KNOW THE EXACT DATE. 6 mon documented in this [facility] Work Phone: [phone] 734-610401-14-2022 History of Present illness Narrative* Krunal Wilson, [employer]ECTIVE [employer] - 03/19/2021 2:46 PM EST Images from the original note were not included. Patient ID: Gutierrez Lange is a 65 y.o. male 1955 Subjective: Gutierrez Lange presents management for Type 1 diabetes Patient has had diabetes for 50 years, diagnosed at 15 years old. Patient has taken Insulin for 50 years HPI Patient is a 65-year-old male with type 1 diabetes who presents for a 6 month follow up appointment. He currently utilizes a minimed 770 pump in auto mode with enlite sensor. Patient is feeling well and brings no concerns or complaints to his appointment today. His blood sugar control continues to be optimal at most times. Current Outpatient Medications Medication Sig Dispense Refill aspirin 325 MG tablet Take 325 mg by mouth daily . blood sugar diagnostic (Contour Next Test Strips) strips Use as directed 4 times per day E10.9 . 400 each 3 ferrous gluconate (FERGON) 324 MG tablet Take 324 mg by mouth 2 (two) times a day . insulin aspart U-100 (NovoLOG) 100 unit/mL injection Use via insulin pump approx 100 units daily. .90 mL 3 multivitamin Chew Chew and Swallow 1 tablet daily . No current facility-administered medications for this visit. Review of Systems: Review of Systems Constitutional: Negative for activity change, appetite change, fatigue and unexpected weight change. HENT: Negative for mouth sores. Eyes: Negative for visual disturbance. Respiratory: Negative for cough and shortness of breath. Cardiovascular: Negative for chest pain, palpitations and leg swelling. Gastrointestinal: Negative for abdominal pain, constipation, diarrhea, nausea and vomiting. Endocrine: Negative for polydipsia, polyphagia and polyuria. Genitourinary: Negative for difficulty urinating, dysuria and frequency. Musculoskeletal: Negative for arthralgias. Skin: Negative for rash and wound. Neurological: Negative for weakness and numbness. Psychiatric/Behavioral: Negative for confusion and sleep disturbance. The patient is not nervous/anxious. The following portions of the patient's history were reviewed and updated as appropriate: allergies, current medications, past family history, past medical history, past social history, past surgicalhistory and problem list. Objective: BP 124/68 (BP Location: Right arm, Patient Position: Sitting, BP Cuff Size: Adult) Pulse 71 Ht 5' 8 Wt 72.2 kg (159 lb 1.6 oz) BMI 24.19 kg/m Wt Readings from Last 3 Encounters: 03/19/21 72.2 kg (159 lb 1.6 oz) 09/21/20 71.8 kg (158 lb 6.4 oz) 03/23/20 74.3 kg (163 lb 11.2 oz) Physical Exam: General: alert, appears stated age and cooperative Eyes: conjunctivae/corneas clear. PERRL, EOM's intact. Neck: no adenopathy, supple, symmetrical, trachea midline. Thyroid: No thyromegaly appreciated Lung: clear to auscultation bilaterally Heart: regular rate and rhythm, S1, S2 normal, no murmur, click, rub or gallop Extremities: extremities normal, atraumatic, no cyanosis or edema Feet: Dry skin, Patient Refused. Monofilament exam Normal , bilateral lower extremities. Neuro: normal without focal findings, mental status, speech normal, alert and oriented x3 and SHAYY Lab Review 03/16/21 *labs reviewed 03/19/21 Hgb A1c: 6.2% Creat: 0.91; eGFR: 90 AST: 23; ALT: 35 K: 4.3 09/10/20 Hgb A1c: 6.3% Creat: 0.80; eGFR: >60 AST: 26; ALT: 43 K: 4.1 CBC: WBC:7.20; Hgb: 15.5; Hct: 45.9; Plt: 292 Tchol: 198; Tri ; HDL: 44 ; LDL: 128 TSH: 1.64 ; FreeT4: 0.94 Microalbumin/creatinine Ratio: Unable to calculate. 03/20/20 Hgb A1c: 7.0% Creat: 0.95; eGFR: 85 AST: 24; ALT: 31 K: 4.1 09/12/19 Hgb A1c: 6.9% Creat: 0.82; eGFR: 101 AST: 19; ALT: 29 K: 3.7 CBC: WBC:6.0; Hgb: 12.5; Hct: 39.7; Plt: 280 Tchol: 185; Tri ; HDL: 47 ; LDL: 121 TSH: 1.42 ; FreeT4: 0.93 Microalbumin/creatinine Ratio: 5.5 03/15/19 Hgb A1c: 7.4% Creat: 0.95; eGFR: 85 AST: 23; ALT: 34 K: 4.1 Tchol: 187; Tri ; HDL: 44 ; LDL: 122 08/14/2018 Hemoglobin A1c 7.0% Creatinine 0.6, estimated GFR 97, K4.2 AST 19, ALT 26 T cholesterol 188, TG 78, HDL 44, LDL 128 TSH 1.53, FT4--0.90 CBC: H/H 13.0/40.6, WBC 6.4, platelets 335,000 Microalbumin/creatinine ratio: Undetectable 04/12/18 Hemoglobin A1c 7.3% 03/30/18 Creatinine 1.14, estimated GFR 70 K4.3 01/01/18 Creatinine 0.86, estimated GFR 96 AST 34, ALT 62 K4.2 Microalbumin/creatinine ratio: 4.6 08/28/17 Total cholesterol 180, TG 123, HDL 41, LDL 114 Assessment/Plan: Dx: 1. Type 1 diabetes mellitus without complication (HCC) Ambulatory referral to Endocrinology 2. Mixed hyperlipidemia Type 1 diabetes, under good control Currently managed with: No oral hypoglycemic medications Insulin Pump Basal Rates: 0000 0600: 1.000 0600 1200: 0.85 1200 1630: 0.875 1600 2030: 1.00 2030 2400: 1.00 ISF: 0000: 1:75 2030: 1:120 I/C ratio 0000:1:15 0500: 1:10 1030: 1:17 1630: 1:15 Most recent Hemoglobin A1C= 6.2 03/27. 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 yes - has a couple per week. Patient is aware of low BGs. Symptoms include sweating, fatigue, and blurry vision. Pt states he starts to feel these symptoms around 70. Patient states historically his BG has the ability to drop very quickly, MEDTRONIC sensor helping withsuspend before low. 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 no Peripheral Neuropathy: Negative Denies symptoms associated with neuropathy (numbness and/or tingling) Autonomic Neuropathy: Positive Has had Hypoglycemia unawareness. Senses low BG at 70 mg/dl with assistance of CGM. . Hyperlipidemia: Positive Currently taking: Unable to tolerate statins, reports significant side effects several statin drugs. Started Zetia 08/22, stopped 12/22 secondary to increased gas and loose stools. 09/23: Tchol: 198; Tri ; HDL: 44 ; LDL: 128 Plan: Continue off meds. Check labs prior to follow up. Hypertension: Negative . Currently taking: Patient on no antihypertensives BP: 124/68 Cardiac: Negative Experiencing chest pain No . Experiencing shortness of breath No History of No history of CAD Vascular: Negative History of None Feet: Last foot exam: 03/19/21 Follows with Podiatry: No History of foot ulceration: No History of amputation: No Thyroid: Negative TSH 1.53, FT4--0.90 on 08/14/2018 Other: Prostate CA: Follows with Urologist in [place]. CA has been stable for last 3 years. Had a biopsy 07/22 to assessprogression. Underwent prostatectomy January 2019 Plan: 1. Rx changes: none Basal Rates (u/hr): 0000 0600: 1.000 0600 1200: 0.85 1200 1630: 0.875 1600 2030: 1.00 2030 2400: 1.00 ISF: 0000: 1:75 2030: 1:120 I/C ratio 0000:1:15 0500: 1:10 1030: 1:17 1630: 1:15 2. Education: Reviewed ABCs of diabetes management (respective goals in parentheses): A1C (7.0-8.0), blood pressure (<130/80), and cholesterol (LDL <100). 3. Compliance at present is estimated to be excellent. Efforts to improve compliance (if necessary)will be directed at regular blood sugar monitorin-5 times daily. 4. Follow up: 6 months 5. Record blood sugar readings as instructed. Call if BG consistently <70 or >250. [phone] Patient has been checking blood glucoses 4 times daily for the past 90 days. Patient needs to continue checking blood glucoses 4 times daily. Blood glucose readings are used to adjust medication or insulin doses for meals, monitor dietary compliance, and adjust for high or low blood glucoses by patient on a daily basis. Blood glucose readings are reviewed at office visits for adjustment in medication regimen and assistance with dietary management, and other self- management issues including exercise, etc. Prognosis: Good. Duration of need for diabetes testing equipment: Permanent #150 strips/month prescribed. Mr. Lange would benefit from Continuing with [employer] continuous glucose monitoring system. Patient has had Type 1 diabetes for 50 years. Complications include diabetic neuropathy and autonomic neuropathy with hypoglycemic unawareness Patient is currently managed with: insulin pump Patient has been checking their blood sugar 4+ times per day and utilizing auto mode with adjustments in basal rate to avoid hypoglycemia. Patient is positive for a history of reoccurring hypoglycemia <50. Patient is predisposed to hypoglycemia, and has had 5 hypoglycemic episodes in the last 14 days. Patient's most recent Hgb A1c was 6.2% on 03/16/20 Patient's HGb is <6.0% or >8.5% Patient is positive for a history of hypoglycemic unawareness Patient has inadequate control despite compliance with multiple alterations in insulin doses/medication regimen. 6. Bring blood sugar meter to follow up appointment. Orders Placed This Encounter Procedures Ambulatory referral to Endocrinology Electronically Signed by: Krunal Wilson CNP 03/19/21 2:59 PM documented in this [id number] History of Present illness Narrative* Krunal Wilson CNP - 09/21/2020 2:19 PM EDT Images from the original note were not included. Patient ID: Gutierrez Lange is a 65 y.o. male 1955 Subjective: Gutierrez Lange presents management for Type 1 diabetes Patient has had diabetes for 50 years, diagnosed at 15 years old. Patient has taken Insulin for 50 years HPI Patient is a 65-year-old male with type 1 diabetes who presents for a 3 month follow up appointment. He currently utilizes a [employer]Cloud Sherpas 770 pump in auto mode. Patient is feeling well and brings no concerns or complaints to his appointment today. His blood sugar control continues to be optimal at most times. Current Outpatient Medications Medication Sig Dispense Refill aspirin 325 MG tablet Take 325 mg by mouth daily . blood sugar diagnostic (Contour Next Test Strips) strips Use as directed 4 times per day E10.9 . 400 each 3 ferrous gluconate (FERGON) 324 MG tablet Take 324 mg by mouth 2 (two) times a day . insulin aspart U-100 (NovoLOG) 100 unit/mL injection Use via insulin pump approx 100 units daily. .90 mL 3 multivitamin Chew Chew and Swallow 1 tablet daily . No current facility-administered medications for this visit. Review of Systems: Review of Systems Constitutional: Negative for activity change, appetite change, fatigue and unexpected weight change. HENT: Negative for mouth sores. Eyes: Negative for visual disturbance. Respiratory: Negative for cough and shortness of breath. Cardiovascular: Negative for chest pain, palpitations and leg swelling. Gastrointestinal: Negative for abdominal pain, constipation, diarrhea, nausea and vomiting. Endocrine: Negative for polydipsia, polyphagia and polyuria. Genitourinary: Negative for difficulty urinating, dysuria and frequency. Musculoskeletal: Negative for arthralgias. Skin: Negative for rash and wound. Neurological: Negative for weakness and numbness. Psychiatric/Behavioral: Negative for confusion and sleep disturbance. The patient is not nervous/anxious. The following portions of the patient's history were reviewed and updated as appropriate: allergies, current medications, past family history, past medical history, past social history, past surgicalhistory and problem list. Objective: BP 131/69 (BP Location: Right arm, Patient Position: Sitting, BP Cuff Size: Adult) Pulse 64 Ht 5' 8 Wt 71.8 kg (158 lb 6.4 oz) BMI 24.08 kg/m Wt Readings from Last 3 Encounters: 09/21/20 71.8 kg (158 lb 6.4 oz) 03/23/20 74.3 kg (163 lb 11.2 oz) 09/16/19 73.5 kg (162 lb) Physical Exam: General: alert, appears stated age and cooperative Eyes: conjunctivae/corneas clear. PERRL, EOM's intact. Neck: no adenopathy, supple, symmetrical, trachea midline. Thyroid: No thyromegaly appreciated Lung: clear to auscultation bilaterally Heart: regular rate and rhythm, S1, S2 normal, no murmur, click, rub or gallop Extremities: extremities normal, atraumatic, no cyanosis or edema Feet: Dry skin, Patient Refused. Monofilament exam Normal , bilateral lower extremities. Neuro: normal without focal findings, mental status, speech normal, alert and oriented x3 and SHAYY Lab Review 09/10/20 *labs reviewed 09/21/20 Hgb A1c: 6.3% Creat: 0.80; eGFR: >60 AST: 26; ALT: 43 K: 4.1 CBC: WBC:7.20; Hgb: 15.5; Hct: 45.9; Plt: 292 Tchol: 198; Tri ; HDL: 44 ; LDL: 128 TSH: 1.64 ; FreeT4: 0.94 Microalbumin/creatinine Ratio: Unable to calculate. 03/20/20 Hgb A1c: 7.0% Creat: 0.95; eGFR: 85 AST: 24; ALT: 31 K: 4.1 09/12/19 Hgb A1c: 6.9% Creat: 0.82; eGFR: 101 AST: 19; ALT: 29 K: 3.7 CBC: WBC:6.0; Hgb: 12.5; Hct: 39.7; Plt: 280 Tchol: 185; Tri ; HDL: 47 ; LDL: 121 TSH: 1.42 ; FreeT4: 0.93 Microalbumin/creatinine Ratio: 5.5 03/15/19 Hgb A1c: 7.4% Creat: 0.95; eGFR: 85 AST: 23; ALT: 34 K: 4.1 Tchol: 187; Tri ; HDL: 44 ; LDL: 122 08/14/2018 Hemoglobin A1c 7.0% Creatinine 0.6, estimated GFR 97, K4.2 AST 19, ALT 26 T cholesterol 188, TG 78, HDL 44, LDL 128 TSH 1.53, FT4--0.90 CBC: H/H 13.0/40.6, WBC 6.4, platelets 335,000 Microalbumin/creatinine ratio: Undetectable 04/12/18 Hemoglobin A1c 7.3% 03/30/18 Creatinine 1.14, estimated GFR 70 K4.3 01/01/18 Creatinine 0.86, estimated GFR 96 AST 34, ALT 62 K4.2 Microalbumin/creatinine ratio: 4.6 08/28/17 Total cholesterol 180, TG 123, HDL 41, LDL 114 Assessment/Plan: Dx: 1. Type 1 diabetes mellitus without complication (HCC) 2. Mixed hyperlipidemia Type 1 diabetes, under good control Currently managed with: No oral hypoglycemic medications Insulin Pump Basal Rates: 0000 0600: 1.000 0600 1200: 0.85 1200 1630: 0.875 1600 2030: 1.00 2030 2400: 1.00 ISF: 0000: 1:75 2030: 1:120 I/C ratio 0000:1:15 0500: 1:10 1030: 1:17 1630: 1:15 Most recent Hemoglobin A1C= 6.3 09/23. 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 yes - has a couple per week. Patient is aware of low BGs. Symptoms include sweating, fatigue, and blurry vision. Pt states he starts to feel these symptoms around 70. Patient states historically his BG has the ability to drop very quickly, MEDTR[employer] sensor helping withsuspend before low. 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 DM Complication Review: Retinopathy: Negative - no signs of SWATCH CLERK Exam within last 12 months: yes Date: 08/23, has one annually Director Design/Jewelry Model Maker: [facility] Other Ophthalmologic Conditions: None known Nephropathy: Negative Creat: 0.80; eGFR: >60 09/23 Microlbumin/creat ratio: Undetectable on 08/14/2018 Is patient on MEÑO inhibitor or angiotensin II receptor curt? no Peripheral Neuropathy: Negative Denies symptoms associated with neuropathy (numbness and/or tingling) Autonomic Neuropathy: Positive Has had Hypoglycemia unawareness. Senses low BG at 70 mg/dl with assistance of CGM. . Hyperlipidemia: Positive Currently taking: Unable to tolerate statins, reports significant side effects several statin drugs. Started Zetia 08/22, stopped 12/22 secondary to increased gas and loose stools. 09/12/19: Tchol: 198; Tri ; HDL: 44 ; LDL: 128 Plan: Continue off meds. Check labs prior to follow up. Hypertension: Negative . Currently taking: Patient on no antihypertensives BP: 131/69 Cardiac: Negative Experiencing chest pain No . Experiencing shortness of breath No History of No history of CAD Vascular: Negative History of None Feet: Last foot exam: 09/21/20 Follows with Podiatry: No History of foot ulceration: No History of amputation: No Thyroid: Negative TSH 1.53, FT4--0.90 on 08/14/2018 Other: Prostate CA: Follows with Urologist in [place]. CA has been stable for last 3 years. Had a biopsy 07/22 to assessprogression. Underwent prostatectomy January 2019 Plan: 1. Rx changes: none Basal Rates (u/hr): 0000 0600: 1.000 0600 1200: 0.85 1200 1630: 0.875 1600 2030: 1.00 2030 2400: 1.00 ISF: 0000: 1:75 2030: 1:120 I/C ratio 0000:1:15 0500: 1:10 1030: 1:17 1630: 1:15 2. Education: Reviewed ABCs of diabetes management (respective goals in parentheses): A1C (7.0-8.0), blood pressure (<130/80), and cholesterol (LDL <100). 3. Compliance at present is estimated to be excellent. Efforts to improve compliance (if necessary)will be directed at regular blood sugar monitorin-5 times daily. 4. Follow up: 6 months 5. Record blood sugar readings as instructed. Call if BG consistently <70 or >250. [phone] Patient has been checking blood glucoses 4 times daily for the past 90 days. Patient needs to continue checking blood glucoses 4 times daily. Blood glucose readings are used to adjust medication or insulin doses for meals, monitor dietary compliance, and adjust for high or low blood glucoses by patient on a daily basis. Blood glucose readings are reviewed at office visits for adjustment in medication regimen and assistance with dietary management, and other self- management issues including exercise, etc. Prognosis: Good. Duration of need for diabetes testing equipment: Permanent #150 strips/month prescribed. Mr. Lange would benefit from Continuing with [employer] continuous glucose monitoring system. Patient has had Type 1 diabetes for 50 years. Complications include diabetic neuropathy and autonomic neuropathy with hypoglycemic unawareness Patient is currently managed with: insulin pump Patient has been checking their blood sugar 4+ times per day and utilizing auto mode with adjustments in basal rate to avoid hypoglycemia. Patient is positive for a history of reoccurring hypoglycemia <50. Patient is predisposed to hypoglycemia, and has had 5 hypoglycemic episodes in the last 14 days. Patient's most recent Hgb A1c was 6.3% on 09/23 Patient's HGb is <6.0% or >8.5% Patient is positive for a history of hypoglycemic unawareness Patient has inadequate control despite compliance with multiple alterations in insulin doses/medication regimen. 6. Bring blood sugar meter to follow up appointment. Orders Placed This Encounter Procedures Comprehensive Metabolic Panel Hemoglobin A1c Electronically Signed by: Krunal Wilson CNP 09/21/20 3:44 PM documented in this [id number] History of Present illness Narrative* Krunal Wilson CNP - 09/21/2020 2:19 PM EDT Images from the original note were not included. Patient ID: Gutierrez Lange is a 65 y.o. male 1955 Subjective: Gutierrez Lange presents management for Type 1 diabetes Patient has had diabetes for 50 years, diagnosed at 15 years old. Patient has taken Insulin for 50 years HPI Patient is a 65-year-old male with type 1 diabetes who presents for a 3 month follow up appointment. He currently utilizes a minimed 770 pump in auto mode with enlite sensor. Patient is feeling well and brings no concerns or complaints to his appointment today. His blood sugar control continues to be optimal at most times. Current Outpatient Medications Medication Sig Dispense Refill aspirin 325 MG tablet Take 325 mg by mouth daily . blood sugar diagnostic (Contour Next Test Strips) strips Use as directed 4 times per day E10.9 . 400 each 3 ferrous gluconate (FERGON) 324 MG tablet Take 324 mg by mouth 2 (two) times a day . insulin aspart U-100 (NovoLOG) 100 unit/mL injection Use via insulin pump approx 100 units daily. .90 mL 3 multivitamin Chew Chew and Swallow 1 tablet daily . No current facility-administered medications for this visit. Review of Systems: Review of Systems Constitutional: Negative for activity change, appetite change, fatigue and unexpected weight change. HENT: Negative for mouth sores. Eyes: Negative for visual disturbance. Respiratory: Negative for cough and shortness of breath. Cardiovascular: Negative for chest pain, palpitations and leg swelling. Gastrointestinal: Negative for abdominal pain, constipation, diarrhea, nausea and vomiting. Endocrine: Negative for polydipsia, polyphagia and polyuria. Genitourinary: Negative for difficulty urinating, dysuria and frequency. Musculoskeletal: Negative for arthralgias. Skin: Negative for rash and wound. Neurological: Negative for weakness and numbness. Psychiatric/Behavioral: Negative for confusion and sleep disturbance. The patient is not nervous/anxious. The following portions of the patient's history were reviewed and updated as appropriate: allergies, current medications, past family history, past medical history, past social history, past surgicalhistory and problem list. Objective: BP 131/69 (BP Location: Right arm, Patient Position: Sitting, BP Cuff Size: Adult) Pulse 64 Ht 5' 8 Wt 71.8 kg (158 lb 6.4 oz) BMI 24.08 kg/m Wt Readings from Last 3 Encounters: 09/21/20 71.8 kg (158 lb 6.4 oz) 03/23/20 74.3 kg (163 lb 11.2 oz) 09/16/19 73.5 kg (162 lb) Physical Exam: General: alert, appears stated age and cooperative Eyes: conjunctivae/corneas clear. PERRL, EOM's intact. Neck: no adenopathy, supple, symmetrical, trachea midline. Thyroid: No thyromegaly appreciated Lung: clear to auscultation bilaterally Heart: regular rate and rhythm, S1, S2 normal, no murmur, click, rub or gallop Extremities: extremities normal, atraumatic, no cyanosis or edema Feet: Dry skin, Patient Refused. Monofilament exam Normal , bilateral lower extremities. Neuro: normal without focal findings, mental status, speech normal, alert and oriented x3 and SHAYY Lab Review 09/10/20 *labs reviewed 09/21/20 Hgb A1c: 6.3% Creat: 0.80; eGFR: >60 AST: 26; ALT: 43 K: 4.1 CBC: WBC:7.20; Hgb: 15.5; Hct: 45.9; Plt: 292 Tchol: 198; Tri ; HDL: 44 ; LDL: 128 TSH: 1.64 ; FreeT4: 0.94 Microalbumin/creatinine Ratio: Unable to calculate. 03/20/20 Hgb A1c: 7.0% Creat: 0.95; eGFR: 85 AST: 24; ALT: 31 K: 4.1 09/12/19 Hgb A1c: 6.9% Creat: 0.82; eGFR: 101 AST: 19; ALT: 29 K: 3.7 CBC: WBC:6.0; Hgb: 12.5; Hct: 39.7; Plt: 280 Tchol: 185; Tri ; HDL: 47 ; LDL: 121 TSH: 1.42 ; FreeT4: 0.93 Microalbumin/creatinine Ratio: 5.5 03/15/19 Hgb A1c: 7.4% Creat: 0.95; eGFR: 85 AST: 23; ALT: 34 K: 4.1 Tchol: 187; Tri ; HDL: 44 ; LDL: 122 08/14/2018 Hemoglobin A1c 7.0% Creatinine 0.6, estimated GFR 97, K4.2 AST 19, ALT 26 T cholesterol 188, TG 78, HDL 44, LDL 128 TSH 1.53, FT4--0.90 CBC: H/H 13.0/40.6, WBC 6.4, platelets 335,000 Microalbumin/creatinine ratio: Undetectable 04/12/18 Hemoglobin A1c 7.3% 03/30/18 Creatinine 1.14, estimated GFR 70 K4.3 01/01/18 Creatinine 0.86, estimated GFR 96 AST 34, ALT 62 K4.2 Microalbumin/creatinine ratio: 4.6 08/28/17 Total cholesterol 180, TG 123, HDL 41, LDL 114 Assessment/Plan: Dx: 1. Type 1 diabetes mellitus without complication (HCC) 2. Mixed hyperlipidemia Type 1 diabetes, under good control Currently managed with: No oral hypoglycemic medications Insulin Pump Basal Rates: 0000 0600: 1.000 0600 1200: 0.85 1200 1630: 0.875 1600 2030: 1.00 2030 2400: 1.00 ISF: 0000: 1:75 2030: 1:120 I/C ratio 0000:1:15 0500: 1:10 1030: 1:17 1630: 1:15 Most recent Hemoglobin A1C= 6.3 09/23. 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 yes - has a couple per week. Patient is aware of low BGs. Symptoms include sweating, fatigue, and blurry vision. Pt states he starts to feel these symptoms around 70. Patient states historically his BG has the ability to drop very quickly, [employer] sensor helping withsuspend before low. 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 DM Complication Review: Retinopathy: Negative - no signs of SWATCH CLERK Exam within last 12 months: yes Date: 08/23, has one annually Director Design/Jewelry Model Maker: [facility] Other Ophthalmologic Conditions: None known Nephropathy: Negative Creat: 0.80; eGFR: >60 09/23 Microlbumin/creat ratio: Undetectable on 08/14/2018 Is patient on MEÑO inhibitor or angiotensin II receptor curt? no Peripheral Neuropathy: Negative Denies symptoms associated with neuropathy (numbness and/or tingling) Autonomic Neuropathy: Positive Has had Hypoglycemia unawareness. Senses low BG at 70 mg/dl with assistance of CGM. . Hyperlipidemia: Positive Currently taking: Unable to tolerate statins, reports significant side effects several statin drugs. Started Zetia 08/22, stopped 12/22 secondary to increased gas and loose stools. 09/12/19: Tchol: 198; Tri ; HDL: 44 ; LDL: 128 Plan: Continue off meds. Check labs prior to follow up. Hypertension: Negative . Currently taking: Patient on no antihypertensives BP: 131/69 Cardiac: Negative Experiencing chest pain No . Experiencing shortness of breath No History of No history of CAD Vascular: Negative History of None Feet: Last foot exam: 09/21/20 Follows with Podiatry: No History of foot ulceration: No History of amputation: No Thyroid: Negative TSH 1.53, FT4--0.90 on 08/14/2018 Other: Prostate CA: Follows with Urologist in [place]. CA has been stable for last 3 years. Had a biopsy 07/22 to assessprogression. Underwent prostatectomy January 2019 Plan: 1. Rx changes: none Basal Rates (u/hr): 0000 0600: 1.000 0600 1200: 0.85 1200 1630: 0.875 1600 2030: 1.00 2030 2400: 1.00 ISF: 0000: 1:75 2030: 1:120 I/C ratio 0000:1:15 0500: 1:10 1030: 1:17 1630: 1:15 2. Education: Reviewed ABCs of diabetes management (respective goals in parentheses): A1C (7.0-8.0), blood pressure (<130/80), and cholesterol (LDL <100). 3. Compliance at present is estimated to be excellent. Efforts to improve compliance (if necessary)will be directed at regular blood sugar monitorin-5 times daily. 4. Follow up: 6 months 5. Record blood sugar readings as instructed. Call if BG consistently <70 or >250. [phone] Patient has been checking blood glucoses 4 times daily for the past 90 days. Patient needs to continue checking blood glucoses 4 times daily. Blood glucose readings are used to adjust medication or insulin doses for meals, monitor dietary compliance, and adjust for high or low blood glucoses by patient on a daily basis. Blood glucose readings are reviewed at office visits for adjustment in medication regimen and assistance with dietary management, and other self- management issues including exercise, etc. Prognosis: Good. Duration of need for diabetes testing equipment: Permanent #150 strips/month prescribed. Mr. Lange would benefit from Continuing with [employer] continuous glucose monitoring system. Patient has had Type 1 diabetes for 50 years. Complications include diabetic neuropathy and autonomic neuropathy with hypoglycemic unawareness Patient is currently managed with: insulin pump Patient has been checking their blood sugar 4+ times per day and utilizing auto mode with adjustments in basal rate to avoid hypoglycemia. Patient is positive for a history of reoccurring hypoglycemia <50. Patient is predisposed to hypoglycemia, and has had 5 hypoglycemic episodes in the last 14 days. Patient's most recent Hgb A1c was 6.3% on 09/23 Patient's HGb is <6.0% or >8.5% Patient is positive for a history of hypoglycemic unawareness Patient has inadequate control despite compliance with multiple alterations in insulin doses/medication regimen. 6. Bring blood sugar meter to follow up appointment. Orders Placed This Encounter Procedures Comprehensive Metabolic Panel Hemoglobin A1c Electronically Signed by: Krunal Wilson CNP 09/21/20 3:44 PM documented in this encounterOhioHealthEvaluation note* Diagnosis Type 1 diabetes mellitus without complication (HCC)- Primary Type I (juvenile type) diabetes mellitus without mention of complication, not stated as uncontrolled Mixed hyperlipidemia [facility] Diagnosis Type 1 diabetes mellitus without complication (HCC)- Primary Type I (juvenile type) diabetes mellitus without mention of complication, not stated as uncontrolled Mixed hyperlipidemia [facility] in this encounter [facility]* Diagnosis Type 1 diabetes mellitus without complication (HCC)- Primary Type I (juvenile type) diabetes mellitus without mention of complication, not stated as uncontrolled Mixed hyperlipidemia documented in this encounter [facility] noteNo assessment information availableWPomerene Hospital Work Phone: Evaluation note* Diagnosis Onset Date Resolution Status Diabetes mellitus type 1, co ntrolled, without complications chronic Insulin pump titration chron ic Mixed hyperlipidemia chronic Presence of insulin pump chr [facility] Work Phone: evaluation note* Diagnosis Onset Date Resolution Status Diabetes mellitus type 1, co ntrolled, without complications chronic Insulin pump titration chron ic Mixed hyperlipidemia chronic Presence of insulin pump chr onic Elevated blood pressure read ing in office without diagnosis of hypertension acute Diabetes mellitus type 1, co ntrolled, without complications chronic Insulin pump titration chron ic Mixed hyperlipidemia chronic Presence of insulin pump chr [facility] Work Phone: Evaluation note* Diagnosis Onset Date Resolution Status Diabetes mellitus type 1, co ntrolled, without complications chronic Elevated blood pressure read ing in office without diagnosis of hypertension chronic Insulin pump titration chron ic Mixed hyperlipidemia chronic Presence of insulin pump chr onic Diabetes mellitus type 1, co ntrolled, without complications chronic Elevated blood pressure read ing in office without diagnosis of hypertension chronic Insulin pump titration chron ic Mixed hyperlipidemia chronic Presence of insulin pump chr [facility] Work Phone: Evaluation note* Diagnosis Medicare annual wellness visit, initial- Primary Encounter for vaccination Type 1 diabetes mellitus without complication (CMS/HCC) Type I (juvenile type) diabetes mellitus without mention of complication, not stated as uncontrolled Mixed hyperlipidemia Iron deficiency Disorders of iron metabolism Anemia, unspecified type documented in this encounter [facility] Work Phone: Instructions* Name Dates Details Instructions not documented [facility] Work Phone: Reason for referral (narrative)No reason for referral information availableSt[facility] Work Phone: Summary Purpose Family History No Family History Records Found Mother Name Dates Details No pertinent family history( V49.89, Z78.9) Status:Active Father Name Dates Details Family history of malignant neoplasm of prostate(V16.42, Z80.42) Status:Active Mother Name Dates Details No pertinent family history( V49.89, Z78.9) Status:Active Father Name Dates Details Family history of malignant neoplasm of prostate(V16.42, Z80.42) Status:Active Relationship Condition Age at Onset Recorded Date/T nasir Not Specified Kidney disorder Unknown daughter Diabetes mellitus Unknown Relationship Condition Age at Onset Recorded Date/T nasir daughter Diabetes mellitus Unknown father Malignant neoplasm Unknown mother Kidney disorder Unknown Advance Directives No Advanced Directives Records FoundDocuments on File Type Date Recorded 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 Advance Directives and Living Will Documents on File Type Date Recorded 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 Advance Directives and Living Will Advance Directive Response Recorded Date/ Time Living Will No January 30 2:09pm Power of Port Cdl A Driver No January 30, 2019 2:09pm Advance Directive Response Recorded Date/ Time Name of Medical Power of Port Cdl A Driver OLIVIA LANGE - July 12, 2022 3:34pm Living Will Yes July 12, 2022 3: 34pm Power of Port Cdl A Driver Yes July 12, 2022 3:34pm Advance Directive Response Recorded Date/ Time Living Will Yes July 12, 2022 3: 34pm Power of Port Cdl A Driver Yes July 12, 2022 3:34pm Advance Directive Response Recorded Date/ Time Living Will Yes July 12, 2022 3: 34pm Do you have a Healthcare Power of Port Cdl A Driver? Yes July 12, 2022 3:34pm Reason for Referral Status Reason Specialty Diagnoses / Procedures Referred By Contact Referred To Contact Closed Specialty Services Required/Patien t's Best Interest Endocrinology Diagnoses Controlled type 1 diabetes mellitus with hyperglycemia (HCC) Yesi Lombardo, [employer] [address] [place] [address] Elizabeth Glynn MD [address] [address] Specialty Diagnoses / Procedures Referred By Contac t Referred To Contact Endocrinology/Metabol ism Diagnoses Type 1 diabetes mellitus without complication (HCC) Krunal Wilson CNP [address] [place] [address] Cameron Avila MD [address] [place] [address] Referral ID Status Reason Start Date Expiration Date Visits Requested Visits Authorized [id number] Authorized Specialty Services Required/Pat ient's Best Interest 03/19/2021 03/19/2022 1 1 History of Present Illness * Reagan West PA-C - 05/15/2018 12:56 PM EDT Patient ID: Gutierrez Lange is a 62 y.o. male 1955 Subjective: Gutierrez Lange presents for transfer of care for Type 1 diabetes Patient has had diabetes for 47 years, diagnosed at 15 years old. Patient has taken Insulin for 47 years HPI Patient is a 62-year-old male non-smoker with past medical history of type 1 diabetes times 47 years. Patient was diagnosed at 15 years old and immediately started on insulin therapy. Patient utilized self insulin injection therapy for most of his disease course. He is now using a [id number] series pump with a Dex com sensor. Ppatient states his disease course has continued to be stable and he has been free of complications of diabetes. 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 He denies any current concerns or new/worsening symptoms related to his diabetes care. He states since initiating pump therapy he has been able to control his blood sugars very well. He denies any history of hospitalizations for high or low blood sugars. He denies any previous family history of health issues including diabetes. His daughter is a type 1diabetic as well and was diagnosed at 16 years old. He states his diet is well balanced and stays consistent. His is comfortable with accurate carb counting. He denies any tobacco, alcohol, or illicit drug use. 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 He denies intentional exercise but is very active at both of his jobs. Current Outpatient Medications Medication Sig Dispense Refill aspirin 325 MG tablet Take 325 mg by mouth daily . insulin aspart U-100 (NovoLOG) 100 unit/mL injection Inject under the skin 3 (three) times a day before meals . multivitamin Chew Chew and Swallow 1 tablet daily . No current facility-administered medications for this visit. Review of Systems: Review of Systems Constitutional: Negative for activity change, appetite change, fatigue and unexpected weight change. HENT: Negative for mouth sores. Eyes: Negative for photophobia and visual disturbance. Respiratory: Negative for cough and shortness of breath. Cardiovascular: Negative for chest pain, palpitations and leg swelling. Gastrointestinal: Negative for abdominal pain, constipation, diarrhea, nausea and vomiting. Endocrine: Negative for cold intolerance, heat intolerance, polydipsia, polyphagia and polyuria. Genitourinary: Negative for difficulty urinating, dysuria and frequency. Musculoskeletal: Negative for arthralgias and myalgias. Skin: Negative for rash and wound. Neurological: Negative for dizziness, tremors, weakness, numbness and headaches. Psychiatric/Behavioral: Negative for confusion and sleep disturbance. The patient is not nervous/anxious. The following portions of the patient's history were reviewed and updated as appropriate: allergies, current medications, past family history, past medical history, past social history, past surgicalhistory and problem list. Objective: BP (!) 151/81 Pulse 81 Ht 5' 8 Wt 73.8 kg (162 lb 12.8 oz) BMI 24.75 kg/m Wt Readings fromLast 3 Encounters: 05/15/18 73.8 kg (162 lb 12.8 oz) Physical Exam: Physical Exam General: alert, appears stated age and cooperative Eyes: conjunctivae/corneas clear. PERRL, EOM's intact. Neck: no adenopathy, supple, symmetrical, trachea midline. Thyroid: No thyromegaly appreciated Lung: clear to auscultation bilaterally Heart: regular rate and rhythm, S1, S2 normal, no murmur, click, rub or gallop Extremities: extremities normal, atraumatic, no cyanosis or edema Feet: Dry skin, Bilateral Feet: warm, good capillary refill and normal DP. Monofilament exam Normal, bilateral lower extremities. Neuro: normal without focal findings, mental status, speech normal, alert and oriented x3 and SHAYY Lab Review Hemoglobin A1c 7.3% on 04/12/18 03/30/18 Creatinine 1.14, estimated GFR 70 K4.3 01/01/18 Creatinine 0.86, estimated GFR 96 AST 34, ALT 62 K4.2 Microalbumin/creatinine ratio: 4.6 08/28/17 Total cholesterol 180, TG 123, HDL 41, LDL 114 Assessment/Plan: Dx: SNOMED CT(R) 1. Controlled type 1 diabetes mellitus with hyperglycemia (HCC) TYPE 1 DIABETES MELLITUS WELL CONTROLLED Ambulatory referral to Endocrinology Hemoglobin A1c Comprehensive Metabolic Panel Lipid Panel T4, Free TSH External Lab Microalbumin/Creatinine CBC and Differential Type 1 diabetes, under good control Currently managed with: No oral hypoglycemic medications Insulin Pump Basal Rates: 0000 0600: 0.85 0600 12 00: 0.875 1200 1630: 0.850 1630 0000: 0.90 ISF: 50 I/C ratio 1 carb: 0.8 2 carb: 1.7 3 carb: 2.6 4 carb: 3.5 Current Hemoglobin A1C= 7.3% in 04/2018 Weight trend: is stable Current diet: carb controlled, carbohydrate counting Current exercise: 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 yes - has a couple per week. Patient is aware of low BGs. Symptoms include sweating, fatigue, and blurry vision. Pt states he starts to feel these symptoms around 90. Patient states historically his BG has the ability to drop very quickly, which his DexCom sensor has helped to alert him of. NOTES: Patient states his latest A1C of 7.4% is the highest he has had in a long time and attributes it to a series of prednisone use for treatment of flu and bronchitis. He states his A1C has historically run between 6.2 and 6.8%. He admits to occasionally forgetting to bolus if he is busy at work, but mostly has strong confidence in using both his pump and his sensor. His pump settings have stayed mostly consistent without major adjustment. PLAN: See below DM Complication Review: Retinopathy: Negative - no signs of SWATCH CLERK Exam within last 12 months: yes Date: Appt next week. Has one annually Director Design/Jewelry Model Maker: [facility] Other Ophthalmologic Conditions: None known Nephropathy: Negative Creat: Microlbumin/creat ratio: Is patient on MEÑO inhibitor or angiotensin II receptor curt? no Peripheral Neuropathy: Negative Denies symptoms associated with neuropathy (numbness and/or tingling) Autonomic Neuropathy: Negative Hypoglycemia unawareness. Senses low BG at 90mg/dl. Hyperlipidemia: Positive Currently taking: Unable to tolerate statins, reports significant side effects with other cholesterol lowering agents. Patient states his is willing to explore other options or trying medications again. Hypertension: Negative . Currently taking: Patient on no antihypertensives BP: (!) 151/81 - states he is quite nervous during today's appointment. States his BP has always run in the normal range. 128/84 on manual re-check Cardiac: Negative Experiencing chest pain No . Experiencing shortness of breath No History of No history of CAD Vascular: Negative History of None Feet: Last foot exam: 05/15/18 Follows with Podiatry: No History of foot ulceration: No History of amputation: No Thyroid: Negative Other: Prostate CA: Follows with Urologist in [place]. CA has been stable for last 3 years. Had a biopsy last month to assess progression. Plan: 1. Rx changes: none Continue current insulin pump settings. Basal Rates: 0000 0600: 0.85 0600 12 00: 0.875 1200 1630: 0.850 1630 0000: 0.90 ISF: 50 I/C ratio 1 carb: 0.8 2 carb: 1.7 3 carb: 2.6 4 carb: 3.5 Patient to receive full diabetes annual labs before next appointment in 3 months. 2. Education: Reviewed ABCs of diabetes management (respective goals in parentheses): A1C (7.0-8.0), blood pressure (<130/80), and cholesterol (LDL <100). 3. Compliance at present is estimated to be excellent. Efforts to improve compliance (if necessary)will be directed at regular blood sugar monitorin-5 times daily. 4. Follow up: 3 months 5. Record blood sugar readings as instructed. Call if BG consistently <70 or >250. [phone] Patient has been checking blood glucoses 4 times daily for the past 90 days. Patient needs to continue checking blood glucoses 4 times daily. Blood glucose readings are used to adjust medication or insulin doses for meals, monitor dietary compliance, and adjust for high or low blood glucoses by patient on a daily basis. Blood glucose readings are reviewed at office visits for adjustment in medication regimen and assistance with dietary management, and other self- management issues including exercise, etc. Prognosis: Good. Duration of need for diabetes testing equipment: Permanent #150 strips/month prescribed. 6. Bring blood sugar meter to follow up appointment. Orders Placed This Encounter Procedures Hemoglobin A1c Comprehensive Metabolic Panel Lipid Panel T4, Free TSH External Lab Microalbumin/Creatinine CBC and Differential Electronically signed by: Reagan West PA-C, MPAS in this encounter* Reagan West PA-C - 08/16/2018 2:59 PM EDT Patient ID: Gutierrez Lange is a 63 y.o. male 1955 Subjective: Gutierrez Lange presents for transfer of care for Type 1 diabetes Patient has had diabetes for 47 years, diagnosed at 15 years old. Patient has taken Insulin for 47 years HPI Patient is a 62-year-old male with type 1 diabetes who presents for a 3 month follow up appointment. He currently utilizes a minimed 500 paradigm pump. This is his first follow-up appointment with our office. Patient is feeling well and brings no concerns or complaints to his appointment today. 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 His blood sugar control continues to be optimal at most times. He states he has been having some more hypoglycemia now that he is highly active throughout most hours of the day. Current Outpatient Medications Medication Sig Dispense Refill aspirin 325 MG tablet Take 325 mg by mouth daily . insulin aspart U-100 (NovoLOG) 100 unit/mL injection Inject under the skin 3 (three) times a day before meals . multivitamin Chew Chew and Swallow 1 tablet daily . ezetimibe (ZETIA) 10 mg tablet Take 1 (one) tablet (10 mg total) by mouth daily . 30 tablet 11 No current facility-administered medications for this visit. Review of Systems: Review of Systems Constitutional: Negative for activity change, appetite change, fatigue and unexpected weight change. HENT: Negative for mouth sores. Eyes: Negative for photophobia and visual disturbance. Respiratory: Negative for cough and shortness of breath. Cardiovascular: Negative for chest pain, palpitations and leg swelling. Gastrointestinal: Negative for abdominal pain, constipation, diarrhea, nausea and vomiting. Endocrine: Negative for cold intolerance, heat intolerance, polydipsia, polyphagia and polyuria. Genitourinary: Negative for difficulty urinating, dysuria and frequency. Musculoskeletal: Negative for arthralgias and myalgias. Skin: Negative for rash and wound. Neurological: Negative for dizziness, tremors, weakness, numbness and headaches. Psychiatric/Behavioral: Negative for confusion and sleep disturbance. The patient is not nervous/anxious. The following portions of the patient's history were reviewed and updated as appropriate: allergies, current medications, past family history, past medical history, past social history, past surgicalhistory and problem list. Objective: BP (!) 151/78 Pulse 69 Ht 5' 8.04 Wt 76.8 kg (169 lb 5 oz) BMI 25.71 kg/m Wt Readings from Last 3 Encounters: 08/16/18 76.8 kg (169 lb 5 oz) 05/15/18 73.8 kg (162 lb 12.8 oz) Physical Exam: Physical Exam General: alert, appears stated age and cooperative Eyes: conjunctivae/corneas clear. PERRL, EOM's intact. Neck: no adenopathy, supple, symmetrical, trachea midline. Thyroid: No thyromegaly appreciated Lung: clear to auscultation bilaterally Heart: regular rate and rhythm, S1, S2 normal, no murmur, click, rub or gallop Extremities: extremities normal, atraumatic, no cyanosis or edema Feet: Dry skin, Bilateral Feet: warm, good capillary refill and normal DP. Monofilament exam Normal, bilateral lower extremities. Neuro: normal without focal findings, mental status, speech normal, alert and oriented x3 and SHAYY Lab Review 08/14/2018 Hemoglobin A1c 7.0% Creatinine 0.6, estimated GFR 97, K4.2 AST 19, ALT 26 T cholesterol 188, TG 78, HDL 44, LDL 128 TSH 1.53, FT4--0.90 CBC: H/H 13.0/40.6, WBC 6.4, platelets 335,000 Microalbumin/creatinine ratio: Undetectable 04/12/18 Hemoglobin A1c 7.3% 03/30/18 Creatinine 1.14, estimated GFR 70 K4.3 01/01/18 Creatinine 0.86, estimated GFR 96 AST 34, ALT 62 K4.2 Microalbumin/creatinine ratio: 4.6 08/28/17 Total cholesterol 180, TG 123, HDL 41, LDL 114 Assessment/Plan: Dx: SNOMED CT(R) 1. Type 1 diabetes mellitus without complication (HCC) TYPE 1 DIABETES MELLITUS WITHOUT COMPLICATION Hemoglobin A1c Comprehensive Metabolic Panel 2. 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 yes - has a couple per week. Patient is aware of low BGs. Symptoms include sweating, fatigue, and blurry vision. Pt states he starts to feel these symptoms around 90. Patient states historically his BG has the ability to drop very quickly, which his DexCom sensor has helped to alert him of. NOTES: Patient states more episodes of hypoglycemia have been occurring, he states in the past he usually decrease his basal rates during the summer months as he is extremely active at both of his jobs. DM Complication Review: Retinopathy: Negative - no signs of SWATCH CLERK Exam within last 12 months: yes Date: 05/2018, has one annually Director Design/Jewelry Model Maker: [facility] Other Ophthalmologic Conditions: None known Nephropathy: Negative Creatinine 0.6, estimated GFR 97 Microlbumin/creat ratio: Undetectable on 08/14/2018 Is patient on MEÑO inhibitor or angiotensin II receptor curt? no Peripheral Neuropathy: Negative Denies symptoms associated with neuropathy (numbness and/or tingling) Autonomic Neuropathy: Negative Hypoglycemia unawareness. Senses low BG at 90mg/dl. Hyperlipidemia: Positive Currently taking: Unable to tolerate statins, reports significant side effects several statin drugs. Discussed lipid profile today, as well as recommendations for LDL goal <100 in diabetic patients. 10-year CV event risk 29%. Patient is willing to try Zetia today as alternative therapy for HLD. 08/14/2018: T cholesterol 188, TG 78, HDL 44, LDL 128 Plan: Start Zetia 10mg once daily Hypertension: Negative . Currently taking: Patient on no antihypertensives BP: (!) 151/78 140/84 on manual re-check Cardiac: Negative Experiencing chest pain No . Experiencing shortness of breath No History of No history of CAD Vascular: Negative History of None Feet: Last foot exam: 08/16/18 Follows with Podiatry: No History of foot ulceration: No History of amputation: No Thyroid: Negative TSH 1.53, FT4--0.90 on 08/14/2018 Other: Prostate CA: Follows with Urologist in [place]. CA has been stable for last 3 years. Had a biopsy last month to assess progression. Plan: 1. Rx changes: See pump changes in bold below Basal Rates (u/hr): 0000 0600: 1.000 0600 1200: 0.800 1200 1600: 0.900 1600 2030: 0.850 2030 2400: 0.925 ISF: 50 I/C ratio 1 carb choice: 0.8 2 carb: 1.7 3 carb: 2.6 4 carb: 3.5 Patient's insulin pump and Dexcom sensor downloaded for review. Patient running mildly higher through the night, and having more episodes of hypoglycemia in the morning and evening hours while at work. Nasal rates were adjusted appropriately as above. Hyperlipidemia Start Zetia 10 mg once daily Check lipid panel before appointment in 6 months 2. Education: Reviewed ABCs of diabetes management (respective goals in parentheses): A1C (7.0-8.0), blood pressure (<130/80), and cholesterol (LDL <100). 3. Compliance at present is estimated to be excellent. Efforts to improve compliance (if necessary)will be directed at regular blood sugar monitorin-5 times daily. 4. Follow up: 3 months 5. Record blood sugar readings as instructed. Call if BG consistently <70 or >250. [phone] Patient has been checking blood glucoses 4 times daily for the past 90 days. Patient needs to continue checking blood glucoses 4 times daily. Blood glucose readings are used to adjust medication or insulin doses for meals, monitor dietary compliance, and adjust for high or low blood glucoses by patient on a daily basis. Blood glucose readings are reviewed at office visits for adjustment in medication regimen and assistance with dietary management, and other self- management issues including exercise, etc. Prognosis: Good. Duration of need for diabetes testing equipment: Permanent #150 strips/month prescribed. 6. Bring blood sugar meter to follow up appointment. Orders Placed This Encounter Procedures Hemoglobin A1c Comprehensive Metabolic Panel Electronically signed by: Reagan [place] PA-C, MPAS documented in this encounter* Krunal Wilson, [employer]ECTIVE [employer] - 11/20/2018 3:34 PM EDT Patient ID: Gutierrez Lagne is a 63 y.o. male 1955 Subjective: Gutierrez Lange presents for transfer of care for Type 1 diabetes Patient has had diabetes for 47 years, diagnosed at 15 years old. Patient has taken Insulin for 47 years HPI Patient is a 62-year-old male with type 1 diabetes who presents for a 3 month follow up appointment. He currently utilizes a minimed 500 paradigm pump. Patient is feeling well and brings no concerns or complaints to his appointment today. 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 His blood sugar control continues to be optimal at most times. Current Outpatient Medications Medication Sig Dispense Refill aspirin 325 MG tablet Take 325 mg by mouth daily . ezetimibe (ZETIA) 10 mg tablet Take 1 (one) tablet (10 mg total) by mouth daily . 90 tablet 3 insulin aspart U-100 (NovoLOG) 100 unit/mL injection Inject under the skin 3 (three) times a day before meals . multivitamin Chew Chew and Swallow 1 tablet daily . No current facility-administered medications for this visit. Review of Systems: Review of Systems Constitutional: Negative for activity change, appetite change, fatigue and unexpected weight change. HENT: Negative for mouth sores. Eyes: Negative for photophobia and visual disturbance. Respiratory: Negative for cough and shortness of breath. Cardiovascular: Negative for chest pain, palpitations and leg swelling. Gastrointestinal: Negative for abdominal pain, constipation, diarrhea, nausea and vomiting. Endocrine: Negative for cold intolerance, heat intolerance, polydipsia, polyphagia and polyuria. Genitourinary: Negative for difficulty urinating, dysuria and frequency. Musculoskeletal: Negative for arthralgias and myalgias. Skin: Negative for rash and wound. Neurological: Negative for dizziness, tremors, weakness, numbness and headaches. Psychiatric/Behavioral: Negative for confusion and sleep disturbance. The patient is not nervous/anxious. The following portions of the patient's history were reviewed and updated as appropriate: allergies, current medications, past family history, past medical history, past social history, past surgicalhistory and problem list. Objective: BP 147/74 Pulse 71 Ht 5' 8.04 Wt 74.4 kg (164 lb) BMI 24.91 kg/m Wt Readings from Last 3 Encounters: 11/20/18 74.4 kg (164 lb) 08/16/18 76.8 kg (169 lb 5 oz) 05/15/18 73.8 kg (162 lb 12.8 oz) Physical Exam: Physical Exam General: alert, appears stated age and cooperative Eyes: conjunctivae/corneas clear. PERRL, EOM's intact. Neck: no adenopathy, supple, symmetrical, trachea midline. Thyroid: No thyromegaly appreciated Lung: clear to auscultation bilaterally Heart: regular rate and rhythm, S1, S2 normal, no murmur, click, rub or gallop Extremities: extremities normal, atraumatic, no cyanosis or edema Feet: Dry skin, Bilateral Feet: warm, good capillary refill and normal DP. Monofilament exam Normal, bilateral lower extremities. Neuro: normal without focal findings, mental status, speech normal, alert and oriented x3 and SHAYY Lab Review 08/14/2018 Hemoglobin A1c 7.0% Creatinine 0.6, estimated GFR 97, K4.2 AST 19, ALT 26 T cholesterol 188, TG 78, HDL 44, LDL 128 TSH 1.53, FT4--0.90 CBC: H/H 13.0/40.6, WBC 6.4, platelets 335,000 Microalbumin/creatinine ratio: Undetectable 04/12/18 Hemoglobin A1c 7.3% 03/30/18 Creatinine 1.14, estimated GFR 70 K4.3 01/01/18 Creatinine 0.86, estimated GFR 96 AST 34, ALT 62 K4.2 Microalbumin/creatinine ratio: 4.6 08/28/17 Total cholesterol 180, TG 123, HDL 41, LDL 114 Assessment/Plan: Dx: 1. Type 1 diabetes mellitus without complication (HCC) Lipid Panel Hemoglobin A1c Comprehensive Metabolic Panel 2. 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 yes - has a couple per week. Patient is aware of low BGs. Symptoms include sweating, fatigue, and blurry vision. Pt states he starts to feel these symptoms around 90. Patient states historically his BG has the ability to drop very quickly, which his DexCom sensor has helped to alert him of. NOTES:Patient did not have any labs prior to follow up. DM Complication Review: Retinopathy: Negative - no signs of SWATCH CLERK Exam within last 12 months: yes Date: 08/2018, has one annually Director Design/Jewelry Model Maker: [facility] Other Ophthalmologic Conditions: None known Nephropathy: Negative Creatinine 0.6, estimated GFR 97 Microlbumin/creat ratio: Undetectable on 08/14/2018 Is patient on MEÑO inhibitor or angiotensin II receptor curt? no Peripheral Neuropathy: Negative Denies symptoms associated with neuropathy (numbness and/or tingling) Autonomic Neuropathy: Negative Hypoglycemia unawareness. Senses low BG at 90mg/dl. Hyperlipidemia: Positive Currently taking: Unable to tolerate statins, reports significant side effects several statin drugs. Started Zetia 08/22. 08/14/2018: T cholesterol 188, TG 78, HDL 44, LDL 128 Plan: Continue Zetia 10mg once daily, Check labs prior to follow up. Hypertension: Negative . Currently taking: Patient on no antihypertensives BP: 147/74 140/84 on manual re-check Cardiac: Negative Experiencing chest pain No . Experiencing shortness of breath No History of No history of CAD Vascular: Negative History of None Feet: Last foot exam: 11/20/18 Follows with Podiatry: No History of foot ulceration: No History of amputation: No Thyroid: Negative TSH 1.53, FT4--0.90 on 08/14/2018 Other: Prostate CA: Follows with Urologist in [place]. CA has been stable for last 3 years. Had a biopsy 07/22 to assessprogression. Plan: 1. Rx changes: none Basal Rates (u/hr): 0000 0600: 1.000 0600 1200: 0.800 1200 1600: 0.900 1600 2030: 0.850 2030 2400: 0.925 ISF: 50 I/C ratio 1 carb choice: 0.8 2 carb: 1.7 3 carb: 2.6 4 carb: 3.5 Patient's insulin pump and Dexcom sensor downloaded for review. Patient running mildly higher through the night, and having more episodes of hypoglycemia in the morning and evening hours while at work. Nasal rates were adjusted appropriately as above. Hyperlipidemia Zetia 10 mg once daily Check lipid panel before appointment in 6 months 2. Education: Reviewed ABCs of diabetes management (respective goals in parentheses): A1C (7.0-8.0), blood pressure (<130/80), and cholesterol (LDL <100). 3. Compliance at present is estimated to be excellent. Efforts to improve compliance (if necessary)will be directed at regular blood sugar monitorin-5 times daily. 4. Follow up: 3 months 5. Record blood sugar readings as instructed. Call if BG consistently <70 or >250. [phone] Patient has been checking blood glucoses 4 times daily for the past 90 days. Patient needs to continue checking blood glucoses 4 times daily. Blood glucose readings are used to adjust medication or insulin doses for meals, monitor dietary compliance, and adjust for high or low blood glucoses by patient on a daily basis. Blood glucose readings are reviewed at office visits for adjustment in medication regimen and assistance with dietary management, and other self- management issues including exercise, etc. Prognosis: Good. Duration of need for diabetes testing equipment: Permanent #150 strips/month prescribed. 6. Bring blood sugar meter to follow up appointment. Orders Placed This Encounter Procedures Lipid Panel Hemoglobin A1c Comprehensive Metabolic Panel Electronically Signed by: Krunal Wilson CNP 11/20/18 3:44 PM documented in this encounter* Krunal Wilson CNP - 03/18/2019 2:34 PM EST Patient ID: Gutierrez Lange is a 63 y.o. male 1955 Subjective: Gutierrez Lange presents management for Type 1 diabetes Patient has had diabetes for 47 years, diagnosed at 15 years old. Patient has taken Insulin for 47 years HPI Patient is a 62-year-old male with type 1 diabetes who presents for a 3 month follow up appointment. He currently utilizes a minimed 500 paradigm pump. Patient is feeling well and brings no concerns or complaints to his appointment today. He was off work January 27-March 07 2019 due to prostatectomy. His blood sugar control continues to be optimalat most times. Current Outpatient Medications Medication Sig Dispense Refill aspirin 325 MG tablet Take 325 mg by mouth daily . insulin aspart U-100 (NovoLOG) 100 unit/mL injection Use via insulin pump approx 100 units daily. .90 mL 3 multivitamin Chew Chew and Swallow 1 tablet daily . ezetimibe (ZETIA) 10 mg tablet Take 1 (one) tablet (10 mg total) by mouth daily . (Patient not taking: Reported on 03/18/2019 .) 90 tablet 3 No current facility-administered medications for this visit. Review of Systems: Review of Systems Constitutional: Negative for activity change, appetite change, fatigue and unexpected weight change. HENT: Negative for mouth sores. Eyes: Negative for photophobia and visual disturbance. Respiratory: Negative for cough and shortness of breath. Cardiovascular: Negative for chest pain, palpitations and leg swelling. Gastrointestinal: Negative for abdominal pain, constipation, diarrhea, nausea and vomiting. Endocrine: Negative for cold intolerance, heat intolerance, polydipsia, polyphagia and polyuria. Genitourinary: Negative for difficulty urinating, dysuria and frequency. Musculoskeletal: Negative for arthralgias and myalgias. Skin: Negative for rash and wound. Neurological: Negative for dizziness, tremors, weakness, numbness and headaches. Psychiatric/Behavioral: Negative for confusion and sleep disturbance. The patient is not nervous/anxious. The following portions of the patient's history were reviewed and updated as appropriate: allergies, current medications, past family history, past medical history, past social history, past surgicalhistory and problem list. Objective: BP 138/88 (BP Location: Right arm, Patient Position: Sitting, BP Cuff Size: Adult) Pulse 74 Temp 97.5 F (36.4 C) (Oral) Resp 16 Ht 5' 8 Wt 75.9 kg (167 lb 4.8 oz) SpO2 97% BMI 25.44 kg/m Wt Readings from Last 3 Encounters: 03/18/19 75.9 kg (167 lb 4.8 oz) 11/20/18 74.4 kg (164 lb) 08/16/18 76.8 kg (169 lb 5 oz) Physical Exam: General: alert, appears stated age and cooperative Eyes: conjunctivae/corneas clear. PERRL, EOM's intact. Neck: no adenopathy, supple, symmetrical, trachea midline. Thyroid: No thyromegaly appreciated Lung: clear to auscultation bilaterally Heart: regular rate and rhythm, S1, S2 normal, no murmur, click, rub or gallop Extremities: extremities normal, atraumatic, no cyanosis or edema Feet: Dry skin, Bilateral Feet: warm, good capillary refill and normal DP. Monofilament exam Normal, bilateral lower extremities. Neuro: normal without focal findings, mental status, speech normal, alert and oriented x3 and SHAYY Lab Review 03/15/19 *labs reviewed 03/18/19 Hgb A1c: 7.4% Creat: 0.95; eGFR: 85 AST: 23; ALT: 34 K: 4.1 Tchol: 187; Tri ; HDL: 44 ; LDL: 122 08/14/2018 Hemoglobin A1c 7.0% Creatinine 0.6, estimated GFR 97, K4.2 AST 19, ALT 26 T cholesterol 188, TG 78, HDL 44, LDL 128 TSH 1.53, FT4--0.90 CBC: H/H 13.0/40.6, WBC 6.4, platelets 335,000 Microalbumin/creatinine ratio: Undetectable 04/12/18 Hemoglobin A1c 7.3% 03/30/18 Creatinine 1.14, estimated GFR 70 K4.3 01/01/18 Creatinine 0.86, estimated GFR 96 AST 34, ALT 62 K4.2 Microalbumin/creatinine ratio: 4.6 08/28/17 Total cholesterol 180, TG 123, HDL 41, LDL 114 Assessment/Plan: Dx: 1. Type 1 diabetes mellitus without complication (HCC) 2. 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 yes - has a couple per week. Patient is aware of low BGs. Symptoms include sweating, fatigue, and blurry vision. Pt states he starts to feel these symptoms around 90. Patient states historically his BG has the ability to drop very quickly, which his DexCom sensor has helped to alert him of. NOTES: Doing well without complaints, recovered from prostate surgery 01/22 DM Complication Review: Retinopathy: Negative - no signs of SWATCH CLERK Exam within last 12 months: yes Date: 08/2018, has one annually Director Design/Jewelry Model Maker: [facility] Other Ophthalmologic Conditions: None known Nephropathy: Negative Creat: 0.95; eGFR: 85 03/25 Microlbumin/creat ratio: Undetectable on 08/14/2018 Is patient on MEÑO inhibitor or angiotensin II receptor curt? no Peripheral Neuropathy: Negative Denies symptoms associated with neuropathy (numbness and/or tingling) Autonomic Neuropathy: Negative Hypoglycemia unawareness. Senses low BG at 90mg/dl. Hyperlipidemia: Positive Currently taking: Unable to tolerate statins, reports significant side effects several statin drugs. Started Zetia 08/22, stopped 12/22 secondary to increased gas and loose stools. 03/25: Tchol: 187; Tri ; HDL: 44 ; LDL: 122 Plan: Continue off meds. Check labs prior to follow up. Hypertension: Negative . Currently taking: Patient on no antihypertensives BP: 138/88 Cardiac: Negative Experiencing chest pain No . Experiencing shortness of breath No History of No history of CAD Vascular: Negative History of None Feet: Last foot exam: 03/18/19 Follows with Podiatry: No History of foot ulceration: No History of amputation: No Thyroid: Negative TSH 1.53, FT4--0.90 on 08/14/2018 Other: Prostate CA: Follows with Urologist in [place]. CA has been stable for last 3 years. Had a biopsy 07/22 to assessprogression. Underwent prostatectomy January 2019 Plan: 1. Rx changes: none Basal Rates (u/hr): 0000 0600: 1.000 0600 1200: 0.800 1200 1600: 0.900 1600 2030: 0.850 2030 2400: 0.925 ISF: 50 I/C ratio 1 carb choice: 0.8 2 carb: 1.7 3 carb: 2.6 4 carb: 3.5 Patient's insulin pump and Dexcom sensor downloaded for review. Patient running mildly higher through the night, and having more episodes of hypoglycemia in the morning and evening hours while at work. Nasal rates were adjusted appropriately as above. Hyperlipidemia Check lipid panel before appointment in 6 months 2. Education: Reviewed ABCs of diabetes management (respective goals in parentheses): A1C (7.0-8.0), blood pressure (<130/80), and cholesterol (LDL <100). 3. Compliance at present is estimated to be excellent. Efforts to improve compliance (if necessary)will be directed at regular blood sugar monitorin-5 times daily. 4. Follow up: 6 months 5. Record blood sugar readings as instructed. Call if BG consistently <70 or >250. [phone] Patient has been checking blood glucoses 4 times daily for the past 90 days. Patient needs to continue checking blood glucoses 4 times daily. Blood glucose readings are used to adjust medication or insulin doses for meals, monitor dietary compliance, and adjust for high or low blood glucoses by patient on a daily basis. Blood glucose readings are reviewed at office visits for adjustment in medication regimen and assistance with dietary management, and other self- management issues including exercise, etc. Prognosis: Good. Duration of need for diabetes testing equipment: Permanent #150 strips/month prescribed. 6. Bring blood sugar meter to follow up appointment. Orders Placed This Encounter Procedures Comprehensive Metabolic Panel Hemoglobin A1c Microalbumin/Creatinine Ratio, UR Random CBC and Differential TSH T4, Free Lipid Panel Electronically Signed by: Krunal Wilson CNP 03/18/19 3:44 PM documented in this encounter* Krunal Wilson CNP - 09/16/2019 1:51 PM EDT Patient ID: Gutierrez Lange is a 64 y.o. male 1955 Subjective: Gutierrez Lange presents management for Type 1 diabetes Patient has had diabetes for 49 years, diagnosed at 15 years old. Patient has taken Insulin for 49 years HPI Patient is a 62-year-old male with type 1 diabetes who presents for a 3 month follow up appointment. He currently utilizes a minimed 500 paradigm pump. Patient is feeling well and brings no concerns or complaints to his appointment today. He was off work January 27-March 07 2019 due to prostatectomy. His blood sugar control continues to be optimalat most times. Current Outpatient Medications Medication Sig Dispense Refill aspirin 325 MG tablet Take 325 mg by mouth daily . insulin aspart U-100 (NovoLOG) 100 unit/mL injection Use via insulin pump approx 100 units daily. .90 mL 3 multivitamin Chew Chew and Swallow 1 tablet daily . blood sugar diagnostic (Contour Next Test Strips) strips Use as directed 4 times per day E10.9 . 400 each 3 ezetimibe (ZETIA) 10 mg tablet Take 1 (one) tablet (10 mg total) by mouth daily . (Patient not taking: Reported on 09/16/2019 .) 90 tablet 3 No current facility-administered medications for this visit. Review of Systems: Review of Systems Constitutional: Negative for activity change, appetite change, fatigue and unexpected weight change. HENT: Negative for mouth sores. Eyes: Negative for photophobia and visual disturbance. Respiratory: Negative for cough and shortness of breath. Cardiovascular: Negative for chest pain, palpitations and leg swelling. Gastrointestinal: Negative for abdominal pain, constipation, diarrhea, nausea and vomiting. Endocrine: Negative for cold intolerance, heat intolerance, polydipsia, polyphagia and polyuria. Genitourinary: Negative for difficulty urinating, dysuria and frequency. Musculoskeletal: Negative for arthralgias and myalgias. Skin: Negative for rash and wound. Neurological: Negative for dizziness, tremors, weakness, numbness and headaches. Psychiatric/Behavioral: Negative for confusion and sleep disturbance. The patient is not nervous/anxious. The following portions of the patient's history were reviewed and updated as appropriate: allergies, current medications, past family history, past medical history, past social history, past surgicalhistory and problem list. Objective: BP 126/71 Pulse 63 Ht 5' 8 Wt 73.5 kg (162 lb) BMI 24.63 kg/m Wt Readings from Last 3 Encounters: 09/16/19 73.5 kg (162 lb) 03/18/19 75.9 kg (167 lb 4.8 oz) 11/20/18 74.4 kg (164 lb) Physical Exam: General: alert, appears stated age and cooperative Eyes: conjunctivae/corneas clear. PERRL, EOM's intact. Neck: no adenopathy, supple, symmetrical, trachea midline. Thyroid: No thyromegaly appreciated Lung: clear to auscultation bilaterally Heart: regular rate and rhythm, S1, S2 normal, no murmur, click, rub or gallop Extremities: extremities normal, atraumatic, no cyanosis or edema Feet: Dry skin, Bilateral Feet: warm, good capillary refill and normal DP. Monofilament exam Normal, bilateral lower extremities. Neuro: normal without focal findings, mental status, speech normal, alert and oriented x3 and SHAYY Lab Review 09/12/19 *labs reviewed 09/16/19 Hgb A1c: 6.9% Creat: 0.82; eGFR: 101 AST: 19; ALT: 29 K: 3.7 CBC: WBC:6.0; Hgb: 12.5; Hct: 39.7; Plt: 280 Tchol: 185; Tri ; HDL: 47 ; LDL: 121 TSH: 1.42 ; FreeT4: 0.93 Microalbumin/creatinine Ratio: 5.5 03/15/19 Hgb A1c: 7.4% Creat: 0.95; eGFR: 85 AST: 23; ALT: 34 K: 4.1 Tchol: 187; Tri ; HDL: 44 ; LDL: 122 08/14/2018 Hemoglobin A1c 7.0% Creatinine 0.6, estimated GFR 97, K4.2 AST 19, ALT 26 T cholesterol 188, TG 78, HDL 44, LDL 128 TSH 1.53, FT4--0.90 CBC: H/H 13.0/40.6, WBC 6.4, platelets 335,000 Microalbumin/creatinine ratio: Undetectable 04/12/18 Hemoglobin A1c 7.3% 03/30/18 Creatinine 1.14, estimated GFR 70 K4.3 01/01/18 Creatinine 0.86, estimated GFR 96 AST 34, ALT 62 K4.2 Microalbumin/creatinine ratio: 4.6 08/28/17 Total cholesterol 180, TG 123, HDL 41, LDL 114 Assessment/Plan: Dx: 1. Type 1 diabetes mellitus without complication (HCC) 2. 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 yes - has a couple per week. Patient is aware of low BGs. Symptoms include sweating, fatigue, and blurry vision. Pt states he starts to feel these symptoms around 90. Patient states historically his BG has the ability to drop very quickly, MEDTR[employer] sensor helping withsuspend before low. NOTES: Doing well without complaints, recovered from prostate surgery 01/22 DM Complication Review: Retinopathy: Negative - no signs of SWATCH CLERK Exam within last 12 months: yes Date: 08/2018, has one annually Director Design/Jewelry Model Maker: [facility] Other Ophthalmologic Conditions: None known Nephropathy: Negative Creat: 0.95; eGFR: 85 03/25 Microlbumin/creat ratio: Undetectable on 08/14/2018 Is patient on MEÑO inhibitor or angiotensin II receptor curt? no Peripheral Neuropathy: Negative Denies symptoms associated with neuropathy (numbness and/or tingling) Autonomic Neuropathy: Negative Hypoglycemia unawareness. Senses low BG at 90mg/dl. Hyperlipidemia: Positive Currently taking: Unable to tolerate statins, reports significant side effects several statin drugs. Started Zetia 08/22, stopped 12/22 secondary to increased gas and loose stools. 03/25: Tchol: 187; Tri ; HDL: 44 ; LDL: 122 Plan: Continue off meds. Check labs prior to follow up. Hypertension: Negative . Currently taking: Patient on no antihypertensives BP: 126/71 Cardiac: Negative Experiencing chest pain No . Experiencing shortness of breath No History of No history of CAD Vascular: Negative History of None Feet: Last foot exam: 09/16/19 Follows with Podiatry: No History of foot ulceration: No History of amputation: No Thyroid: Negative TSH 1.53, FT4--0.90 on 08/14/2018 Other: Prostate CA: Follows with Urologist in [place]. CA has been stable for last 3 years. Had a biopsy 07/22 to assessprogression. Underwent prostatectomy January 2019 Plan: 1. Rx changes: none Basal Rates (u/hr): 0000 0600: 1.000 0600 1200: 0.85 1200 1630: 0.875 1600 2030: 1.00 2030 2400: 1.00 ISF: 50 I/C ratio 1 carb choice: 0.8 2 carb: 1.7 3 carb: 2.6 4 carb: 3.5 Patient's insulin pump and Dexcom sensor downloaded for review. Patient running mildly higher through the night, and having more episodes of hypoglycemia in the morning and evening hours while at work. Nasal rates were adjusted appropriately as above. Hyperlipidemia Check lipid panel before appointment in 6 months 2. Education: Reviewed ABCs of diabetes management (respective goals in parentheses): A1C (7.0-8.0), blood pressure (<130/80), and cholesterol (LDL <100). 3. Compliance at present is estimated to be excellent. Efforts to improve compliance (if necessary)will be directed at regular blood sugar monitorin-5 times daily. 4. Follow up: 6 months 5. Record blood sugar readings as instructed. Call if BG consistently <70 or >250. [phone] Patient has been checking blood glucoses 4 times daily for the past 90 days. Patient needs to continue checking blood glucoses 4 times daily. Blood glucose readings are used to adjust medication or insulin doses for meals, monitor dietary compliance, and adjust for high or low blood glucoses by patient on a daily basis. Blood glucose readings are reviewed at office visits for adjustment in medication regimen and assistance with dietary management, and other self- management issues including exercise, etc. Prognosis: Good. Duration of need for diabetes testing equipment: Permanent #150 strips/month prescribed. 6. Bring blood sugar meter to follow up appointment. Orders Placed This Encounter Procedures Comprehensive Metabolic Panel Hemoglobin A1c Electronically Signed by: Krunal Wilson CNP 09/16/19 3:44 PM documented in this encounter* Krunal Wilson CNP - 03/23/2020 1:47 PM EST Patient ID: Gutierrez Lange is a 64 y.o. male 1955 Subjective: Gutierrez Lange presents management for Type 1 diabetes Patient has had diabetes for 49 years, diagnosed at 15 years old. Patient has taken Insulin for 49 years HPI Patient is a 64-year-old male with type 1 diabetes who presents for a 3 month follow up appointment. He currently utilizes a minimed 770 pump. Patient is feeling well and brings no concerns or complaints to his appointment today. His blood sugar control continues to be optimal at most times. Current Outpatient Medications Medication Sig Dispense Refill aspirin 325 MG tablet Take 325 mg by mouth daily . blood sugar diagnostic (Contour Next Test Strips) strips Use as directed 4 times per day E10.9 . 400 each 3 insulin aspart U-100 (NovoLOG) 100 unit/mL injection Use via insulin pump approx 100 units daily. .90 mL 3 multivitamin Chew Chew and Swallow 1 tablet daily . No current facility-administered medications for this visit. Review of Systems: Review of Systems Constitutional: Negative for activity change, appetite change, fatigue and unexpected weight change. HENT: Negative for mouth sores. Eyes: Negative for photophobia and visual disturbance. Respiratory: Negative for cough and shortness of breath. Cardiovascular: Negative for chest pain, palpitations and leg swelling. Gastrointestinal: Negative for abdominal pain, constipation, diarrhea, nausea and vomiting. Endocrine: Negative for cold intolerance, heat intolerance, polydipsia, polyphagia and polyuria. Genitourinary: Negative for difficulty urinating, dysuria and frequency. Musculoskeletal: Negative for arthralgias and myalgias. Skin: Negative for rash and wound. Neurological: Negative for dizziness, tremors, weakness, numbness and headaches. Psychiatric/Behavioral: Negative for confusion and sleep disturbance. The patient is not nervous/anxious. The following portions of the patient's history were reviewed and updated as appropriate: allergies, current medications, past family history, past medical history, past social history, past surgicalhistory and problem list. Objective: BP 117/68 (BP Location: Right arm, Patient Position: Sitting, BP Cuff Size: Adult) Pulse 86 Ht 5' 8 Wt 74.3 kg (163 lb 11.2 oz) BMI 24.89 kg/m Wt Readings from Last 3 Encounters: 03/23/20 74.3 kg (163 lb 11.2 oz) 09/16/19 73.5 kg (162 lb) 03/18/19 75.9 kg (167 lb 4.8 oz) Physical Exam: General: alert, appears stated age and cooperative Eyes: conjunctivae/corneas clear. PERRL, EOM's intact. Neck: no adenopathy, supple, symmetrical, trachea midline. Thyroid: No thyromegaly appreciated Lung: clear to auscultation bilaterally Heart: regular rate and rhythm, S1, S2 normal, no murmur, click, rub or gallop Extremities: extremities normal, atraumatic, no cyanosis or edema Feet: Dry skin, Patient Refused. Monofilament exam Normal , bilateral lower extremities. Neuro: normal without focal findings, mental status, speech normal, alert and oriented x3 and SHAYY Lab Review 03/20/20 *labs reviewed 03/23/20 Hgb A1c: 7.0% Creat: 0.95; eGFR: 85 AST: 24; ALT: 31 K: 4.1 09/12/19 Hgb A1c: 6.9% Creat: 0.82; eGFR: 101 AST: 19; ALT: 29 K: 3.7 CBC: WBC:6.0; Hgb: 12.5; Hct: 39.7; Plt: 280 Tchol: 185; Tri ; HDL: 47 ; LDL: 121 TSH: 1.42 ; FreeT4: 0.93 Microalbumin/creatinine Ratio: 5.5 03/15/19 Hgb A1c: 7.4% Creat: 0.95; eGFR: 85 AST: 23; ALT: 34 K: 4.1 Tchol: 187; Tri ; HDL: 44 ; LDL: 122 08/14/2018 Hemoglobin A1c 7.0% Creatinine 0.6, estimated GFR 97, K4.2 AST 19, ALT 26 T cholesterol 188, TG 78, HDL 44, LDL 128 TSH 1.53, FT4--0.90 CBC: H/H 13.0/40.6, WBC 6.4, platelets 335,000 Microalbumin/creatinine ratio: Undetectable 04/12/18 Hemoglobin A1c 7.3% 03/30/18 Creatinine 1.14, estimated GFR 70 K4.3 01/01/18 Creatinine 0.86, estimated GFR 96 AST 34, ALT 62 K4.2 Microalbumin/creatinine ratio: 4.6 08/28/17 Total cholesterol 180, TG 123, HDL 41, LDL 114 Assessment/Plan: Dx: 1. Type 1 diabetes mellitus without complication (HCC) 2. 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 yes - has a couple per week. Patient is aware of low BGs. Symptoms include sweating, fatigue, and blurry vision. Pt states he starts to feel these symptoms around 90. Patient states historically his BG has the ability to drop very quickly, MEDTRON[employer] sensor helping withsuspend before low. NOTES: Doing well without complaints, recovered from prostate surgery 01/22 DM Complication Review: Retinopathy: Negative - no signs of SWATCH CLERK Exam within last 12 months: yes Date: 08/23, has one annually Director Design/Jewelry Model Maker: [facility] Other Ophthalmologic Conditions: None known Nephropathy: Negative Creat: 0.95; eGFR: 85 03/25 Microlbumin/creat ratio: Undetectable on 08/14/2018 Is patient on MEÑO inhibitor or angiotensin II receptor curt? no Peripheral Neuropathy: Negative Denies symptoms associated with neuropathy (numbness and/or tingling) Autonomic Neuropathy: Negative Hypoglycemia unawareness. Senses low BG at 90mg/dl. Hyperlipidemia: Positive Currently taking: Unable to tolerate statins, reports significant side effects several statin drugs. Started Zetia 08/22, stopped 12/22 secondary to increased gas and loose stools. 09/12/19: Tchol: 185; Tri ; HDL: 47 ; LDL: 121 Plan: Continue off meds. Check labs prior to follow up. Hypertension: Negative . Currently taking: Patient on no antihypertensives BP: 117/68 Cardiac: Negative Experiencing chest pain No . Experiencing shortness of breath No History of No history of CAD Vascular: Negative History of None Feet: Last foot exam: 03/23/20 Follows with Podiatry: No History of foot ulceration: No History of amputation: No Thyroid: Negative TSH 1.53, FT4--0.90 on 08/14/2018 Other: Prostate CA: Follows with Urologist in [place]. CA has been stable for last 3 years. Had a biopsy 07/22 to assessprogression. Underwent prostatectomy January 2019 Plan: 1. Rx changes: none Basal Rates (u/hr): 0000 0600: 1.000 0600 1200: 0.85 1200 1630: 0.875 1600 2030: 1.00 2030 2400: 1.00 ISF: 50 1.0-3.2 units per meal Hyperlipidemia Check lipid panel before appointment in 6 months 2. Education: Reviewed ABCs of diabetes management (respective goals in parentheses): A1C (7.0-8.0), blood pressure (<130/80), and cholesterol (LDL <100). 3. Compliance at present is estimated to be excellent. Efforts to improve compliance (if necessary)will be directed at regular blood sugar monitorin-5 times daily. 4. Follow up: 6 months 5. Record blood sugar readings as instructed. Call if BG consistently <70 or >250. [phone] Patient has been checking blood glucoses 4 times daily for the past 90 days. Patient needs to continue checking blood glucoses 4 times daily. Blood glucose readings are used to adjust medication or insulin doses for meals, monitor dietary compliance, and adjust for high or low blood glucoses by patient on a daily basis. Blood glucose readings are reviewed at office visits for adjustment in medication regimen and assistance with dietary management, and other self- management issues including exercise, etc. Prognosis: Good. Duration of need for diabetes testing equipment: Permanent #150 strips/month prescribed. 6. Bring blood sugar meter to follow up appointment. Orders Placed This Encounter Procedures Comprehensive Metabolic Panel CBC and Differential Hemoglobin A1c Lipid Panel Microalbumin/Creatinine Ratio, UR Random T4, Free TSH Electronically Signed by: Krunal Wilson CNP 03/23/20 3:44 PM documented in this encounter Assessments Diagnosis Controlled type 1 diabetes mellitus with hyperglycemia (HCC)- Primary Diagnosis Type 1 diabetes mellitus without complication (HCC)- Primary Type I (juvenile type) diabetes mellitus without mention of complication, not stated as uncontrolled Mixed hyperlipidemia Diagnosis Type 1 diabetes mellitus without complication (HCC)- Primary Type I (juvenile type) diabetes mellitus without mention of complication, not stated as uncontrolled Mixed hyperlipidemia Diagnosis Type 1 diabetes mellitus without complication (HCC) Type I (juvenile type) diabetes mellitus without mention of complication, not stated as uncontrolled Mixed hyperlipidemia Diagnosis Type 1 diabetes mellitus without complication (HCC)- Primary Type I (juvenile type) diabetes mellitus without mention of complication, not stated as uncontrolled Mixed hyperlipidemia Chief Complaint and Reason for Visit Chief Complaint INT LABS Chief Complaint PROSTATE CA Chief Complaint PROSTATE CA 6 M FU E ORDER RIGHT LEG TRAUMA Reason for Visit Diabetes mellitus ty pe 1, controlled, without complications Insulin pump titration Mixed hyperlipidemia Presence of insulin pump Chief Complaint 6 M FU E ORDER RIGHT LEG TRAUMA 3 M FU Reason for Visit Diabetes mellitus ty pe 1, controlled, without complications Insulin pump titration Mixed hyperlipidemia Presence of insulin pump Elevated blood pressure reading in office without diagnosis of hypertension Diabetes mellitus type 1, controlled, without complications Insulin pump titration Mixed hyperlipidemia Presence of insulin pump Chief Complaint 3 M FU 3 M FU INT LABS Reason for Visit Diabetes mellitus ty pe 1, controlled, without complications Elevated blood pressure reading in office without diagnosis of hypertension Insulin pump titration Mixed hyperlipidemia Presence of insulin pump Diabetes mellitus type 1, controlled, without complications Elevated blood pressure reading in office without diagnosis of hypertension Insulin pump titration Mixed hyperlipidemia Presence of insulin pump Chief Complaint Admit Date 3 M FU April 24, 2024 8:05am 1 Y FU May 06, 2024 7:25 am 3 M FU July 17, 2024 8:02a m Reason for Visit Admit Date Diabetes mellitus type 1, co ntrolled, without complications April 24, 2024 8:05am Hypertension April 24, 2024 8:05am Insulin pump titration April 24 8:05am Microalbuminuria April 24, 2024 8:05am Mixed hyperlipidemia April 24, 2024 8:05am Presence of insulin pump April 24, 2024 8:05am Diabetes mellitus type 1, co ntrolled, without complications May 06, 2024 7:25am Mixed hyperlipidemia May 06, 2024 7:2 5am Immunization declined May 06, 2024 7: 25am Annual wellness visit May 06, 2024 7: 25am History of prostate cancer May 06 7:25am Essential hypertension May 06, 2024 7 :25am History of anemia May 06, 2024 7:25 am Additional Source Comments (unrecognized sect ion and content) No Status Records FoundNo Status Records FoundNo Status Records FoundNo Status Records FoundNo Status Records FoundNo Status Records Found INFORMATION SOURCE (unrecogn ized section and content) DATE CREATED AUTHOR 11/19/2017 [facility] DATE CREATED AUTHOR AUTHOR'S ORGANIZ ATION 07/21/2019 [employer] DATE CREATED AUTHOR AUTHOR'S ORGANIZ ATION 01/31/2020 [facility] DATE CREATED AUTHOR AUTHOR'S ORGANIZ ATION 05/07/2021 [facility] DATE CREATED AUTHOR AUTHOR'S ORGANIZ ATION 01/30/2023 [facility] DATE CREATED AUTHOR AUTHOR'S ORGANIZ ATION 07/20/2024 [facility] Reason for Visit (unrecogniz ed section and content) Reason Comments Diabetes Mellitus Status Reason Specialty Diagnoses / Procedures Referred By Contact Referred To Contact Closed Specialty Services Required/Patien t's Best Interest Endocrinology Diagnoses Controlled type 1 diabetes mellitus with hyperglycemia (HCC) Yesi Lombardo, [employer] [address] [place] [address] Elizabeth Glynn MD [address] [address] Reason Comments Diabetes Mellitus Reason Comments Follow-up Diabetes 4 month fol low up. Patient voices no concerns or complaints today. Reason Onset Date Comments Medication Refill 10/16/2020 Reason Comments Medicare Annual Wellness Visit Subsequen t 4 month follow up w labs Care Teams (unrecognized sec tion and content) Craft Demonstrator Relationship Specialty Start Date End Date Kaylan Fajardo MD [address] [place] [address] PCP - General Internal Medicine 05/15/18 Craft Demonstrator Relationship Specialty Start Date End Date Kaylan Fajardo MD [address] [place] [address] PCP - General Internal Medicine 05/15/18 Craft Demonstrator Relationship Specialty Start Date End Date Kaylan Fajardo MD [address] [place] [address] PCP - General Internal Medicine 05/15/18 Team Status: Active Member Role Status Dates Dr. Kaylan Fajardo MD Family Provider Active Dr. Kaylan Fajardo MD Primary Care Provider Active Team Status: Inactive Member Role Status Dates Dr. Kaylan Fajardo MD Primary Care Provider Active Dr. Tadeo Benítez MD Attending Provider Active Team Status: Inactive Member Role Status Dates Dr. Kaylan Fajardo MD Primary Care Provider Active Dr. Tadeo Benítez MD Attending Provider, Referr ing Provider Active Team Status: Inactive Member Role Status Dates Dr. Kaylan Fajardo MD Primary Care Provider, Referr ing Provider Active AJ Knapp Attending Provider Active Team Status: Active Member Role Status Dates Dr. Kaylan Fajardo MD Primary Care Provider Active AJ Knapp Attending Provider, Referring Pr ovider Active Team Status: Inactive Member Role Status Dates Dr. Kaylan Fajardo MD Primary Care Provider Active Dr. Ernesto Montana DO Emergency Provider Active Team Status: Inactive Member Role Status Dates Dr. Kaylan Fajardo MD Primary Care Provider Active Charis Lopez NP-C Attending Provider, Referring Pr ovider Active Team Status: Active Member Role Status Dates Dr. Kaylan Fajardo MD Family Provider Active Team Status: Inactive Member Role Status Dates Dr. Kaylan Fajardo MD Referring Provider Active AJ Knapp Attending Provider Active Team Status: Inactive Member Role Status Dates Dr. Kaylan Fajardo MD Primary Care Provider Active Dr. Ernesto Montana DO Attending Provider, Emergency Provider Active Team Status: Inactive Member Role Status Dates Dr. Kaylan Fajardo MD Primary Care Pr ovider, Attending Provider, Referring Provider Active Team Status: Inactive Member Role Status Dates AJ Knapp Attending Provider Active Craft Demonstrator Relationship Specialty Start Date End Date Kaylan Fajardo MD [address] [place] [address] PCP - General 07/08/19 Kaylan Fajardo MD [address] [place] [address] PCP - MSSP ACO Attributed Provider 06/04/22 Team Status: Active Member Role Status Dates Dr. Amelia Monique MD Primary Care Provider Active Team Status: Inactive Member Role Status Dates Dr. Amelia Monique MD Primary Care Provider Active Start: April 24, 2024 End: April 24, 2024 Dr. Amelia Monique MD Referring Provider Active Start: April 24, 2024 End: April 24, 2024 AJ Knapp Attending Provider Active Start: April 24, 2024 End: April 24, 2024 Team Status: Inactive Member Role Status Dates Dr. Kaylan Fajardo MD Referring Provider Active Start: May 06, 2024 End: May 06, 2024 Dr. Amelia Monique MD Primary Care Provider Active Start: May 06, 2024 End: May 06, 2024 Dr. Amelia Monique MD Attending Provider Active Start: May 06, 2024 End: May 06, 2024 Team Status: Inactive Member Role Status Dates Dr. Amelia Monique MD Primary Care Provider Active Start: July 17, 2024 End: July 17, 2024 Dr. Amelia Monique MD Referring Provider Active Start: July 17, 2024 End: July 17, 2024 AJ Knapp Attending Provider Active Start: July 17, 2024 End: July 17, 2024 Goals (unrecognized section and content) Goals may be documented in a n alternate sectionGoals may be documented in an alternate sectionGoals may be documented in an alternate sectionGoals may be documented in an alternate sectionGoals may be documented in an alternate sectionGoals may be documented in an alternate sectionGoals may be documented in an alternate sectionGoals may be documented in an alternate section FOR RECORDS PERTAINING TO PATIENTS WHO ARE OR HAVE BEEN ENROLLED IN A CHEMICAL DEPENDENCY/SUBSTANCEABUSE PROGRAM, SOME INFORMATION MAY BE OMITTED. This clinical summary was aggregated from multiple sources. Caution should be exercised in using it in the provision of clinical care. This summary normalizes information from multiple sources, and as a consequence, information in this document may materially change the coding, format and clinical context of patient data. In addition, data may be omitted in some cases. CLINICAL DECISIONS SHOULD BE BASED ON THE PRIMARY CLINICAL RECORDS. [employer] provides no warranty or guarantee of the accuracy or completeness of information in this document.
[2024-10-10 08:47] LABS: Creatinine, Urine (random) 70.00 mg/dL (39.00-259.00); Microalbumin,Random Urine < 12.0 mg/L (<20 mg/L)
[2024-10-10 09:02] LABS: AST(SGOT) 26 U/L (<=37); Alanine Aminotransfer ALT/SGPT 31 U/L (<=46); Albumin, Serum 3.6 g/dL (3.4-4.8); Alkaline Phosphatase 61 U/L (40-129); Anion Gap 11 (5-15); BUN 14 mg/dL (4-19); BUN/Creat Ratio 17.9 RATIO (10-20); Calcium,Total 8.8 mg/dL (7.6-11.0); Carbon Dioxide 23.6 mmol/L (21.0-32.0); Chloride 106 mmol/L (98-108); Cholesterol 168 mg/dL (<=200); Globulin 2.3 g/dL (2.2-4.2); Glucose 102 mg/dL (70-99); Low Density Lipoprotein Calc. 102 mg/dL; Potassium 4.4 mmol/L (3.3-5.1); Triglycerides 75 mg/dL; Very Low Density Lipoprotein 15 mg/dL (5-40); cholesterol:hdl ratio screen 3.30
[2024-10-10 09:03] LABS: PSA,Total - Annual Screen < 0.02 ng/mL (0.02-4.00); Vitamin D,25 Hydroxy 46.1 ng/mL (30-100)
== END | disposition home or self-care (01) ==
LOC: LAB 06:03
PROVIDERS: PCP Internal Medicine; Referring Provider Nurse Practitioner Family; Visit Provider Nurse Practitioner Family
DX: E10.9 Type 1 diabetes mellitus without complications (principal); Z12.5 Encounter for screening for malignant neoplasm of prostate; E55.9 Vitamin D deficiency, unspecified
CPT/HCPCS: 36415; 80053; 80061; 82043; 82306; 82570; 84153; 84443; G0103